=== PATIENT | male | born 1980 | race Caucasian/White ===

== ENCOUNTER 2017-07-11 08:35 | Emergency (ER) | payer MEDICAID, SELFPAY ==
[2017-07-11 08:36] VITALS: BP 173/110; PULSE 109; RESP 16; TEMP 37.1; O2SAT 97; BMI 35.0
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
== END 2017-07-11 09:10 | disposition home or self-care (01) ==
PROVIDERS: Emergency Provider Emergency Medicine
DX: G47.00 Insomnia, unspecified (principal)
CPT/HCPCS: 99282

== ENCOUNTER → 2017-10-29 14:53 | Outpatient (CLI) | payer MEDICAID, SELFPAY ==
[2017-10-29 15:45] LABS: Absolute Lymphocyte Count 2.88 X10^3/ul (0.83-4.51); Basophil# 0.03 X10^3/uL; Basophil% 0.3 % (0-1); Eosinophil# 0.06 X10^3/uL; Eosinophils% 0.6 % (0-5); Hematocrit 46.2 % (40-54); Lymphocyte # 2.88 X10^3/ul (4.0); Lymphocyte % 29.3 % (19-41); Mean Corp Hgb Conc 34.6 g/gl (32-36); Mean Corpuscular Hgb 29.9 pg (27.0-32.0); Mean Corpuscular Volume 86.2 fL (80-94); Mean Platelet Vol. 9.1 fl (6.2-12.0); Monocyte# 0.82 X10^3/uL; Monocyte% 8.3 % (0-10); Neutrophil # 5.97 X10^3/uL (2.7-7.7); Neutrophil % 60.8 % (47-70); Platelet Count 278 K/mm3 (150-450); RBC Distribution Width CV 13.6 % (11.6-14.6); RBC Distribution Width SD 42.1 fl (35.1-43.9); Red Blood Count 5.36 M/mm3 (4.6-6.2); White Blood Count 9.8 K/mm3 (4.4-11.0)
[2017-10-29 15:49] LABS: POSITIVE COUNT NO; POSITIVE DIFFERENTIAL NO; POSITIVE MORPHOLOGY NO
[2017-10-29 16:14] LABS: ALB/GLOB Ratio 1.2 RATIO (0.9-2.4); AST(SGOT) 24 U/L (15-37); Alanine Aminotransfer ALT/SGPT 79 U/L (16-61); Albumin, Serum 4.4 g/dL (3.2-5.0); Alkaline Phosphatase 125 U/L (45-117); Anion Gap 11 (5-15); BUN 7 mg/dL (7-18); Calcium,Total 9.1 mg/dL (8.5-10.1); Chloride 103 mmol/L (98-107); Creatinine, Serum 1.17 mg/dL (0.70-1.30); EST Glomerular Filtration Rate 75 mL/min (>60); Est Glom Filt Rate - Afr Amer 91 mL/min (>60); Globulin 3.8 g/dL (2.2-4.2); Glucose 96 mg/dL (74-106); Potassium 3.7 mmol/L (3.5-5.1); Protein, Total 8.2 g/dL (6.4-8.2); Sodium Level 138 mmol/L (136-145)
== END ==
PROVIDERS: Family Provider Family Medicine; PCP Family Medicine; Visit Provider Family Medicine
DX: Z01.818 Encounter for other preprocedural examination (principal)
CPT/HCPCS: 36415; 80053; 85025

== ENCOUNTER 2017-11-19 12:35 | Inpatient (IN) | payer MEDICAID, SELFPAY ==
[2017-11-18 08:56] VITALS: BMI 33.3
[2017-11-19] VITALS (9 sets, daily range): BP systolic 121–170; BP diastolic 70–102; PULSE 88–118; RESP 16–20; TEMP 35.9–37.2; O2SAT 95–100; BMI 33.3
--- NOTE | 2017-11-19 | BON_PTH ---
PATIENT: ROBERT BRADFORD LOC: MS3 U#:[id number] AGE/SX: 37/M ROOM: MS308 RE11/19/[address]: Dr. Michele Garcia DPM : 1980 BED: 1 DIS: 11/21/2017 SPEC #: [id number] RECD: 11/19/17 12:35 STATUS: JANIE REQ #: [id number] ALEX: 11/19/17 00:[address]: Michele Garcia DEPT: SURGICAL PATHOLOGY RECD BY: Taj Eaton ENTERED: 11/19/17 12:35 SP TYPE: Bone OTHR DR: Dr. Blessing Martino MD Tissues: Bone of foot, NOS Procedures: Decalcification bone/plaque Surgery Specimen Level III HEADER OPERATION: Removal hardware, chilectomy / arthroplasty first MPJ PRE-OP DIAGNOSIS: Osteoarthritis, painful hardware, nonunion third tarsometatarsal TISSUE SUBMITTED: Right first metatarsophalangeal joint MICROSCOPIC DIAGNOSIS Right first metatarsophalangeal joint: Fragments of bone with reactive changes. KATIE:alex 11/24/17 MICROSCOPIC DESCRIPTION Slides are reviewed. GROSS DESCRIPTION Received in fixative is one container labeled with the patient's name and designated right first metatarsophalangeal joint. The specimen consists of four irregular fragments of pink-minor bony tissue ranging in size from 1 to 3 cm in greatest dimension. Keyboarding Clerk sections from all fragments are submitted in one cassette after decalcification. / AM:alex 11/19/17 TC:5 CPT: 40101, 48418
--- NOTE | 2017-11-19 07:30 | RAD_ITS ---
STUDY: X-RAY - RIGHT FOOT CLINICAL: Male, 37 years old. Fracture TECHNIQUE: Intraoperative view(s) of the foot. COMPARISON: April 30, 2017 FINDINGS: Intraoperative fluoroscopy utilized for 0 minutes 45 seconds . 8 fluoroscopic images are submitted RAD/Foot 2 Views IMPRESSION: Intraoperative fluoroscopy Electronically Signed: Derrick Orr MD at 14:28 EDT , Service support ,
[2017-11-19] MEDS: Calcium Chloride 1 GM/10 ML Syringe IV (08:10)
[2017-11-19] MEDS: Heparin 10,000 UNITS/10 ML Vial 10000 UNITS (08:10)
[2017-11-19] MEDS: Bupivacaine Mpf 0.5% 30 ML VIAL (10:08)
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
--- NOTE | 2017-11-19 11:22 | RAD_ITS ---
STUDY: X-RAY - RIGHT FOOT CLINICAL: Male, 37 years old. Bone marrow aspiration from the heel TECHNIQUE: 2 view(s) of the foot. COMPARISON: April 30, 2017 FINDINGS: There are postsurgical changes status post fusion of the first second and third tarsal/metatarsal joints. There is residual hardware seen within the third toe as well as a threaded screw in the navicular. Other previously noted hardware has been removed. RAD/Foot 2 Views IMPRESSION: Post surgical changes of the first through third toes with residual orthopedic hardware in the third toe and navicula Electronically Signed: Michele Moreno MD at 16:45 EDT , Service support ,
[2017-11-19] MEDS: HYDROmorphone 1 MG/ML Syringe IV ×4 (11:58→21:45)
--- NOTE | 2017-11-19 12:20 | NURSING ---
PT DOES NOT GET VACCINES
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
[2017-11-19] MEDS: Ketorolac 30 MG/ML Syringe IV (13:01)
[2017-11-19] MEDS: Tamsulosin HCl 0.4 MG Capsule PO (13:01)
[2017-11-19] MEDS: oxyCODONE 5 MG Tablet 10 MG PO ×2 (14:11→20:08)
[2017-11-19] MEDS: Pregabalin 75 MG Capsule PO (14:12)
[2017-11-19] MEDS: Cefazolin 1 GM/50 ML BAG IV (15:36)
--- NOTE | 2017-11-19 17:32 | PCA ---
Performed straight catheterization on pt. pt tolerated well and 1000mL was taken out. Urine yellow, clear and no odor.
[2017-11-20] MEDS: Zolpidem Tartrate 5 MG Tablet PO ×2 (00:17→21:10)
[2017-11-20] MEDS: oxyCODONE 5 MG Tablet 10 MG PO ×4 (00:17→23:56)
[2017-11-20] MEDS: PARoxetine 10 MG Tablet 30 MG PO ×2 (00:20→21:09)
[2017-11-20] MEDS: Cefazolin 1 GM/50 ML BAG IV ×2 (00:20→07:17)
[2017-11-20] MEDS: Amitriptyline 10 MG Tablet 30 MG PO ×2 (00:20→21:10)
[2017-11-20] MEDS: Pantoprazole Sodium 20 MG Tablet PO ×2 (00:20→08:51)
[2017-11-20] MEDS: 0.9% NaCl Peripheral Flush Adult/Peds IV ×13 (00:21→22:22)
[2017-11-20] MEDS: HYDROmorphone 1 MG/ML Syringe IV ×6 (01:31→22:22)
[2017-11-20] MEDS: ALPRAZolam 0.5 MG Tablet PO ×3 (01:31→21:10)
[2017-11-20 02:00] VITALS: BP 150/87; PULSE 99; RESP 16; TEMP 37.6; O2SAT 94
[2017-11-20] MEDS: Pregabalin 75 MG Capsule PO ×2 (04:10→12:02)
--- NOTE | 2017-11-20 07:41 | PCM.PROGNOTE ---
Patient Problems: Active and Suspected Problems (Last Updated 08/24/17 @ 15:36 by Ana Felix) Painful retained right foot hardware (Acute) Subjective: Patient was seen this morning for follow up on right foot hardware removal, calcaneus bone marrow aspiration and injection of Ignite graft to 3rd tarsometatarsal arthrodesis site, and 1st metatarsal phalangeal joint cheilectomy arthroplasty. He was resting in bed. He relates foot is painful, he is on Dilaudid, Toradol, oxycodone, along with his normal medications Lyrica, Flexeril; he also received a right lower extremity popliteal block after surgery yesterday which may be still in effect, but appears pain is controlled at this time. Patient denies fever, chills, nausea or vomiting. - Physical Exam General: Alert, Oriented x3, Cooperative, No apparent distress Extremities: Capillary Refill Less than 3 Seconds, No Calf Tenderness, - - Right foot: dressing clean, dry and intact, no evidence of active bleeding, no strikethrough on dressing, CFT < 2 seconds to all toes, temperature normal, patient able to move toes and foot. Calf soft and supple bilateral, no evidence of DVT bilateral. Vital Signs Temp Pulse Resp BP Pulse Ox 99.6 F H 99 16 150/87 H 94 11/20/17 02:00 11/20/17 02:00 11/20/17 02:00 11/20/17 02:00 11/20/17 02:00 Oxygen Delivery Method Room Air Weight: 117.9 kg Body Mass Index (BMI) 33.3 Intake and Output for Last 24 Hours 11/18/17 11/19/17 11/20/17 23:59 23:59 23:59 Intake Total 1800 / 1800 2657 / 2657 Output Total 1250 / 1250 2325 / 2325 Balance 550 / 550 332 / 332 Laboratory Tests Past 24 Hrs 11/20/17 11/20/17 07:13 07:13 WBC Pending RBC Pending Hgb Pending Hct Pending MCV Pending MCH Pending MCHC Pending RDW Pending RDW Differential Pending Plt Count Pending Neut % (Auto) Pending Absolute Neuts (auto) Pending Total Counted Pending Sodium Pending Potassium Pending Chloride Pending Carbon Dioxide Pending Anion Gap Pending BUN Pending Creatinine Pending Est GFR (MDRD) Af Amer Pending Est GFR (MDRD) Non-Af Pending BUN/Creatinine Ratio Pending Glucose Pending Calcium Pending Medical Necessity - Tobacco Use Smoking Status: Never smoker Assessment/Plan All Active Problems (Last Updated 08/24/17 @ 15:36 by Ana Felix) Painful retained right foot hardware (Acute) Rheumatoid arthritis (Acute) Inadequate pain control (Acute) -s/p right foot hardware removal, calcaneus bone marrow aspiration and injection of Ignite graft to 3rd tarsometatarsal arthrodesis site, and 1st metatarsal phalangeal joint cheilectomy arthroplasty on 11/19/17 -Post operative pain -Chronic pain Continue with pain control. Once his pain is controlled with oxycodone he is able to go home - possibly tomorrow. Keep right foot elevated, no weightbearing right foot. Keep dressing right foot clean, dry, and intact. Appreciate medicine teams assistance.
[2017-11-20 07:42] LABS: Absolute Lymphocyte Count 2.05 X10^3/ul (0.83-4.51); Absolute Neutrophil Count 6.2 X10^3/uL (2.0-7.7); Basophil# 0.03 X10^3/uL; Basophil% 0.3 % (0-1); Eosinophil# 0.09 X10^3/uL; Hematocrit 42.9 % (40-54); Hemoglobin 13.9 g/dl (13.0-16.5); Lymphocyte # 2.05 X10^3/ul (4.0); Lymphocyte % 22.1 % (19-41); Mean Corp Hgb Conc 32.4 g/gl (32-36); Mean Corpuscular Hgb 28.8 pg (27.0-32.0); Mean Corpuscular Volume 88.8 fL (80-94); Mean Platelet Vol. 8.3 fl (6.2-12.0); Monocyte# 0.91 X10^3/uL; Monocyte% 9.8 % (0-10); Neutrophil # 6.15 X10^3/uL (2.7-7.7); Neutrophil % 66.5 % (47-70); Platelet Count 218 K/mm3 (150-450); RBC Distribution Width CV 14.1 % (11.6-14.6); RBC Distribution Width SD 45.9 fl (35.1-43.9); Red Blood Count 4.83 M/mm3 (4.6-6.2); White Blood Count 9.3 K/mm3 (4.4-11.0)
[2017-11-20 07:45] LABS: POSITIVE COUNT NO; POSITIVE DIFFERENTIAL NO; POSITIVE MORPHOLOGY NO
[2017-11-20 07:50] LABS: Anion Gap 4 (5-15); BUN 13 mg/dL (7-18); BUN/Creat Ratio 12.9 RATIO (10-20); Calcium,Total 8.4 mg/dL (8.5-10.1); Chloride 103 mmol/L (98-107); Creatinine, Serum 1.01 mg/dL (0.70-1.30); EST Glomerular Filtration Rate 89 mL/min (>60); Est Glom Filt Rate - Afr Amer 108 mL/min (>60); Estimated Creatinine Clearance 117.56 ml/min; Glucose 93 mg/dL (74-106); Potassium 3.9 mmol/L (3.5-5.1); Sodium Level 136 mmol/L (136-145)
[2017-11-20] MEDS: Ketorolac 30 MG/ML Syringe IV ×2 (08:45→18:43)
[2017-11-20] MEDS: Docusate Sodium 100 MG Capsule 200 MG PO ×3 (08:48→22:27)
[2017-11-20] MEDS: Heparin Injection (Vial) 5,000 UNIT/ML VIAL 5000 UNIT SC ×2 (08:51→21:11)
[2017-11-20] MEDS: Tamsulosin HCl 0.4 MG Capsule PO (08:52)
[2017-11-20 08:54] VITALS: BP 129/85; PULSE 87; RESP 18; TEMP 37.1; O2SAT 95
--- NOTE | 2017-11-20 09:15 | PCA ---
RN IN WITH PT
--- NOTE | 2017-11-20 10:30 | NURSING ---
pt medicated for pain as requested and discussed with primary RN. pt verbalized he feels pain medication are helping but states he has been on them for a long time and he doesn't think they last. noted slightly diaphoretic skin and pt requesting to have personal belonging bags within reach. call light within reach
--- NOTE | 2017-11-20 10:57 | NURSING ---
in to patient's room as per gasoline dragline operator pt asking her to call dr. lang for him. questioned patient as to why need to call dr. lang states that he wanted to ask dr. lang if he could do another block, states the pain medication is not lasting. informed patient request like this needs to come through the nurse. pt states well i know you're busy and didn't want to bother you. again informed the patient request like this needs to be through the nurse and that this nurse will discuss with primary and see about talking w/ dr. lang regarding his request.
--- NOTE | 2017-11-20 11:46 | PCA ---
therapy working with pt
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
--- NOTE | 2017-11-20 12:13 | CASEMGMT ---
SOCIAL WORK: Referral received from [facility] for SW to initiate a referral to [facility] Rehab unit on behalf of patient. SW initiated contact with Eve to make requested referral; advised her of patient insurance and need for pre-cert. She reports that pre-cert cannot be started until Wednesday if patient is accepted by caregivers non medical. She will follow up with primary nursing home social worker on Wednesday. VICTORINO Maher
--- NOTE | 2017-11-20 12:35 | CASEMGMT ---
CM INITIAL ASSESSMENT: Home: Patient lives alone, in a two story home, with his mother. He states he takes care of her and expresses concern for her wellbeing. The patient does not drive. He uses taxi vouchers, through [employer], to get to appointments. HHS/Aides: Denies DME: Patient states he has a cane. He states that Dr. Garcia has ordered crutches for him, but he hasn't received these yet. Home Oxygen: Denies Pharmacy: [facility] [place] Advance Directives: Patient states he does have a medical POA. He does not have these documents. Medical POA is Juan Sosa, friend. He does not have contact information for this friend. PCP: Dr. Sheffield Specialists: Dr. Garcia (foot & ankle) , Dr. Garcia (pain management) DC Plan: Undetermined. Patient declined therapy today d/t pain. Social work referral for assistance with financial concerns patient stated. CM will continue to follow for safe and effective discharge planning.
--- NOTE | 2017-11-20 13:02 | NURSING ---
Despite all the prn and scheduled pain medications, pt crying, high anxiety. Still very painful. education given regarding anxiety and pain. Pt had recently called the dimmer board operator and asked for Dr. Garcia. Aviva dorsey nurse found out and talked with the pt about this. Mr. Hunter called dimmer board operator to see if Dr. Garcia could re-do the block. After this nurse talking with pt about how it is un-likely for the block to be done, pt still very concentrated on getting a block. Informed the pt that I could call Dr. Garcia and see what he thought. Dr. Garcia aware, no orders for block. Mr. Hunter informed of this and that this nurse will talk with Dr. Correa about pain medication and that it is not working.
--- NOTE | 2017-11-20 14:00 | CASEMGMT ---
Patient seen per RN MINH's stated request due to patient statement regarding not having a working hot water tank. SW met with patient in his room to introduce self and SW role and to assess for needs. Patient has been heating water on a stove burner for a couple of months and requests information for assistance with getting a new hot water tank. He also requests financial assistance with his cell phone and with repair of a truck that has not worked for 4 years. Patient has not been employed for 13 years. He resides with his mother who has SALAZAR and Fibromyalgia. She reportedly receives Social Security and a small pension. Patient receives food stamps and is on [employer]. They use [employer] transportation through [employer] and a neighbor assists when able. Patient has reportedly applied for SSDI numerous times and been denied. PCP is Dr. Sheffield. SW provided patient with information on [employer]'s programs along with their contact information (which includes their car repair program); contact information for [employer] and [employer] Cell Phone Assistance Program application. Patient already familiar with [employer] and has received assistance from them throughout this past year. No further needs identified. Update provided to [facility]. VICTORINO Maher
--- NOTE | 2017-11-20 14:22 | NURSING ---
This nurse assisted pt to walk to bathroom using non-bearing on the rt foot and using wheeled walker. Feels like has to have bm. Offered pt pain medication. Wanted to wait one hour but rating pain 8 out of 10. this nurse encouraged him to take pain meds now. Pt agreed. Does not appear to be in pain. States Its a lot better then it was. Will continue to monitor.
[2017-11-20 14:25] VITALS: BP 144/87; PULSE 90; RESP 18; TEMP 37.1; O2SAT 98
[2017-11-20] MEDS: Bisacodyl 10 MG Suppository RECTAL (16:48)
--- NOTE | 2017-11-20 19:49 | NURSING ---
pt has been fixated on his bowels this afternoon/evening. colace po and warm prune juice given. Pt then requesting suppository since the later two did not work. pt asked how long it would take for suppository to work. Now pt states he wants an enema b/c suppository has not worked. THis nurse educated on waiting for colace and suppository to work and not enough time has gone by to work. pt very fixated on enema. At shift change, pt called out and with flat affect stated he wants to go home. When this nurse and bakeshop cleaner nurse that is assigned to him approached him about it patient stated, because I can give myself an enema at home. This nurse asked pt if he thought his pain would be controlled at home, No I don't think so but still wants to go home. Dr. Garcia paged, informed and at first was okay with Dr. Garcia for patient to go home but then there is no way for pain medication to be called in to pharmacy and pharmacy already closed. Dr. Garcia then talked with Asael Hunter over the phone for approximately 10min. Pt is staying and Dr. Garcia ordered a fleets enema. Saritha book sorter RN aware.
[2017-11-20 20:00] VITALS: BP 157/84; PULSE 83; RESP 16; TEMP 37; O2SAT 100
[2017-11-20] MEDS: Fleet Enema 1 ML RECTAL (21:11)
--- NOTE | 2017-11-20 23:15 | NURSING ---
Patient c/o chest pain. Vital wnl. EKG completed. Dr. tay notified of results, no new orders at this time. After EKG was preformed, pt stated pain was more related to upper abd pain than chest and that pain had decrease.
[2017-11-21 02:00] VITALS: BP 149/80; PULSE 86; RESP 18; TEMP 36.6; O2SAT 98
[2017-11-21 08:00] VITALS: BP 151/96; PULSE 79; RESP 18; TEMP 36.6
[2017-11-21] MEDS: Ibuprofen 600 MG Tablet PO (09:33)
[2017-11-21] MEDS: Pregabalin 75 MG Capsule PO (09:33)
[2017-11-21] MEDS: Docusate Sodium 100 MG Capsule 200 MG PO (09:33)
[2017-11-21] MEDS: oxyCODONE 5 MG Tablet 10 MG PO (09:34)
[2017-11-21] MEDS: Pantoprazole Sodium 20 MG Tablet PO (09:35)
[2017-11-21] MEDS: Heparin Injection (Vial) 5,000 UNIT/ML VIAL 5000 UNIT SC (09:35)
--- NOTE | 2017-11-21 10:38 | PCM.PROGNOTE ---
Patient Problems: Active and Suspected Problems (Last Updated 08/24/17 @ 15:36 by Ana Felix) Painful retained right foot hardware (Acute) Subjective: Patient was seen today for follow up right foot. He relates he feels good enough to go home today. He relates to abdominal pain, states he had a small bowel movement after enema yesterday, he is asking to also be discharged home with stool softer and an enema. - Physical Exam General: Alert, Oriented x3, Cooperative, No apparent distress Extremities: Capillary Refill Less than 3 Seconds, No Calf Tenderness, Peripheral Pulses Normal, - - Right foot: dressing clean, dry and intact, no evidence of active bleeding, no strikethrough on dressing, incision sites well coapted, no dehiscence, no evidence of infection, no cellulitis, no drainage, sutures intact, there is some edema to foot c/w normal post op course, CFT < 2 seconds to all toes, temperature normal, patient able to move toes and foot. Sensation intact to right foot, motor function intact to right foot. Calf soft and supple bilateral, no evidence of DVT bilateral. Vital Signs Temp Pulse Resp BP Pulse Ox 97.9 F 79 18 151/96 H 98 11/21/17 08:00 11/21/17 08:00 11/21/17 08:00 11/21/17 08:00 11/21/17 02:00 Oxygen Delivery Method Room Air Weight: 117.9 kg Body Mass Index (BMI) 33.3 Intake and Output for Last 24 Hours 11/19/17 11/20/17 11/21/17 23:59 23:59 23:59 Intake Total 1800 / 1800 3923 / 3923 510 / 510 Output Total 1250 / 1250 4775 / 4775 400 / 400 Balance 550 / 550 -852 / -852 110 / 110 Medical Necessity - Tobacco Use Smoking Status: Never smoker Assessment/Plan All Active Problems (Last Updated 08/24/17 @ 15:36 by Ana Felix) Painful retained right foot hardware (Acute) Rheumatoid arthritis (Acute) Inadequate pain control (Acute) -s/p right foot hardware removal, calcaneus bone marrow aspiration and injection of Ignite graft to 3rd tarsometatarsal arthrodesis site, and 1st metatarsal phalangeal joint cheilectomy arthroplasty on 11/19/17 -Post operative pain -Chronic pain From podiatry standpoint ok for patient to be discharged home, however pending medicine evaluation of abdominal pain. Have reviewed post op pain control with patient's pain management physician Dr. Garcia who recommended oxycodone 10mg tabs: 1.5 tabs q 4-6 hours prn pain for 1 week. A prescription was written and placed in the patient's chart. He is to keep right foot elevated, and no weightbearing right foot. The dressing was changed today, painted betadine solution to incision sites, and applied clean, dry, gauze and mamta dressing. He is to keep dressing right foot clean, dry, and intact. He is to follow up with me in office Sunday November 26, 2017. This was discussed with patient. He agreed with plan. All of his questions were answered. Appreciate medicine teams assistance.
--- NOTE | 2017-11-21 10:58 | PCM.DC.POD ---
Discharge Diet: Light diet - advance as tolerated Discharge Activity: May Not Drive Weight Bearing Status: No weight bearing - Strict nonweightbearing right foot Keep extremity elevated above heart level: Right Leg - Keep right foot elevated at all times Call your doctor if your incision/area has: Continuous Slow Oozing, Sudden Increased Bleeding, Increased Redness, Foul Smelling Discharge Call your doctor if you observe: Fever of 101 or Higher, Coldness, Increased Pain, Shortness of breath, Chest pain, Increased palpitations (irregular heartbeat), Calf discomfort, Uncontrolled pain Cleanse incision/area with: Do not get Incision Wet, Keep Dressing Clean & Dry Allergies/Adverse Reactions: Allergies No Known Allergies Allergy (Verified 07/11/17 08:39) Medications to take at Discharge Loratadine [Claritin] 10 mg PO DAILY 03/26/13 Ibuprofen [Motrin] 600 mg PO Q6H PRN PRN #20 tablet 03/31/13 Testosterone Cypionate [Testone Cik] 200 mg IM UD 07/23/15 Cyclobenzaprine [Flexeril] 10 mg PO TID PRN #20 tablet 08/16/15 Paroxetine HCl [Paxil] 30 mg PO QHS 11/25/16 Rabeprazole Sodium [Aciphex] 20 mg PO QHS 11/25/16 Clotrimazole/Betamethasone Dip [Lotrisone Cream] 15 gm TP BID 14 Days cream..g. 04/30/17 Tadalafil [Cialis] 5 mg PO PRN PRN 04/30/17 alprazolam 1 mg tablet 1 mg PO BID #60 tab 07/19/17 amitriptyline 10 mg tablet 30 mg PO QHS #90 tab 07/19/17 zolpidem 10 mg tablet 10 mg PO QHS #30 tab 08/24/17 ALPRAZolam [Xanax] 4 mg PO QHS 11/19/17 Omeprazole [Prilosec] 20 mg PO DAILY 11/19/17 Oxycodone HCl/Acetaminophen [Percocet 10-325 mg Tablet] 1 tablet PO Q6H PRN PRN 11/19/17 Pregabalin [Lyrica] 75 mg PO BID PRN PRN 11/19/17 Oxycodone [Oxyir] 15 mg PO Q4H PRN PRN #56 tab 11/21/17 The following prescriptions were given: Oxycodone [Oxyir] 15 mg PO Q4H PRN PRN #56 tab PRN Reason: Pain Primary Care Physician: Blessing Martino MD [Primary Care Provider] - Please Follow Up With: Michele Garcia DPM When: Sunday November 26, 2017 at [facility]
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
== END 2017-11-21 12:30 | disposition home or self-care (01) | DRG 231 ==
LOC: MS3 11-20 07:56 → SDC 11-20 07:56
PROVIDERS: Admitting Provider Internal Medicine; Family Provider Internal Medicine; PCP Internal Medicine; Visit Provider Podiatrist
PROC: 0QPN04Z Removal of Internal Fixation Device from Right Metatarsal, Open Approach (ICD-10-PCS; principal; 2017-11-19 07:15)
DX: T84.84XA Pain due to internal orthopedic prosthetic devices, implants and grafts, initial encounter (principal); F84.5 Asperger's syndrome; R33.9 Retention of urine, unspecified; M19.071 Primary osteoarthritis, right ankle and foot; M96.0 Pseudarthrosis after fusion or arthrodesis; Z98.1 Arthrodesis status; M79.7 Fibromyalgia; F41.9 Anxiety disorder, unspecified; F32.9 Major depressive disorder, single episode, unspecified; N52.9 Male erectile dysfunction, unspecified; K21.9 Gastro-esophageal reflux disease without esophagitis; E29.1 Testicular hypofunction; Z79.899 Other long term (current) drug therapy
CPT/HCPCS: 36415; 73620; 76000; 80048; 85025; 88304; 88311; 93005; 97161; C1713; J7120; A4216; J0330; J2405

== ENCOUNTER 2018-06-22 17:45 | Emergency (ER) | payer MEDICAID, SELFPAY ==
[2018-06-22 17:45] VITALS: BMI 35.0
[2018-06-22 17:46] VITALS: BP 160/86; PULSE 105; RESP 24; TEMP 36.3; O2SAT 100; BMI 32.3
--- NOTE | 2018-06-22 18:57 | ED.VISSUMM ---
- ER Visit Summary Date of Service: 06/22/18 Chief Complaint: Out of medication History of Present Illness: The patient is a 37 M who is requesting a refill of his alprazolam and Ambien. He ran out 3 days ago. He missed his doctor's appointment last week because he had difficulty scheduling the appointment. He says he was due for a refill on Wednesday, but that they would not refill his medication because he missed his appointment. He has a appointment for this Wednesday scheduled. He feels anxious and has trouble sleeping. He feels like he is having a panic attack. No seizures. No other new issues. Physical Examination: Patient is alert and oriented. Pacing about the room. Anxious. Denies suicidal or homicidal thoughts. Heart regular. Lungs clear. Skin unremarkable. Test Results: None performed Emergency Department Course and Treatment: I did check the patient's OARRS report. He was on alprazolam 1 mg twice a day and he was scheduled to run out yesterday. He was on Ambien 10 mg once a day and was scheduled to run out yesterday. Will refill a 3-day supply of these medications and the patient may follow-up with his physician on Wednesday. Treatment Plan: As above Disposition: Discharge Impression: 1. Anxiety This note was generated with [employer] dictation software. It may contain incorrect words, spelling, and punctuation that were not noted in review of the chart prior to signing ED Disposition - Plan for ED Patient: Chief Complaint: Anxiety Referrals: Blessing Martino MD [Primary Care Provider] -
--- NOTE | 2018-06-22 19:00 | ED.DEP ---
ED Disposition - Plan for ED Patient: Chief Complaint: Anxiety Instructions: ED Panic Attack Prescriptions: Zolpidem Tartrate [Ambien] 10 mg PO QHS 3 Days #3 tab ALPRAZolam [Xanax] 1 mg PO BID 3 Days #6 tab Referrals: Blessing Martino MD [Primary Care Provider] -
[2018-06-22] MEDS: LORazepam 1 MG Tablet PO (19:20)
--- OUTSIDE RECORDS SUMMARY | 2018-08-27 17:06 | XMS RPT_ITS ---
:1980 Author Organization OHIP Support Name Relationship Address Phone PORTER, KSENIA Unavailable [address] + [place] [address] UE Unavailable Unavailable Unavailable PORTER, KSENIA Unavailable [address] + [place] [address] UE Unavailable Unavailable Unavailable PORTER, KSENIA Unavailable [address] [phone] [place] [address] UE Unavailable Unavailable Unavailable PORTER, KSENIA Unavailable [address] [phone] [place] [address] UE Unavailable Unavailable Unavailable PORTER, KSENIA Unavailable [address] + [place] [address] UE Unavailable Unavailable Unavailable PORTER, KSENIA Unavailable [address] + [place] [address] UE Unavailable Unavailable Unavailable PORTER, KSENIA Unavailable [address] + [place] [address] UE Unavailable Unavailable Unavailable PORTER, KSENIA Unavailable [address] [phone] [place] [address] UE Unavailable Unavailable Unavailable PORTER, KSENIA Unavailable [address] [phone] [place] [address] UE Unavailable Unavailable Unavailable PORTER, KSENIA Unavailable [address] [phone] [place] [address] UE Unavailable Unavailable Unavailable PORTER, KSENIA Unavailable [address] [phone] [place] [address] UE Unavailable Unavailable Unavailable Care Team Providers Name Role Phone Bola Gong Attending Unavailable Michele Silverman Primary Care Unavailable Primay Care Physicia, No Primary Care Unavailable Yung Beckford Attending Unavailable Oleghe, Efewongbe Attending Unavailable Oleghe, Efewongbe Referring Unavailable Oleghe, Efewongbe Attending Unavailable Oleghe, Efewongbe Referring Unavailable Primay Care Physicia, No Primary Care Unavailable Qi Izquierdo Attending Unavailable Kontak, Michele Primary Care Unavailable Geonning, Michele Consulting Unavailable Geonning, Michele Attending Unavailable Wunning, Michele Referring Unavailable Oleghe, Efewongbe Primary Care Unavailable Sunny, Donte Admitting Unavailable Sunny, Donte Admitting Unavailable Sunny, Donte Attending Unavailable Wunning, Michele Referring Unavailable Oleghe, Efewongbe Primary Care Unavailable Wunning, Michele Consulting Unavailable Sunny, Donte Admitting Unavailable Sunny, Donte Attending Unavailable Wunning, Michele Referring Unavailable Oleghe, Efewongbe Primary Care Unavailable Wunning, Michele Consulting Unavailable Sunny, Donte Admitting Unavailable Sunny, Donte Attending Unavailable Wunning, Michele Referring Unavailable Oleghe, Efewongbe Primary Care Unavailable Wunning, Michele Consulting Unavailable Amado Kelsey Attending Unavailable Geonning, Michele Attending Unavailable Wunning, Michele Referring Unavailable Oleghe, Efewongbe Primary Care Unavailable MARION SILVERMAN Attending Unavailable MARION SILVERMAN Attending Unavailable MARION SILVERMAN Referring Unavailable MARION SILVERMAN Attending Unavailable MARION SILVERMAN Attending Unavailable Sari Garcia Attending Unavailable Sari Garcia Attending Unavailable Sari Garcia Attending Unavailable No Family Physician given Primary Care Unavailable Sari Garcia Attending Unavailable No Family Physician given Primary Care Unavailable [facility] Attending Unavailable No Family Physician given Primary Care Unavailable PROBLEMS PROBLEMS DATE TYPE CONDITION / CODE ATTENDING STATUS SOURCE 06/22/2018 Unknown G47.00 - Bola Gong Active [facility] unspecified / Hospital G47.00(ICD-10) Repository 06/22/2018 Unknown F41.8 - Other Bola Gong Active [place] specified anxiety Community disorders / Hospital F41.8(ICD-10) Repository 12/16/2017 Unknown M19.071 - Primary Sunny, Donte Active [facility] osteoarthritis, Community right ankle and Hospital foot / Repository M19.071(ICD-10) 01/07/2018 Unknown R07.9 - Chest Low, [place] Active [facility] pain, unspecified Community / R07.9(ICD-10) Hospital Repository 08/24/2017 Unknown F84.5 - Oleghe, Active [place] Asperger's Efewongbe Community syndrome / Hospital F84.5(ICD-10) Repository 07/06/2017 Admitting Unknown / [place], Active [facility] UNK(Unknown) [facility] Repository PROCEDURES PROCEDURES No Procedure Records FoundRESULTS RESULTS PROGRESS Observed: 06/28/2018 Status: COMPLETED Source: [place] 7:41 AM [facility] REPOSITORY HNO ID: [id number] Author: Marion Silverman Service: (none) Author Type: Physician Type: Progress Notes Filed: 06/28/2018 7:45 AM Note Text: Asael follows up for his chronic anxiety. Chronic pain. He continues to get narcotics from pain management. He was perturbed because we would not fill his prescription prior to his appointment date. PDMP website checked and validated. All prescriptions have been APPROPRIATELY filled. No suspicious activity was identified. 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 Dysmetabolic Syndrome X Fibromyalgia Depression Chronic anxiety Insomnia Degenerative Disc Disease, Lumbar Hypogonadism in Male Arthritis Bph (Benign Prostatic Hyperplasia) Bilateral Low Back Pain With Sciatica Midline Thoracic Back Pain Fibromyalgia Syndrome Essential Hypertension PAST MEDICAL HISTORY Diagnosis Date - Anxiety - BPH (benign prostatic hypertrophy) - DDD (degenerative disc disease) - Depression - Hyperlipidemia 9 years old - Insomnia - Knee pain, bilateral - Lisfranc dislocation, right, sequela 11/2016 - Rheumatoid arthritis (HCC) PAST SURGICAL HISTORY Procedure Laterality Date - PAST SURGICAL HISTORY OF Thoraic sol - PAST SURGICAL HISTORY OF Epideryal - PAST SURGICAL HISTORY OF D. septum ALLERGIES Seasonal Allergies MEDICATIONS ALPRAZolam 2 mg tablet Take 1 tablet by mouth twice daily as needed for up to 90 days. ALPRAZolam (XANAX) 1 mg tablet Take 1 tablet by mouth twice daily for 90 days. Along with the 2 mg tablet Blood Pressure Test Kit-Large (QUICK RESPONSE BP MONITOR) kit Check blood pressure weekly an as needed. (I10) Essential hypertension (primary encounter diagnosis) zolpidem (AMBIEN) 10 mg tab Take 1 tablet by mouth at bedtime as needed for up to 90 days. Tadalafil 5 mg tablet take 1 tablet by mouth once daily gabapentin (NEURONTIN) 300 mg capsule take 1 capsule by mouth three times a day metoprolol succinate ER (TOPROL XL) 50 mg 24 hr tablet take 1 tablet by mouth once daily oxybutynin (DITROPAN) 5 mg tablet take 1 tablet by mouth three times a day testosterone cypionate (DEPO-TESTOSTERONE) 200 mg/mL injection Inject 1 mL intramuscularly once each week for 90 days. tamsulosin ER (FLOMAX) 0.4 mg cap Take 1 capsule by mouth daily at bedtime. DULoxetine (CYMBALTA) 60 mg capsule Take 1 capsule by mouth once daily. cyclobenzaprine (FLEXERIL) 10 mg tablet Take 1 tablet by mouth once daily. PARoxetine (PAXIL) 30 mg tablet Take 1 tablet by mouth twice daily as needed. RABEprazole (ACIPHEX) 20 mg tablet Take 1 tablet by mouth once daily. Pramoxine-Hydrocortisone (ANALPRAM-HC) 1-1 % rectal cream 1 application by RECTAL route twice daily. Latex Gloves (LATEX GLOVES, LARGE) misc Use 1 pair 4 times a day as needed for applying ointment. ibuprofen (MOTRIN) 600 mg tablet Take 1 tablet by mouth every 6 hours as needed. alcohol swabs (ALCOHOL WIPES) padm Use as needed to clean up excess topical ointment. lidocaine (XYLOCAINE) 5 % ointment Apply 1 application to affected area three times daily as needed. Syringe with Needle, Disp, (BD LUER-HARI SYRINGE) 3 mL 22 x 1 1/2 syrg Inject 1 Each intramuscularly once each week. loratadine (CLARITIN) 10 mg tablet Take 1 tablet by mouth once daily. amitriptyline (ELAVIL) 10 mg tablet Take 1 tablet by mouth three times daily. 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 HEENT: No sinus congestion, earache, sore throat. Cardiac: No chest pain, palpitations, shortness of breath Resp: No cough, wheeze. GI: + R side abd pain. No change in bowel.s No reflux symptoms, food intolerance, bowel changes. : No urinary frequency, dysuria. MS: aggravation of ankle pain recently No pain or joint complaints. PHYSICAL EXAMINATION BP 126/86 Pulse 78 Resp 19 Ht 188 cm (6' 2) Wt 110.7 kg (244 lb) SpO2 100% BMI 31.33 kg/m? General: Alert and oriented, no distress, pleasant and cooperative. He is well groomed, no acute distress. He is walking on crutches. Heart: Regular, normal S1 and S2, no murmurs, rubs, or gallops Lungs: Clear to auscultation bilaterally Abdomen: There is mild abdominal pain just to the right of the umbilicus. No guarding rebound or mass. No swelling. Extremities: Feet/ankles without edema, posterior tibial pulses full and symmetrical Assessment/Plan: (I10) Essential hypertension (primary encounter diagnosis) Comment: His blood pressure is high Plan: Blood Pressure Test Kit-Large (QUICK RESPONSE BP MONITOR) kit A pressure cuff prescription written (F41.9) Anxiety Comment: Chronic anxiety with benzodiazepine dependency Plan: ALPRAZolam 2 mg tablet, ALPRAZolam (XANAX) 1 mg tablet He is advised he will only get his prescriptions at his appointment, the previous prescription was written for 90 day supply and he has to schedule his appointments accordingly. (G47.00) Insomnia, unspecified type Comment: As above Plan: zolpidem (AMBIEN) 10 mg tab Refill with caution Signed Prescriptions Disp Refills ALPRAZolam 2 mg tablet 60 tablet 2 Sig: Take 1 tablet by mouth twice daily as needed for up to 90 days. LESLI Class: C-IV ALEXANDRO: No ALPRAZolam (XANAX) 1 mg tablet 60 tablet 2 Sig: Take 1 tablet by mouth twice daily for 90 days. Along with the 2 mg tablet LESLI Class: C-IV ALEXANDRO: No Blood Pressure Test Kit-Large (QUICK RESPONSE BP MONITOR) kit 1 Kit 0 Sig: Check blood pressure weekly an as needed. (I10) Essential hypertension (primary encounter diagnosis) zolpidem (AMBIEN) 10 mg tab 30 tablet 2 Sig: Take 1 tablet by mouth at bedtime as needed for up to 90 days. LESLI Class: C-IV ALEXANDRO: No RTO: Within 90 days. Marion Silverman MD CNOV Observed: 06/24/2018 Status: COMPLETED Source: [place] 4:20 PM [facility] REPOSITORY Office Visit (FPWADS) SUZETTEASAEL ([id number]) 1980 M Date Time Provider Department 06/24/18 4:20 PM MARION SILVERMAN During your visit today, we recorded the following information about you: Pulse Respiration Blood pressure Weight 78/minute 19/minute 126/86 110.7 kg Height 1.88 m Gabriella Carrillo Carrie 06/24/2018 4:09 PM Signed Patient presents with: Follow Up Marion Silverman MD 06/28/2018 7:45 AM Signed Asael follows up for his chronic anxiety. Chronic pain. He continues to get narcotics from pain management. He was perturbed because we would not fill his prescription prior to his appointment date. PDMP website checked and validated. All prescriptions have been APPROPRIATELY filled. No suspicious activity was identified. 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 Dysmetabolic Syndrome X Fibromyalgia Depression Chronic anxiety Insomnia Degenerative Disc Disease, Lumbar Hypogonadism in Male Arthritis Bph (Benign Prostatic Hyperplasia) Bilateral Low Back Pain With Sciatica Midline Thoracic Back Pain Fibromyalgia Syndrome Essential Hypertension PAST MEDICAL HISTORY Diagnosis Date - Anxiety - BPH (benign prostatic hypertrophy) - DDD (degenerative disc disease) - Depression - Hyperlipidemia 9 years old - Insomnia - Knee pain, bilateral - Lisfranc dislocation, right, sequela 11/2016 - Rheumatoid arthritis (HCC) PAST SURGICAL HISTORY Procedure Laterality Date - PAST SURGICAL HISTORY OF Thoraic slo - PAST SURGICAL HISTORY OF Epideryal - PAST SURGICAL HISTORY OF D. septum ALLERGIES Seasonal Allergies MEDICATIONS ALPRAZolam 2 mg tablet Take 1 tablet by mouth twice daily as needed for up to 90 days. ALPRAZolam (XANAX) 1 mg tablet Take 1 tablet by mouth twice daily for 90 days. Along with the 2 mg tablet Blood Pressure Test Kit-Large (QUICK RESPONSE BP MONITOR) kit Check blood pressure weekly an as needed. (I10) Essential hypertension (primary encounter diagnosis) zolpidem (AMBIEN) 10 mg tab Take 1 tablet by mouth at bedtime as needed for up to 90 days. Tadalafil 5 mg tablet take 1 tablet by mouth once daily gabapentin (NEURONTIN) 300 mg capsule take 1 capsule by mouth three times a day metoprolol succinate ER (TOPROL XL) 50 mg 24 hr tablet take 1 tablet by mouth once daily oxybutynin (DITROPAN) 5 mg tablet take 1 tablet by mouth three times a day testosterone cypionate (DEPO-TESTOSTERONE) 200 mg/mL injection Inject 1 mL intramuscularly once each week for 90 days. tamsulosin ER (FLOMAX) 0.4 mg cap Take 1 capsule by mouth daily at bedtime. DULoxetine (CYMBALTA) 60 mg capsule Take 1 capsule by mouth once daily. cyclobenzaprine (FLEXERIL) 10 mg tablet Take 1 tablet by mouth once daily. PARoxetine (PAXIL) 30 mg tablet Take 1 tablet by mouth twice daily as needed. RABEprazole (ACIPHEX) 20 mg tablet Take 1 tablet by mouth once daily. Pramoxine-Hydrocortisone (ANALPRAM-HC) 1-1 % rectal cream 1 application by RECTAL route twice daily. Latex Gloves (LATEX GLOVES, LARGE) misc Use 1 pair 4 times a day as needed for applying ointment. ibuprofen (MOTRIN) 600 mg tablet Take 1 tablet by mouth every 6 hours as needed. alcohol swabs (ALCOHOL WIPES) padm Use as needed to clean up excess topical ointment. lidocaine (XYLOCAINE) 5 % ointment Apply 1 application to affected area three times daily as needed. Syringe with Needle, Disp, (BD LUER-HARI SYRINGE) 3 mL 22 x 1 1/2 syrg Inject 1 Each intramuscularly once each week. loratadine (CLARITIN) 10 mg tablet Take 1 tablet by mouth once daily. amitriptyline (ELAVIL) 10 mg tablet Take 1 tablet by mouth three times daily. 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 HEENT: No sinus congestion, earache, sore throat. Cardiac: No chest pain, palpitations, shortness of breath Resp: No cough, wheeze. GI: + R side abd pain. No change in bowel.s No reflux symptoms, food intolerance, bowel changes. : No urinary frequency, dysuria. MS: aggravation of ankle pain recently No pain or joint complaints. PHYSICAL EXAMINATION BP 126/86 Pulse 78 Resp 19 Ht 188 cm (6' 2) Wt 110.7 kg (244 lb) SpO2 100% BMI 31.33 kg/m? General: Alert and oriented, no distress, pleasant and cooperative. He is well groomed, no acute distress. He is walking on crutches. Heart: Regular, normal S1 and S2, no murmurs, rubs, or gallops Lungs: Clear to auscultation bilaterally Abdomen: There is mild abdominal pain just to the right of the umbilicus. No guarding rebound or mass. No swelling. Extremities: Feet/ankles without edema, posterior tibial pulses full and symmetrical Assessment/Plan: (I10) Essential hypertension (primary encounter diagnosis) Comment: His blood pressure is high Plan: Blood Pressure Test Kit-Large (QUICK RESPONSE BP MONITOR) kit A pressure cuff prescription written (F41.9) Anxiety Comment: Chronic anxiety with benzodiazepine dependency Plan: ALPRAZolam 2 mg tablet, ALPRAZolam (XANAX) 1 mg tablet He is advised he will only get his prescriptions at his appointment, the previous prescription was written for 90 day supply and he has to schedule his appointments accordingly. (G47.00) Insomnia, unspecified type Comment: As above Plan: zolpidem (AMBIEN) 10 mg tab Refill with caution Signed Prescriptions Disp Refills ALPRAZolam 2 mg tablet 60 tablet 2 Sig: Take 1 tablet by mouth twice daily as needed for up to 90 days. LESLI Class: C-IV ALEXANDRO: No ALPRAZolam (XANAX) 1 mg tablet 60 tablet 2 Sig: Take 1 tablet by mouth twice daily for 90 days. Along with the 2 mg tablet LESLI Class: C-IV ALEXANDRO: No Blood Pressure Test Kit-Large (QUICK RESPONSE BP MONITOR) kit 1 Kit 0 Sig: Check blood pressure weekly an as needed. (I10) Essential hypertension (primary encounter diagnosis) zolpidem (AMBIEN) 10 mg tab 30 tablet 2 Sig: Take 1 tablet by mouth at bedtime as needed for up to 90 days. LESLI Class: C-IV ALEXANDRO: No RTO: Within 90 days. Marion Silverman MD Referring Provider: SELF [200] Allergies As of Date: 06/24/2018 Noted Allergy Reaction SEASONAL ALLERGIES 09/01/2016 14 - Other: See Comments Comments: Itchy and watery eyes, cough, sneeze Date Reviewed: 06/24/2018 Reviewed by: Gabriella Carrillo Ma - Fully Assessed Reason for Visit: Follow Up [171] Primary Visit Diagnosis:Essential hypertension [I10] Other Visit Diagnoses:Anxiety [F41.9] Insomnia, unspecified type [G47.00] Order(s):ALPRAZolam 2 mg tabletTake 1 tablet by mouth twice daily as needed for up to 90 days.Disp: 60 tabletRfl: 2 ALPRAZolam (XANAX) 1 mg tabletTake 1 tablet by mouth twice daily for 90 days. Along with the 2 mg tabletDisp: 60 tabletRfl: 2 Blood Pressure Test Kit-Large (QUICK RESPONSE BP MONITOR) kitCheck blood pressure weekly an as needed. (I10) Essential hypertension (primary encounter diagnosis)Disp: 1 KitRfl: 0 zolpidem (AMBIEN) 10 mg tabTake 1 tablet by mouth at bedtime as needed for up to 90 days.Disp: 30 tabletRfl: 2 Prescriptions as of 06/24/2018 Sig: ALPRAZOLAM 2 MG TABLET Take 1 tablet by mouth twice * ALPRAZOLAM 1 MG TABLET Take 1 tablet by mouth twice * BLOOD PRESSURE TEST KIT-LARGE* Check blood pressure weekly a* ZOLPIDEM 10 MG TABLET Take 1 tablet by mouth at bed* TADALAFIL 5 MG TABLET take 1 tablet by mouth once d* GABAPENTIN 300 MG CAPSULE take 1 capsule by mouth three* METOPROLOL SUCCINATE ER 50 MG* take 1 tablet by mouth once d* OXYBUTYNIN CHLORIDE 5 MG TABL* take 1 tablet by mouth three * TESTOSTERONE CYPIONATE 200 MG* Inject 1 mL intramuscularly o* TAMSULOSIN 0.4 MG CAPSULE Take 1 capsule by mouth daily* DULOXETINE 60 MG CAPSULE,JUDY* Take 1 capsule by mouth once * CYCLOBENZAPRINE 10 MG TABLET Take 1 tablet by mouth once d* PAROXETINE 30 MG TABLET Take 1 tablet by mouth twice * RABEPRAZOLE 20 MG TABLET,JUDY* Take 1 tablet by mouth once d* HYDROCORTISONE-PRAMOXINE 1 %-* 1 application by RECTAL route* LATEX GLOVES Use 1 pair 4 times a day as n* IBUPROFEN 600 MG TABLET Take 1 tablet by mouth every * ALCOHOL SWABS Use as needed to clean up exc* LIDOCAINE 5 % TOPICAL OINTMENT Apply 1 application to affect* SYRINGE WITH NEEDLE 3 ML 22 X* Inject 1 Each intramuscularly* LORATADINE 10 MG TABLET Take 1 tablet by mouth once d* AMITRIPTYLINE 10 MG TABLET Take 1 tablet by mouth three * EMPTY CONTAINER use as directed CANE Requires cane for ambulation,* Problem List As Of Date 06/24/2018 Noted Resolved PITUITARY DISORDER NOS [E23.7] INVALID FOR* DYSMETABOLIC SYNDROME X [E88.81] INVALID FOR* Fibromyalgia [M79.7] INVALID FOR* Depression [F32.9] INVALID FOR* Chronic anxiety [F41.9] INVALID FOR* Insomnia [G47.00] INVALID FOR* Degenerative disc disease, lumbar [M51.36] INVALID FOR* More... Hypogonadism in male [E29.1] INVALID FOR* Arthritis [M19.90] INVALID FOR* BPH (benign prostatic hyperplasia) [N40.0] INVALID FOR* Bilateral low back pain with sciatica [M54.40] INVALID FOR* Midline thoracic back pain [M54.6] INVALID FOR* Fibromyalgia syndrome [M79.7] INVALID FOR* Essential hypertension [I10] INVALID FOR* Visit Notes: >> Gabriella Carrillo Ma WedJun 24, 2018 4:07 PM Status: Signed Patient presents with: Follow Up Prescriptions ordered this encounter Disp Refills Start End ALPRAZOLAM 2 MG TABLET 60 t* 2 06/24/2018 09/22/2018 Class: Print RX Route: ORAL Sig: Take 1 tablet by mouth twice daily as needed for up to 90 days. ALPRAZOLAM 1 MG TABLET 60 t* 2 06/24/2018 09/22/2018 Class: Print RX Route: ORAL Sig: Take 1 tablet by mouth twice daily for 90 days. Along with the 2 mg tablet BLOOD PRESSURE TEST KIT-LARGE CUFF 1 Kit 0 06/24/2018 Class: Print RX Sig: Check blood pressure weekly an as needed. (I10) Essential hypertension (primary encounter diagnosis) ZOLPIDEM 10 MG TABLET 30 t* 2 06/24/2018 09/22/2018 Class: Print RX Route: ORAL Sig: Take 1 tablet by mouth at bedtime as needed for up to 90 days. Medications Discontinued During This Encounter ALPRAZolam 2 mg tablet 60 t* 2 03/24/2018 06/24/2018 Class: Print RX Route: ORAL Sig: Take 1 tablet by mouth twice daily as needed for up to 90 days. Disc: Reason for discontinue is not on file. ALPRAZolam (XANAX) 1 mg tablet 60 t* 2 03/24/2018 06/24/2018 Class: Print RX Route: ORAL Sig: Take 1 tablet by mouth twice daily for 90 days. Along with the 2 mg tablet Disc: Reason for discontinue is not on file. zolpidem (AMBIEN) 10 mg tab 30 t* 2 03/24/2018 06/24/2018 Class: Print RX Route: ORAL Sig: Take 1 tablet by mouth at bedtime as needed for up to 30 days. Disc: Reason for discontinue is not on file. Encounter Status:Closed by MICHELE SILVERMAN MD on 06/28/18 EMERGENCY DEPARTMENT Observed: 06/22/2018 Status: F Source: [place] SUMMARY 11:50 PM [facility] REPOSITORY [facility] Medical Records Department [address] [place] [address] Emergency Department Summary 06/22/18 1857 MR#: [id number] Acct: [id number] Name: ASAEL HUNTER Rep #: [id number] : 1980 37 From: Bola Gong MD PCP: Michele Silverman MD Status: DEP ER - ER Visit Summary Date of Service: 06/22/18 Chief Complaint: Out of medication History of Present Illness: The patient is a 37 M who is requesting a refill of his alprazolam and Ambien. He ran out 3 days ago. He missed his doctor's appointment last week because he had difficulty scheduling the appointment. He says he was due for a refill on Wednesday, but that they would not refill his medication because he missed his appointment. He has a appointment for this Wednesday scheduled. He feels anxious and has trouble sleeping. He feels like he is having a panic attack. No seizures. No other new issues. Physical Examination: Patient is alert and oriented. Pacing about the room. Anxious. Denies suicidal or homicidal thoughts. Heart regular. Lungs clear. Skin unremarkable. Test Results: None performed Emergency Department Course and Treatment: I did check the patient's OARRS report. He was on alprazolam 1 mg twice a day and he was scheduled to run out yesterday. He was on Ambien 10 mg once a day and was scheduled to run out yesterday. Will refill a 3-day supply of these medications and the patient may follow-up with his physician on Wednesday. Treatment Plan: As above Disposition: Discharge Impression: 1. Anxiety This note was generated with [employer] dictation software. It may contain incorrect words, spelling, and punctuation that were not noted in review of the chart prior to signing ED Disposition - Plan for ED Patient: Chief Complaint: Anxiety Referrals: Blessing Martino MD [Primary Care Provider] - What to do if you have Problems For any increased pain, shortness of breath, bleeding, nausea or vomiting, chest pain, or any unexpected problems, contact your Primary Care Provider. Call [facility] ([phone]) or report to the closest Emergency Room. Call 911 if necessary. 06/22/18 7010 <Electronically signed by Bola Gong MD> Date Bola Gong MD Cosigner Signature (If Indicated): Date CC: Michele Silverman MD DISCHARGE INSTRUCTION Observed: 06/22/2018 Status: F Source: JOSE E 11:50 PM [facility] [place] REPOSITORY [facility] Medical Records Department [address] [place] [address] Discharge Instruction 06/22/18 1900 MR#: [id number] Acct: [id number] Name: ASAEL HUNTER Rep #: [id number] : 1980 37 From: Bola Gong MD PCP: Michele Silverman MD Status: DEP ER ED Disposition - Plan for ED Patient: Chief Complaint: Anxiety Instructions: ED Panic Attack Prescriptions: Zolpidem Tartrate [Ambien] 10 mg PO QHS 3 Days #3 tab ALPRAZolam [Xanax] 1 mg PO BID 3 Days #6 tab Referrals: Blessing Martino MD [Primary Care Provider] - What to do if you have Problems For any increased pain, shortness of breath, bleeding, nausea or vomiting, chest pain, or any unexpected problems, contact your Primary Care Provider. Call [facility] ([phone]) or report to the closest Emergency Room. Call 911 if necessary. 06/22/18 7280 <Electronically signed by Bola Gong MD> Date Bola Gong MD Cosigner Signature (If Indicated): Date CC: Michele Silverman MD CNPN Observed: 06/22/2018 Status: COMPLETED Source: [place] 12:00 AM [facility] REPOSITORY Telephone (FPWADS) ASAEL HUNTER ([id number]) 1980 M Date Time Provider Department 06/22/18 MARION SILVERMAN (HISTORICAL)AMY During your visit today, we recorded the following information about you: Meredith Otoole Psr 06/22/2018 11:35 AM Signed Per 2 previous encounters patient is calling back asking for script to be written Both encounter messages were given to him Griselda Santana 06/22/2018 11:46 AM Signed Noted Abigail Nixon RN 06/22/2018 1:21 PM Signed Patient calling again asking for alprazolam medication refill. He states he is out and was told if he scheduled an appointment he could get a refill. He has appointment on 06-[address] Silverman and is asking if he could get the refill now. He was advised Dr. Silverman wanted to see him first, but patient states he was told by nurse that he could get a refill if he schedules an appointment. He reports talking to a nurse yesterday and last Wednesday who told him he could get a refill. He is aware Dr. Silverman would need to approve this first. Please advise. Allergies As of Date: 06/22/2018 Noted Allergy Reaction SEASONAL ALLERGIES 09/01/2016 14 - Other: See Comments Comments: Itchy and watery eyes, cough, sneeze Date Reviewed: 03/24/2018 Reviewed by: Nyla Hooks Ma - Fully Assessed Reason for Visit: Medication [Other] Prescriptions as of 06/22/2018 Sig: TADALAFIL 5 MG TABLET take 1 tablet by mouth once d* GABAPENTIN 300 MG CAPSULE take 1 capsule by mouth three* METOPROLOL SUCCINATE ER 50 MG* take 1 tablet by mouth once d* OXYBUTYNIN CHLORIDE 5 MG TABL* take 1 tablet by mouth three * ZOLPIDEM 10 MG TABLET Take 1 tablet by mouth at bed* TESTOSTERONE CYPIONATE 200 MG* Inject 1 mL intramuscularly o* TAMSULOSIN 0.4 MG CAPSULE Take 1 capsule by mouth daily* DULOXETINE 60 MG CAPSULE,JUDY* Take 1 capsule by mouth once * CYCLOBENZAPRINE 10 MG TABLET Take 1 tablet by mouth once d* ALPRAZOLAM 2 MG TABLET Take 1 tablet by mouth twice * PAROXETINE 30 MG TABLET Take 1 tablet by mouth twice * RABEPRAZOLE 20 MG TABLET,JUDY* Take 1 tablet by mouth once d* HYDROCORTISONE-PRAMOXINE 1 %-* 1 application by RECTAL route* ALPRAZOLAM 1 MG TABLET Take 1 tablet by mouth twice * LATEX GLOVES Use 1 pair 4 times a day as n* IBUPROFEN 600 MG TABLET Take 1 tablet by mouth every * ALCOHOL SWABS Use as needed to clean up exc* LIDOCAINE 5 % TOPICAL OINTMENT Apply 1 application to affect* SYRINGE WITH NEEDLE 3 ML 22 X* Inject 1 Each intramuscularly* LORATADINE 10 MG TABLET Take 1 tablet by mouth once d* AMITRIPTYLINE 10 MG TABLET Take 1 tablet by mouth three * EMPTY CONTAINER use as directed CANE Requires cane for ambulation,* Problem List As Of Date 06/22/2018 Noted Resolved PITUITARY DISORDER NOS [E23.7] INVALID FOR* DYSMETABOLIC SYNDROME X [E88.81] INVALID FOR* Fibromyalgia [M79.7] INVALID FOR* Depression [F32.9] INVALID FOR* Chronic anxiety [F41.9] INVALID FOR* Insomnia [G47.00] INVALID FOR* Degenerative disc disease, lumbar [M51.36] INVALID FOR* More... Hypogonadism in male [E29.1] INVALID FOR* Arthritis [M19.90] INVALID FOR* BPH (benign prostatic hyperplasia) [N40.0] INVALID FOR* Bilateral low back pain with sciatica [M54.40] INVALID FOR* Midline thoracic back pain [M54.6] INVALID FOR* Fibromyalgia syndrome [M79.7] INVALID FOR* Essential hypertension [I10] INVALID FOR* Encounter Status:Closed by GRISELDA SANTANA on 06/22/18 EVELYN Observed: 06/21/2018 Status: COMPLETED Source: [place] 12:00 AM [facility] REPOSITORY Telephone (FPWADS) SUZETTEASAEL ([id number]) 1980 M Date Time Provider Department 06/21/18 MARION SILVERMAN (HISTORICAL)AMY During your visit today, we recorded the following information about you: Meredith Xiang Psr 06/21/2018 3:44 PM Signed Patient advised of Dr previous encounter Message re can't prescribe Medication until he keeps his apt on 06/24 Catrachita Weinbergjames Psr 06/21/2018 4:16 PM Signed Patient calling back today and is very upset and asking what he needs to do regarding the medication xanax. Patient states yesterday was his last day and he needs the medication for the panic attack. Patient also states that if the medication is filled late then the insurance will not allow the medication for next month. Please call patient and explain to him when he can get his medication. Shannan Norris Ma 06/21/2018 4:48 PM Signed Patient is questioning if he can have medication filled today Shannan Argueta, NUCLEAR SUPERVISING OPERATOR.BOX MAKER 06/21/2018 5:20 PM Signed Will allow PCP to address in the morning but he has already made it clear that patient needs to be seen as scheduled prior to obtaining refill. Marion Silverman MD 06/23/2018 10:34 AM Signed He can get the prescription filled at his appointment tomorrow. Marion Silverman MD Allergies As of Date: 06/21/2018 Noted Allergy Reaction SEASONAL ALLERGIES 09/01/2016 14 - Other: See Comments Comments: Itchy and watery eyes, cough, sneeze Date Reviewed: 03/24/2018 Reviewed by: Nyla Hooks Ma - Fully Assessed Reason for Visit: Medication Request [138] Prescriptions as of 06/21/2018 Sig: TADALAFIL 5 MG TABLET take 1 tablet by mouth once d* GABAPENTIN 300 MG CAPSULE take 1 capsule by mouth three* METOPROLOL SUCCINATE ER 50 MG* take 1 tablet by mouth once d* OXYBUTYNIN CHLORIDE 5 MG TABL* take 1 tablet by mouth three * ZOLPIDEM 10 MG TABLET Take 1 tablet by mouth at bed* TESTOSTERONE CYPIONATE 200 MG* Inject 1 mL intramuscularly o* TAMSULOSIN 0.4 MG CAPSULE Take 1 capsule by mouth daily* DULOXETINE 60 MG CAPSULE,JUDY* Take 1 capsule by mouth once * CYCLOBENZAPRINE 10 MG TABLET Take 1 tablet by mouth once d* ALPRAZOLAM 2 MG TABLET Take 1 tablet by mouth twice * PAROXETINE 30 MG TABLET Take 1 tablet by mouth twice * RABEPRAZOLE 20 MG TABLET,JUDY* Take 1 tablet by mouth once d* HYDROCORTISONE-PRAMOXINE 1 %-* 1 application by RECTAL route* ALPRAZOLAM 1 MG TABLET Take 1 tablet by mouth twice * LATEX GLOVES Use 1 pair 4 times a day as n* IBUPROFEN 600 MG TABLET Take 1 tablet by mouth every * ALCOHOL SWABS Use as needed to clean up exc* LIDOCAINE 5 % TOPICAL OINTMENT Apply 1 application to affect* SYRINGE WITH NEEDLE 3 ML 22 X* Inject 1 Each intramuscularly* LORATADINE 10 MG TABLET Take 1 tablet by mouth once d* AMITRIPTYLINE 10 MG TABLET Take 1 tablet by mouth three * EMPTY CONTAINER use as directed CANE Requires cane for ambulation,* Problem List As Of Date 06/21/2018 Noted Resolved PITUITARY DISORDER NOS [E23.7] INVALID FOR* DYSMETABOLIC SYNDROME X [E88.81] INVALID FOR* Fibromyalgia [M79.7] INVALID FOR* Depression [F32.9] INVALID FOR* Chronic anxiety [F41.9] INVALID FOR* Insomnia [G47.00] INVALID FOR* Degenerative disc disease, lumbar [M51.36] INVALID FOR* More... Hypogonadism in male [E29.1] INVALID FOR* Arthritis [M19.90] INVALID FOR* BPH (benign prostatic hyperplasia) [N40.0] INVALID FOR* Bilateral low back pain with sciatica [M54.40] INVALID FOR* Midline thoracic back pain [M54.6] INVALID FOR* Fibromyalgia syndrome [M79.7] INVALID FOR* Essential hypertension [I10] INVALID FOR* Encounter Status:Closed by BENIGNO CLEVELAND MA on 06/21/18 OBSOLETE Observed: 06/20/2018 Status: COMPLETED Source: [place] 12:00 AM [facility] REPOSITORY Refill (FAMDNA) ASAEL HUNTER ([id number]) 1980 M Date Time Provider Department 06/20/18 MARION SILVERMAN During your visit today, we recorded the following information about you: Aziza Reyna Psr 06/20/2018 12:58 PM Signed Patient has been identified by name and date of : Yes Pending Prescriptions Disp Refills ALPRAZOLAM 1 MG TABLET 60 tablet 2 Sig: Take 1 tablet by mouth twice daily for 90 days. Along with the 2 mg tablet LESLI Class: C-IV ALEXANDRO: No ALPRAZOLAM 2 MG TABLET 60 tablet 2 Sig: Take 1 tablet by mouth twice daily as needed for up to 90 days. LESLI Class: C-IV ALEXANDRO: No ZOLPIDEM 10 MG TABLET 30 tablet 2 Sig: Take 1 tablet by mouth at bedtime as needed for up to 30 days. LESLI Class: C-IV ALEXANDRO: No RX INSTRUCTIONS: Patient aware RX will be sent to pharmacy. No need to notify patient. Aziza Reyna Psr Lorena Covington RN 06/20/2018 4:29 PM Signed Patient calling to see if filled yet because he is out and about. Its hard for him to be out and about so he was just checking status. Not out of medication though. Informed its early for last picker. Marion Silverman MD 06/21/2018 7:47 AM Signed Patient's request for medication has been refused. See reason and notify patient. Refused Prescriptions Disp Refills ALPRAZolam (XANAX) 1 mg tablet 60 tablet 2 Sig: Take 1 tablet by mouth twice daily for 90 days. Along with the 2 mg tablet LESLI Class: C-IV ALEXANDRO: No Refused By: MICHELE SILVERMAN MD Reason for Refusal: Patient needs appointment ALPRAZolam 2 mg tablet 60 tablet 2 Sig: Take 1 tablet by mouth twice daily as needed for up to 90 days. LESLI Class: C-IV ALEXANDRO: No Refused By: MICHELE SILVERMAN MD Reason for Refusal: Patient needs appointment zolpidem (AMBIEN) 10 mg tab 30 tablet 2 Sig: Take 1 tablet by mouth at bedtime as needed for up to 30 days. LESLI Class: C-IV ALEXANDRO: No Refused By: MICHELE SILVERMAN MD Reason for Refusal: Patient needs appointment He will need to keep his appointment on the as he has been advised repeatedly. Marion Silverman MD Tamika Gustabo Parts Expediter Psr 06/21/2018 9:30 AM Signed Patient already has appointment scheduled for 06/24 Allergies As of Date: 06/20/2018 Noted Allergy Reaction SEASONAL ALLERGIES 09/01/2016 14 - Other: See Comments Comments: Itchy and watery eyes, cough, sneeze Date Reviewed: 03/24/2018 Reviewed by: Nyla Hooks Ma - Fully Assessed Reason for Visit: Refill Request [94] Reason For Visit History Recorded Visit Diagnoses:Anxiety [F41.9] Insomnia, unspecified type [G47.00] Prescriptions as of 06/20/2018 Sig: TADALAFIL 5 MG TABLET take 1 tablet by mouth once d* GABAPENTIN 300 MG CAPSULE take 1 capsule by mouth three* METOPROLOL SUCCINATE ER 50 MG* take 1 tablet by mouth once d* OXYBUTYNIN CHLORIDE 5 MG TABL* take 1 tablet by mouth three * ZOLPIDEM 10 MG TABLET Take 1 tablet by mouth at bed* TESTOSTERONE CYPIONATE 200 MG* Inject 1 mL intramuscularly o* TAMSULOSIN 0.4 MG CAPSULE Take 1 capsule by mouth daily* DULOXETINE 60 MG CAPSULE,JUDY* Take 1 capsule by mouth once * CYCLOBENZAPRINE 10 MG TABLET Take 1 tablet by mouth once d* ALPRAZOLAM 2 MG TABLET Take 1 tablet by mouth twice * PAROXETINE 30 MG TABLET Take 1 tablet by mouth twice * RABEPRAZOLE 20 MG TABLET,JUDY* Take 1 tablet by mouth once d* HYDROCORTISONE-PRAMOXINE 1 %-* 1 application by RECTAL route* ALPRAZOLAM 1 MG TABLET Take 1 tablet by mouth twice * LATEX GLOVES Use 1 pair 4 times a day as n* IBUPROFEN 600 MG TABLET Take 1 tablet by mouth every * ALCOHOL SWABS Use as needed to clean up exc* LIDOCAINE 5 % TOPICAL OINTMENT Apply 1 application to affect* SYRINGE WITH NEEDLE 3 ML 22 X* Inject 1 Each intramuscularly* LORATADINE 10 MG TABLET Take 1 tablet by mouth once d* AMITRIPTYLINE 10 MG TABLET Take 1 tablet by mouth three * EMPTY CONTAINER use as directed CANE Requires cane for ambulation,* Problem List As Of Date 06/20/2018 Noted Resolved PITUITARY DISORDER NOS [E23.7] INVALID FOR* DYSMETABOLIC SYNDROME X [E88.81] INVALID FOR* Fibromyalgia [M79.7] INVALID FOR* Depression [F32.9] INVALID FOR* Chronic anxiety [F41.9] INVALID FOR* Insomnia [G47.00] INVALID FOR* Degenerative disc disease, lumbar [M51.36] INVALID FOR* More... Hypogonadism in male [E29.1] INVALID FOR* Arthritis [M19.90] INVALID FOR* BPH (benign prostatic hyperplasia) [N40.0] INVALID FOR* Bilateral low back pain with sciatica [M54.40] INVALID FOR* Midline thoracic back pain [M54.6] INVALID FOR* Fibromyalgia syndrome [M79.7] INVALID FOR* Essential hypertension [I10] INVALID FOR* Encounter Status:Closed by SHANNAN NORRIS MA on 06/21/18 OBSOLETE Observed: 06/17/2018 Status: COMPLETED Source: [place] 12:00 AM [facility] REPOSITORY Refill (FPWADS) ASAEL HUNTER ([id number]) 1980 M Date Time Provider Department 06/17/18 MARION SILVERMAN During your visit today, we recorded the following information about you: Kelly Lambert Ma 06/17/2018 2:48 PM Signed Pharmacy requesting refills as follows: Patient has appt on the Jun. Pending Prescriptions Disp Refills TADALAFIL 5 MG TABLET 30 tablet 0 Sig: take 1 tablet by mouth once daily ALEXANDRO: Yes GABAPENTIN 300 MG CAPSULE 90 capsule 0 Sig: take 1 capsule by mouth three times a day ALEXANDRO: Yes METOPROLOL SUCCINATE ER 50 MG TABLET,EXTENDED RELEASE 24 HR 30 tablet 0 Sig: take 1 tablet by mouth once daily ALEXANDRO: Yes OXYBUTYNIN CHLORIDE 5 MG TABLET 90 tablet 0 Sig: take 1 tablet by mouth three times a day ALEXANDRO: Yes Please review and advise. Kelly Silverman MD 06/17/2018 5:05 PM Signed The following approved medication requests have been transmitted electronically. He is due for f/u appt next week if he will be needing a refill on the Xanax. He needs to keep that appt. Signed Prescriptions Disp Refills Tadalafil 5 mg tablet 30 tablet 0 Sig: take 1 tablet by mouth once daily ALEXANDRO: No Authorizing Provider: MARION SILVERMAN gabapentin (NEURONTIN) 300 mg capsule 90 capsule 0 Sig: take 1 capsule by mouth three times a day ALEXANDRO: No Authorizing Provider: MARION SILVERMAN metoprolol succinate ER (TOPROL XL) 50 mg 24 hr tablet 30 tablet 0 Sig: take 1 tablet by mouth once daily ALEXANDRO: No Authorizing Provider: MARION SILVERMAN oxybutynin (DITROPAN) 5 mg tablet 90 tablet 0 Sig: take 1 tablet by mouth three times a day ALEXANDRO: No Authorizing Provider: MARION SILVERMAN MD Maria Gibson Ma 06/17/2018 5:13 PM Signed The following approved medication requests have been transmitted electronically. Signed Prescriptions Disp Refills Tadalafil 5 mg tablet 30 tablet 0 Sig: take 1 tablet by mouth once daily ALEXANDRO: No Authorizing Provider: MARION SILVERMAN gabapentin (NEURONTIN) 300 mg capsule 90 capsule 0 Sig: take 1 capsule by mouth three times a day ALEXANDRO: No Authorizing Provider: MARION SILVERMAN metoprolol succinate ER (TOPROL XL) 50 mg 24 hr tablet 30 tablet 0 Sig: take 1 tablet by mouth once daily ALEXANDRO: No Authorizing Provider: MARION SILVERMAN oxybutynin (DITROPAN) 5 mg tablet 90 tablet 0 Sig: take 1 tablet by mouth three times a day ALEXNADRO: No Authorizing Provider: MARION SILVERMAN Patient informed of message from provider Aparna Herrera Ma Allergies As of Date: 06/17/2018 Noted Allergy Reaction SEASONAL ALLERGIES 09/01/2016 14 - Other: See Comments Comments: Itchy and watery eyes, cough, sneeze Date Reviewed: 03/24/2018 Reviewed by: Nyla Hooks Ma - Fully Assessed Reason for Visit: Refill Request [94] Primary Visit Diagnosis:OAB (overactive bladder) [N32.81] Other Visit Diagnoses:Benign prostatic hyperplasia with lower urinary tract symptoms, symptom details unspecified [N40.1] Fibromyalgia syndrome [M79.7] Chronic bilateral low back pain with sciatica, sciatica laterality unspecified [M54.40, G89.29] Essential hypertension [I10] Order(s):Tadalafil 5 mg tablettake 1 tablet by mouth once dailyDisp: 30 tabletRfl: 0 gabapentin (NEURONTIN) 300 mg capsuletake 1 capsule by mouth three times a dayDisp: 90 capsuleRfl: 0 metoprolol succinate ER (TOPROL XL) 50 mg 24 hr tablettake 1 tablet by mouth once dailyDisp: 30 tabletRfl: 0 oxybutynin (DITROPAN) 5 mg tablettake 1 tablet by mouth three times a dayDisp: 90 tabletRfl: 0 Prescriptions as of 06/17/2018 Sig: TADALAFIL 5 MG TABLET take 1 tablet by mouth once d* GABAPENTIN 300 MG CAPSULE take 1 capsule by mouth three* METOPROLOL SUCCINATE ER 50 MG* take 1 tablet by mouth once d* OXYBUTYNIN CHLORIDE 5 MG TABL* take 1 tablet by mouth three * ZOLPIDEM 10 MG TABLET Take 1 tablet by mouth at bed* TESTOSTERONE CYPIONATE 200 MG* Inject 1 mL intramuscularly o* TAMSULOSIN 0.4 MG CAPSULE Take 1 capsule by mouth daily* DULOXETINE 60 MG CAPSULE,JUDY* Take 1 capsule by mouth once * CYCLOBENZAPRINE 10 MG TABLET Take 1 tablet by mouth once d* ALPRAZOLAM 2 MG TABLET Take 1 tablet by mouth twice * PAROXETINE 30 MG TABLET Take 1 tablet by mouth twice * RABEPRAZOLE 20 MG TABLET,JUDY* Take 1 tablet by mouth once d* HYDROCORTISONE-PRAMOXINE 1 %-* 1 application by RECTAL route* ALPRAZOLAM 1 MG TABLET Take 1 tablet by mouth twice * LATEX GLOVES Use 1 pair 4 times a day as n* IBUPROFEN 600 MG TABLET Take 1 tablet by mouth every * ALCOHOL SWABS Use as needed to clean up exc* LIDOCAINE 5 % TOPICAL OINTMENT Apply 1 application to affect* SYRINGE WITH NEEDLE 3 ML 22 X* Inject 1 Each intramuscularly* LORATADINE 10 MG TABLET Take 1 tablet by mouth once d* AMITRIPTYLINE 10 MG TABLET Take 1 tablet by mouth three * EMPTY CONTAINER use as directed CANE Requires cane for ambulation,* Problem List As Of Date 06/17/2018 Noted Resolved PITUITARY DISORDER NOS [E23.7] INVALID FOR* DYSMETABOLIC SYNDROME X [E88.81] INVALID FOR* Fibromyalgia [M79.7] INVALID FOR* Depression [F32.9] INVALID FOR* Chronic anxiety [F41.9] INVALID FOR* Insomnia [G47.00] INVALID FOR* Degenerative disc disease, lumbar [M51.36] INVALID FOR* More... Hypogonadism in male [E29.1] INVALID FOR* Arthritis [M19.90] INVALID FOR* BPH (benign prostatic hyperplasia) [N40.0] INVALID FOR* Bilateral low back pain with sciatica [M54.40] INVALID FOR* Midline thoracic back pain [M54.6] INVALID FOR* Fibromyalgia syndrome [M79.7] INVALID FOR* Essential hypertension [I10] INVALID FOR* Prescriptions ordered this encounter Disp Refills Start End TADALAFIL 5 MG TABLET 30 t* 0 06/17/2018 Route: ORAL Sig: take 1 tablet by mouth once daily GABAPENTIN 300 MG CAPSULE 90 c* 0 06/17/2018 07/17/2018 Sig: take 1 capsule by mouth three times a day METOPROLOL SUCCINATE ER 50 MG TABLET* 30 t* 0 06/17/2018 Route: ORAL Sig: take 1 tablet by mouth once daily OXYBUTYNIN CHLORIDE 5 MG TABLET 90 t* 0 06/17/2018 Sig: take 1 tablet by mouth three times a day Medications Discontinued During This Encounter Tadalafil (CIALIS) 5 mg tablet 30 t* 5 12/03/2017 06/17/2018 Route: ORAL Sig: Take 1 tablet by mouth once daily. Disc: Reason for discontinue is not on file. gabapentin (NEURONTIN) 300 mg capsule 90 c* 2 03/24/2018 06/17/2018 Route: ORAL Sig: Take 1 capsule by mouth three times daily for 90 days. Disc: Reason for discontinue is not on file. metoprolol succinate ER (TOPROL XL) * 30 t* 2 03/24/2018 06/17/2018 Route: ORAL Sig: Take 1 tablet by mouth once daily. Disc: Reason for discontinue is not on file. oxybutynin (DITROPAN) 5 mg tablet 90 t* 2 03/24/2018 06/17/2018 Route: ORAL Sig: Take 1 tablet by mouth three times daily. Disc: Reason for discontinue is not on file. Encounter Status:Closed by APARNA HERRERA MA on 06/17/18 TOXASSURE COMPR Collected: 05/17/2018 Status: F Source: [facility] 3:21 PM [facility] REPOSITORY TYPE CODE TESTS RESULT OUT OF RANGE REFERENCE UNITS LAB L600.28698 () Normal TOXASSURE COMPR FINAL Result Comment: TOXASSURE COMP DRUG ANALYSIS,UR 6-Acetylmorphine,ToxAssure Add CREATININE,URINE Test Result Flag Units Drug Present Alcohol, Ethyl 0.037 g/dL Sources of ethyl alcohol include alcoholic beverages or as a fermentation product of glucose; glucose was not detected in this specimen. Ethyl alcohol result should be interpreted in the context of all available clinical and behavioral information. Alprazolam 21 ng/mg creat Alpha-hydroxyalprazolam 45 ng/mg creat Source of alprazolam is a scheduled prescription medication. Alpha-hydroxyalprazolam is an expected metabolite of alprazolam. Oxycodone 467 ng/mg creat Noroxycodone 741 ng/mg creat Sources of oxycodone include scheduled prescription medications. Noroxycodone is an expected metabolite of oxycodone. Gabapentin PRESENT Pregabalin PRESENT Cyclobenzaprine PRESENT Desmethylcyclobenzaprine PRESENT Desmethylcyclobenzaprine is an expected metabolite of cyclobenzaprine. Zolpidem PRESENT Zolpidem Acid PRESENT Zolpidem acid is an expected metabolite of zolpidem. Amitriptyline PRESENT Nortriptyline PRESENT Nortriptyline may be administered as a prescription drug; it is also an expected metabolite of amitriptyline. Duloxetine PRESENT Paroxetine PRESENT Ibuprofen PRESENT Diphenhydramine PRESENT Metoprolol PRESENT Test Result Flag Units Ref Range Creatinine 261 mg/dL >=20 Declared Medications: Medication list was not provided. For clinical consultation, please call . Performed By: #### L600.72659, L600.96556 #### [facility] [address] [place] [id number] 6-ACETYLMORPHIN Collected: 05/17/2018 Status: F Source: [place] 3:21 PM [facility] REPOSITORY TYPE CODE TESTS RESULT OUT OF RANGE REFERENCE UNITS LAB L600.92834 () 6-ILIANA Normal TOXASSURE NEGATIVE Performed By: #### L600.31044, L600.48845 #### [facility] [address] [place] [id number] PROGRESS Observed: 03/24/2018 Status: COMPLETED Source: [place] 4:46 PM [facility] REPOSITORY HNO ID: [id number] Author: Marion Silverman Service: (none) Author Type: Physician Type: Progress Notes Filed: 03/27/2018 4:33 PM Note Text: Chief Complaint Patient presents with: Follow Up: follow up, would like to talk about medication for sweating, (hyperhidrosis) HPI Asael Hunter is a 37 year old male who presents here today for follow-up of chronic anxiety/ chronic pain. . He reminds me of excessive sweating . Wonders about Robinul. He read about it online. He's been sweaty since age 9, Past medical history, appointments, medications, allergies reviewed. Previous Medical History PAST MEDICAL HISTORY Diagnosis Date - Anxiety - BPH (benign prostatic hypertrophy) - DDD (degenerative disc disease) - Depression - Hyperlipidemia 9 years old - Insomnia - Knee pain, bilateral - Lisfranc dislocation, right, sequela 11/2016 - Rheumatoid arthritis (HCC) Previous Surgical History PAST SURGICAL HISTORY Procedure Laterality Date - PAST SURGICAL HISTORY OF Thoraic sol - PAST SURGICAL HISTORY OF Epideryal - PAST SURGICAL HISTORY OF D. septum Family History FAMILY HISTORY Problem Relation Age of Onset - Cancer Father epileptic seizures - Hypertension Mother - Cancer Paternal Grandfather prostate,lung, tumors Patient Allergies ALLERGIES Allergen Reactions - Seasonal Allergies Other: See Comments Itchy and watery eyes, cough, sneeze Current Medications Current Outpatient Prescriptions on File Prior to Visit: ALPRAZolam (XANAX) 1 mg tablet TAKE 1 TABLET BY MOUTH ONCE DAILY IN ADDITION TO THE 2 MG TABLET ALPRAZolam 2 mg tablet TAKE 1 TABLET BY MOUTH TWICE DAILY NEEDED zolpidem (AMBIEN) 10 mg tab TAKE 1 TABLET BY MOUTH AT BEDTIME NEEDED FOR INSOMNIA metoprolol succinate ER (TOPROL XL) 50 mg 24 hr tablet Take 1 tablet by mouth once daily. Latex Gloves (LATEX GLOVES, LARGE) misc Use 1 pair 4 times a day as needed for applying ointment. ibuprofen (MOTRIN) 600 mg tablet Take 1 tablet by mouth every 6 hours as needed. alcohol swabs (ALCOHOL WIPES) padm Use as needed to clean up excess topical ointment. cyclobenzaprine (FLEXERIL) 10 mg tablet Take 1 tablet by mouth once daily. lidocaine (XYLOCAINE) 5 % ointment Apply 1 application to affected area three times daily as needed. RABEprazole (ACIPHEX) 20 mg tablet Take 1 tablet by mouth once daily. tamsulosin ER (FLOMAX) 0.4 mg cp24 Take 1 capsule by mouth daily at bedtime. Tadalafil (CIALIS) 5 mg tablet Take 1 tablet by mouth once daily. Syringe with Needle, Disp, (BD LUER-HARI SYRINGE) 3 mL 22 x 1 1/2 syrg Inject 1 Each intramuscularly once each week. PARoxetine (PAXIL) 30 mg tablet Take 1 tablet by mouth twice daily as needed. loratadine (CLARITIN) 10 mg tablet Take 1 tablet by mouth once daily. amitriptyline (ELAVIL) 10 mg tablet Take 1 tablet by mouth three times daily. DULoxetine (CYMBALTA) 60 mg capsule Take 1 capsule by mouth once daily. 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 gabapentin (NEURONTIN) 300 mg capsule Take 1 capsule by mouth three times daily for 90 days. No current facility-administered medications on file prior to visit. Social History Social History Marital status: Single Spouse name: Years of education: Number of children: Social History Main Topics Smoking status: Passive Smoke Exposure - Never Smoker Packs/day: 0.00 Years: 0.00 Smokeless tobacco: Never Used Alcohol use: No Drug use: No ROS: General: Feels well, no weight changes, fever, chills. Anxious. Sweating HEENT: No sinus congestion, earache, sore throat. Cardiac: No chest pain, palpitations, shortness of breath Resp: No cough, wheeze. GI: No reflux symptoms, food intolerance, bowel changes. : No urinary frequency, dysuria. MS: No pain or joint complaints. PHYSICAL EXAMINATION BP 138/95 Pulse 84 Temp 37 ?C (98.6 ?F) (Tympanic) Wt 112.5 kg (248 lb) SpO2 100% BMI 31.84 kg/m? General: Alert and oriented, no distress, pleasant and cooperative. Heart: Regular, normal S1 and S2, no murmurs, rubs, or gallops Lungs: Clear to auscultation bilaterally Abdomen: Benign Extremities: Feet/ankles without edema, posterior tibial pulses full and symmetrical Health Maintenance List DTAP,TDAP,TD(1 - Tdap) due on 2000 INFLUENZA(1) due on 02/05/2018 LIPID SCREEN due on 09/01/2021 Data reviewed PDMP website checked and validated. All prescriptions have been APPROPRIATELY filled. No suspicious activity was identified. 03/27/2018 by Marion Silverman MD Assessment/Plan: (G47.00) Insomnia, unspecified type Comment: chronic use of Ambien Plan: zolpidem (AMBIEN) 10 mg tab (E29.1) Hypogonadism in male Comment: Plan: testosterone cypionate (DEPO-TESTOSTERONE) 200 mg/mL injection Chronic use of the testosterone (F41.9) Anxiety Comment: Plan: ALPRAZolam 2 mg tablet, ALPRAZolam (XANAX) 1 mg tablet, DISCONTINUED: ALPRAZolam (XANAX) 1 mg tablet Signed Prescriptions Disp Refills zolpidem (AMBIEN) 10 mg tab 30 tablet 2 Sig: Take 1 tablet by mouth at bedtime as needed for up to 30 days. LESLI Class: C-IV ALEXANDRO: No testosterone cypionate (DEPO-TESTOSTERONE) 200 mg/mL injection 10 mL 1 Sig: Inject 1 mL intramuscularly once each week for 90 days. LESLI Class: C-III ALEXANDRO: No tamsulosin ER (FLOMAX) 0.4 mg cap 90 capsule 1 Sig: Take 1 capsule by mouth daily at bedtime. ALEXANDRO: No metoprolol succinate ER (TOPROL XL) 50 mg 24 hr tablet 30 tablet 2 Sig: Take 1 tablet by mouth once daily. ALEXANDRO: No DULoxetine (CYMBALTA) 60 mg capsule 30 capsule 5 Sig: Take 1 capsule by mouth once daily. ALEXANDRO: No gabapentin (NEURONTIN) 300 mg capsule 90 capsule 2 Sig: Take 1 capsule by mouth three times daily for 90 days. ALEXANDRO: No cyclobenzaprine (FLEXERIL) 10 mg tablet 90 tablet 0 Sig: Take 1 tablet by mouth once daily. ALEXANDRO: No ALPRAZolam 2 mg tablet 60 tablet 2 Sig: Take 1 tablet by mouth twice daily as needed for up to 90 days. LESLI Class: C-IV ALEXANDRO: No PARoxetine (PAXIL) 30 mg tablet 60 tablet 2 Sig: Take 1 tablet by mouth twice daily as needed. ALEXANDRO: No RABEprazole (ACIPHEX) 20 mg tablet 30 tablet 11 Sig: Take 1 tablet by mouth once daily. ALEXANDRO: No oxybutynin (DITROPAN) 5 mg tablet 90 tablet 2 Sig: Take 1 tablet by mouth three times daily. Pramoxine-Hydrocortisone (ANALPRAM-HC) 1-1 % rectal cream 30 g 2 Si application by RECTAL route twice daily. ALPRAZolam (XANAX) 1 mg tablet 60 tablet 2 Sig: Take 1 tablet by mouth twice daily for 90 days. Along with the 2 mg tablet LESLI Class: C-IV ALEXANDRO: No RTO: 3 mos Marion Silverman MD CNOV Observed: 03/24/2018 Status: COMPLETED Source: [place] 4:40 PM [facility] REPOSITORY Office Visit (WADS) SUZETTEASAEL Lincoln ([id number]) 1980 M Date Time Provider Department 03/24/18 4:40 PM MARION SILVERMAN MIGDALIA During your visit today, we recorded the following information about you: Temperature Pulse Blood pressure Weight 98.6 degrees 84/minute 138/95 112.5 kg Marion Silverman MD 03/27/2018 4:33 PM Signed Chief Complaint Patient presents with: Follow Up: follow up, would like to talk about medication for sweating, (hyperhidrosis) LANDON Asael Suzette is a 37 year old male who presents here today for follow-up of chronic anxiety/ chronic pain. . He reminds me of excessive sweating . Wonders about Robinul. He read about it online. He's been sweaty since age 9, Past medical history, appointments, medications, allergies reviewed. Previous Medical History PAST MEDICAL HISTORY Diagnosis Date - Anxiety - BPH (benign prostatic hypertrophy) - DDD (degenerative disc disease) - Depression - Hyperlipidemia 9 years old - Insomnia - Knee pain, bilateral - Lisfranc dislocation, right, sequela 11/2016 - Rheumatoid arthritis (HCC) Previous Surgical History PAST SURGICAL HISTORY Procedure Laterality Date - PAST SURGICAL HISTORY OF Thoraic sol - PAST SURGICAL HISTORY OF Epideryal - PAST SURGICAL HISTORY OF D. septum Family History FAMILY HISTORY Problem Relation Age of Onset - Cancer Father epileptic seizures - Hypertension Mother - Cancer Paternal Grandfather prostate,lung, tumors Patient Allergies ALLERGIES Allergen Reactions - Seasonal Allergies Other: See Comments Itchy and watery eyes, cough, sneeze Current Medications Current Outpatient Prescriptions on File Prior to Visit: ALPRAZolam (XANAX) 1 mg tablet TAKE 1 TABLET BY MOUTH ONCE DAILY IN ADDITION TO THE 2 MG TABLET ALPRAZolam 2 mg tablet TAKE 1 TABLET BY MOUTH TWICE DAILY NEEDED zolpidem (AMBIEN) 10 mg tab TAKE 1 TABLET BY MOUTH AT BEDTIME NEEDED FOR INSOMNIA metoprolol succinate ER (TOPROL XL) 50 mg 24 hr tablet Take 1 tablet by mouth once daily. Latex Gloves (LATEX GLOVES, LARGE) misc Use 1 pair 4 times a day as needed for applying ointment. ibuprofen (MOTRIN) 600 mg tablet Take 1 tablet by mouth every 6 hours as needed. alcohol swabs (ALCOHOL WIPES) padm Use as needed to clean up excess topical ointment. cyclobenzaprine (FLEXERIL) 10 mg tablet Take 1 tablet by mouth once daily. lidocaine (XYLOCAINE) 5 % ointment Apply 1 application to affected area three times daily as needed. RABEprazole (ACIPHEX) 20 mg tablet Take 1 tablet by mouth once daily. tamsulosin ER (FLOMAX) 0.4 mg cp24 Take 1 capsule by mouth daily at bedtime. Tadalafil (CIALIS) 5 mg tablet Take 1 tablet by mouth once daily. Syringe with Needle, Disp, (BD LUER-HARI SYRINGE) 3 mL 22 x 1 1/2 syrg Inject 1 Each intramuscularly once each week. PARoxetine (PAXIL) 30 mg tablet Take 1 tablet by mouth twice daily as needed. loratadine (CLARITIN) 10 mg tablet Take 1 tablet by mouth once daily. amitriptyline (ELAVIL) 10 mg tablet Take 1 tablet by mouth three times daily. DULoxetine (CYMBALTA) 60 mg capsule Take 1 capsule by mouth once daily. 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 gabapentin (NEURONTIN) 300 mg capsule Take 1 capsule by mouth three times daily for 90 days. No current facility-administered medications on file prior to visit. Social History Social History Marital status: Single Spouse name: Years of education: Number of children: Social History Main Topics Smoking status: Passive Smoke Exposure - Never Smoker Packs/day: 0.00 Years: 0.00 Smokeless tobacco: Never Used Alcohol use: No Drug use: No ROS: General: Feels well, no weight changes, fever, chills. Anxious. Sweating HEENT: No sinus congestion, earache, sore throat. Cardiac: No chest pain, palpitations, shortness of breath Resp: No cough, wheeze. GI: No reflux symptoms, food intolerance, bowel changes. : No urinary frequency, dysuria. MS: No pain or joint complaints. PHYSICAL EXAMINATION BP 138/95 Pulse 84 Temp 37 ?C (98.6 ?F) (Tympanic) Wt 112.5 kg (248 lb) SpO2 100% BMI 31.84 kg/m? General: Alert and oriented, no distress, pleasant and cooperative. Heart: Regular, normal S1 and S2, no murmurs, rubs, or gallops Lungs: Clear to auscultation bilaterally Abdomen: Benign Extremities: Feet/ankles without edema, posterior tibial pulses full and symmetrical Health Maintenance List DTAP,TDAP,TD(1 - Tdap) due on 2000 INFLUENZA(1) due on 02/05/2018 LIPID SCREEN due on 09/01/2021 Data reviewed PDMP website checked and validated. All prescriptions have been APPROPRIATELY filled. No suspicious activity was identified. 03/27/2018 by Marion Silverman MD Assessment/Plan: (G47.00) Insomnia, unspecified type Comment: chronic use of Ambien Plan: zolpidem (AMBIEN) 10 mg tab (E29.1) Hypogonadism in male Comment: Plan: testosterone cypionate (DEPO-TESTOSTERONE) 200 mg/mL injection Chronic use of the testosterone (F41.9) Anxiety Comment: Plan: ALPRAZolam 2 mg tablet, ALPRAZolam (XANAX) 1 mg tablet, DISCONTINUED: ALPRAZolam (XANAX) 1 mg tablet Signed Prescriptions Disp Refills zolpidem (AMBIEN) 10 mg tab 30 tablet 2 Sig: Take 1 tablet by mouth at bedtime as needed for up to 30 days. LESLI Class: C-IV ALEXANDRO: No testosterone cypionate (DEPO-TESTOSTERONE) 200 mg/mL injection 10 mL 1 Sig: Inject 1 mL intramuscularly once each week for 90 days. LESLI Class: C-III ALEXANDRO: No tamsulosin ER (FLOMAX) 0.4 mg cap 90 capsule 1 Sig: Take 1 capsule by mouth daily at bedtime. ALEXANDRO: No metoprolol succinate ER (TOPROL XL) 50 mg 24 hr tablet 30 tablet 2 Sig: Take 1 tablet by mouth once daily. ALEXANDRO: No DULoxetine (CYMBALTA) 60 mg capsule 30 capsule 5 Sig: Take 1 capsule by mouth once daily. ALEXANDRO: No gabapentin (NEURONTIN) 300 mg capsule 90 capsule 2 Sig: Take 1 capsule by mouth three times daily for 90 days. ALEXANDRO: No cyclobenzaprine (FLEXERIL) 10 mg tablet 90 tablet 0 Sig: Take 1 tablet by mouth once daily. ALEXANDRO: No ALPRAZolam 2 mg tablet 60 tablet 2 Sig: Take 1 tablet by mouth twice daily as needed for up to 90 days. LESLI Class: C-IV ALEXANDRO: No PARoxetine (PAXIL) 30 mg tablet 60 tablet 2 Sig: Take 1 tablet by mouth twice daily as needed. ALEXANDRO: No RABEprazole (ACIPHEX) 20 mg tablet 30 tablet 11 Sig: Take 1 tablet by mouth once daily. ALEXANDRO: No oxybutynin (DITROPAN) 5 mg tablet 90 tablet 2 Sig: Take 1 tablet by mouth three times daily. Pramoxine-Hydrocortisone (ANALPRAM-HC) 1-1 % rectal cream 30 g 2 Si application by RECTAL route twice daily. ALPRAZolam (XANAX) 1 mg tablet 60 tablet 2 Sig: Take 1 tablet by mouth twice daily for 90 days. Along with the 2 mg tablet LESLI Class: C-IV ALEXANDRO: No RTO: 3 mos Marion Silverman MD Referring Provider: MARION SILVERMAN [[id number]] Allergies As of Date: 03/24/2018 Noted Allergy Reaction SEASONAL ALLERGIES 09/01/2016 14 - Other: See Comments Comments: Itchy and watery eyes, cough, sneeze Date Reviewed: 03/24/2018 Reviewed by: Nyla Hooks Ma - Fully Assessed Reason for Visit: Follow Up [171] Cmt: follow up, would like to talk about medication for sweating, (hyperhidrosis) Visit Diagnoses:Insomnia, unspecified type [G47.00] Hypogonadism in male [E29.1] Anxiety [F41.9] Order(s):zolpidem (AMBIEN) 10 mg tabTake 1 tablet by mouth at bedtime as needed for up to 30 days.Disp: 30 tabletRfl: 2 testosterone cypionate (DEPO-TESTOSTERONE) 200 mg/mL injectionInject 1 mL intramuscularly once each week for 90 days.Disp: 10 mLRfl: 1 tamsulosin ER (FLOMAX) 0.4 mg capTake 1 capsule by mouth daily at bedtime.Disp: 90 capsuleRfl: 1 metoprolol succinate ER (TOPROL XL) 50 mg 24 hr tabletTake 1 tablet by mouth once daily.Disp: 30 tabletRfl: 2 DULoxetine (CYMBALTA) 60 mg capsuleTake 1 capsule by mouth once daily.Disp: 30 capsuleRfl: 5 gabapentin (NEURONTIN) 300 mg capsuleTake 1 capsule by mouth three times daily for 90 days.Disp: 90 capsuleRfl: 2 cyclobenzaprine (FLEXERIL) 10 mg tabletTake 1 tablet by mouth once daily.Disp: 90 tabletRfl: 0 ALPRAZolam 2 mg tabletTake 1 tablet by mouth twice daily as needed for up to 90 days.Disp: 60 tabletRfl: 2 PARoxetine (PAXIL) 30 mg tabletTake 1 tablet by mouth twice daily as needed.Disp: 60 tabletRfl: 2 RABEprazole (ACIPHEX) 20 mg tabletTake 1 tablet by mouth once daily.Disp: 30 tabletRfl: 11 oxybutynin (DITROPAN) 5 mg tabletTake 1 tablet by mouth three times daily.Disp: 90 tabletRfl: 2 Pramoxine-Hydrocortisone (ANALPRAM-HC) 1-1 % rectal cream1 application by RECTAL route twice daily.Disp: 30 gRfl: 2 ALPRAZolam (XANAX) 1 mg tabletTake 1 tablet by mouth twice daily for 90 days. Along with the 2 mg tabletDisp: 60 tabletRfl: 2 Prescriptions as of 03/24/2018 Sig: ZOLPIDEM 10 MG TABLET Take 1 tablet by mouth at bed* TAMSULOSIN 0.4 MG CAPSULE Take 1 capsule by mouth daily* METOPROLOL SUCCINATE ER 50 MG* Take 1 tablet by mouth once d* DULOXETINE 60 MG CAPSULE,JUDY* Take 1 capsule by mouth once * CYCLOBENZAPRINE 10 MG TABLET Take 1 tablet by mouth once d* ALPRAZOLAM 2 MG TABLET Take 1 tablet by mouth twice * PAROXETINE 30 MG TABLET Take 1 tablet by mouth twice * RABEPRAZOLE 20 MG TABLET,JUDY* Take 1 tablet by mouth once d* ALPRAZOLAM 1 MG TABLET Take 1 tablet by mouth twice * LATEX GLOVES Use 1 pair 4 times a day as n* IBUPROFEN 600 MG TABLET Take 1 tablet by mouth every * ALCOHOL SWABS Use as needed to clean up exc* LIDOCAINE 5 % TOPICAL OINTMENT Apply 1 application to affect* TADALAFIL 5 MG TABLET Take 1 tablet by mouth once d* SYRINGE WITH NEEDLE 3 ML 22 X* Inject 1 Each intramuscularly* LORATADINE 10 MG TABLET Take 1 tablet by mouth once d* AMITRIPTYLINE 10 MG TABLET Take 1 tablet by mouth three * EMPTY CONTAINER use as directed CANE Requires cane for ambulation,* TESTOSTERONE CYPIONATE 200 MG* Inject 1 mL intramuscularly o* GABAPENTIN 300 MG CAPSULE Take 1 capsule by mouth three* OXYBUTYNIN CHLORIDE 5 MG TABL* Take 1 tablet by mouth three * HYDROCORTISONE-PRAMOXINE 1 %-* 1 application by RECTAL route* Problem List As Of Date 03/24/2018 Noted Resolved PITUITARY DISORDER NOS [E23.7] INVALID FOR* DYSMETABOLIC SYNDROME X [E88.81] INVALID FOR* Fibromyalgia [M79.7] INVALID FOR* Depression [F32.9] INVALID FOR* Chronic anxiety [F41.9] INVALID FOR* Insomnia [G47.00] INVALID FOR* Degenerative disc disease, lumbar [M51.36] INVALID FOR* More... Hypogonadism in male [E29.1] INVALID FOR* Arthritis [M19.90] INVALID FOR* BPH (benign prostatic hyperplasia) [N40.0] INVALID FOR* Bilateral low back pain with sciatica [M54.40] INVALID FOR* Midline thoracic back pain [M54.6] INVALID FOR* Fibromyalgia syndrome [M79.7] INVALID FOR* Prescriptions ordered this encounter Disp Refills Start End ZOLPIDEM 10 MG TABLET 30 t* 2 03/24/2018 04/23/2018 Class: Print RX Route: ORAL Sig: Take 1 tablet by mouth at bedtime as needed for up to 30 days. TESTOSTERONE CYPIONATE 200 MG/ML INT* 10 mL 1 03/24/2018 06/22/2018 Class: Print RX Route: INTRAMUSCULA Sig: Inject 1 mL intramuscularly once each week for 90 days. TAMSULOSIN 0.4 MG CAPSULE 90 c* 1 03/24/2018 Route: ORAL Sig: Take 1 capsule by mouth daily at bedtime. METOPROLOL SUCCINATE ER 50 MG TABLET* 30 t* 2 03/24/2018 Route: ORAL Sig: Take 1 tablet by mouth once daily. DULOXETINE 60 MG CAPSULE,DELAYED REL* 30 c* 5 03/24/2018 Route: ORAL Sig: Take 1 capsule by mouth once daily. GABAPENTIN 300 MG CAPSULE 90 c* 2 03/24/2018 06/22/2018 Route: ORAL Sig: Take 1 capsule by mouth three times daily for 90 days. CYCLOBENZAPRINE 10 MG TABLET 90 t* 0 03/24/2018 Route: ORAL Sig: Take 1 tablet by mouth once daily. ALPRAZOLAM 1 MG TABLET 30 t* 2 03/24/2018 03/24/2018 Class: Print RX Route: ORAL Sig: Take 1 tablet by mouth once daily for 90 days. ALPRAZOLAM 2 MG TABLET 60 t* 2 03/24/2018 06/22/2018 Class: Print RX Route: ORAL Sig: Take 1 tablet by mouth twice daily as needed for up to 90 days. PAROXETINE 30 MG TABLET 60 t* 2 03/24/2018 Route: ORAL Sig: Take 1 tablet by mouth twice daily as needed. RABEPRAZOLE 20 MG TABLET,DELAYED REL* 30 t* 11 03/24/2018 Route: ORAL Sig: Take 1 tablet by mouth once daily. OXYBUTYNIN CHLORIDE 5 MG TABLET 90 t* 2 03/24/2018 Route: ORAL Sig: Take 1 tablet by mouth three times daily. HYDROCORTISONE-PRAMOXINE 1 %-1 % REC* 30 g 2 03/24/2018 Route: RECTAL Si application by RECTAL route twice daily. ALPRAZOLAM 1 MG TABLET 60 t* 2 03/24/2018 06/22/2018 Class: Print RX Route: ORAL Sig: Take 1 tablet by mouth twice daily for 90 days. Along with the 2 mg tablet Medications Discontinued During This Encounter zolpidem (AMBIEN) 10 mg tab 30 t* 0 02/24/2018 03/24/2018 Class: Print RX Sig: TAKE 1 TABLET BY MOUTH AT BEDTIME NEEDED FOR INSOMNIA Disc: Reason for discontinue is not on file. testosterone cypionate (DEPO-TESTOST* 10 mL 1 12/03/2017 03/24/2018 Class: Print RX Route: INTRAMUSCULAR Sig: Inject 1 mL intramuscularly once each week for 90 days. Disc: Reason for discontinue is not on file. tamsulosin ER (FLOMAX) 0.4 mg cp24 90 c* 1 12/03/2017 03/24/2018 Route: ORAL Sig: Take 1 capsule by mouth daily at bedtime. Disc: Reason for discontinue is not on file. metoprolol succinate ER (TOPROL XL) * 30 t* 2 12/22/2017 03/24/2018 Route: ORAL Sig: Take 1 tablet by mouth once daily. Disc: Reason for discontinue is not on file. DULoxetine (CYMBALTA) 60 mg capsule 30 c* 5 12/03/2017 03/24/2018 Route: ORAL Sig: Take 1 capsule by mouth once daily. Disc: Reason for discontinue is not on file. gabapentin (NEURONTIN) 300 mg capsule 90 c* 2 12/03/2017 03/24/2018 Route: ORAL Sig: Take 1 capsule by mouth three times daily for 90 days. Disc: Reason for discontinue is not on file. cyclobenzaprine (FLEXERIL) 10 mg tab* 90 t* 0 12/03/2017 03/24/2018 Route: ORAL Sig: Take 1 tablet by mouth once daily. Disc: Reason for discontinue is not on file. ALPRAZolam (XANAX) 1 mg tablet 30 t* 0 02/24/2018 03/24/2018 Class: Print RX Sig: TAKE 1 TABLET BY MOUTH ONCE DAILY IN ADDITION TO THE 2 MG TABLET Disc: Reason for discontinue is not on file. ALPRAZolam 2 mg tablet 60 t* 0 02/24/2018 03/24/2018 Class: Print RX Sig: TAKE 1 TABLET BY MOUTH TWICE DAILY NEEDED Disc: Reason for discontinue is not on file. PARoxetine (PAXIL) 30 mg tablet 60 t* 2 12/03/2017 03/24/2018 Route: ORAL Sig: Take 1 tablet by mouth twice daily as needed. Disc: Reason for discontinue is not on file. RABEprazole (ACIPHEX) 20 mg tablet 30 t* 11 12/03/2017 03/24/2018 Route: ORAL Sig: Take 1 tablet by mouth once daily. Disc: Reason for discontinue is not on file. ALPRAZolam (XANAX) 1 mg tablet 30 t* 2 03/24/2018 03/24/2018 Class: Print RX Route: ORAL Sig: Take 1 tablet by mouth once daily for 90 days. Disc: Reason for discontinue is not on file. Encounter Status:Closed by MICHELE SILVERMAN MD on 03/27/18 PROGRESS Observed: 12/22/2017 Status: COMPLETED Source: [place] 4:42 PM [facility] [place] [facility] [place] REPOSITORY HNO ID: [id number] Author: Marion Silverman Service: (none) Author Type: Physician Type: Progress Notes Filed: 12/24/2017 2:02 PM Note Text: The patient f/u on his anxiety meds, having awful time coping with only 5 mg total daily dose of alprazolam. This is down from a prolonged time of taking 3 mg twice a day. Reports an increase in his panic attacks. Chronic post traumatic pain. He has been seeing Dr Mcmahon He continues to get moderate dose of narcotics from the pain management doctor. Blood pressure is high As it has been on a few visits. PAST MEDICAL HISTORY Diagnosis Date - Anxiety - BPH (benign prostatic hypertrophy) - DDD (degenerative disc disease) - Depression - Hyperlipidemia 9 years old - Insomnia - Knee pain, bilateral - Lisfranc dislocation, right, sequela 11/2016 - Rheumatoid arthritis (HCC) PAST SURGICAL HISTORY Procedure Laterality Date - PAST SURGICAL HISTORY OF Thoraic sol - PAST SURGICAL HISTORY OF Epideryal - PAST SURGICAL HISTORY OF D. septum ALLERGIES Seasonal Allergies MEDICATIONS metoprolol succinate ER (TOPROL XL) 50 mg 24 hr tablet Take 1 tablet by mouth once daily. Latex Gloves (LATEX GLOVES, LARGE) misc Use 1 pair 4 times a day as needed for applying ointment. ibuprofen (MOTRIN) 600 mg tablet Take 1 tablet by mouth every 6 hours as needed. alcohol swabs (ALCOHOL WIPES) padm Use as needed to clean up excess topical ointment. zolpidem (AMBIEN) 10 mg tab Take 1 tablet by mouth at bedtime as needed (insomnia) for up to 90 days. ALPRAZolam (XANAX) 1 mg tablet Take 1 tablet by mouth once daily for 90 days. In addition to the 2 mg tablet. ALPRAZolam 2 mg tablet Take 1 tablet by mouth twice daily as needed for up to 90 days. cyclobenzaprine (FLEXERIL) 10 mg tablet Take 1 tablet by mouth once daily. lidocaine (XYLOCAINE) 5 % ointment Apply 1 application to affected area three times daily as needed. RABEprazole (ACIPHEX) 20 mg tablet Take 1 tablet by mouth once daily. tamsulosin ER (FLOMAX) 0.4 mg cp24 Take 1 capsule by mouth daily at bedtime. testosterone cypionate (DEPO-TESTOSTERONE) 200 mg/mL injection Inject 1 mL intramuscularly once each week for 90 days. Tadalafil (CIALIS) 5 mg tablet Take 1 tablet by mouth once daily. Syringe with Needle, Disp, (BD LUER-HARI SYRINGE) 3 mL 22 x 1 1/2 syrg Inject 1 Each intramuscularly once each week. PARoxetine (PAXIL) 30 mg tablet Take 1 tablet by mouth twice daily as needed. loratadine (CLARITIN) 10 mg tablet Take 1 tablet by mouth once daily. gabapentin (NEURONTIN) 300 mg capsule Take 1 capsule by mouth three times daily for 90 days. amitriptyline (ELAVIL) 10 mg tablet Take 1 tablet by mouth three times daily. DULoxetine (CYMBALTA) 60 mg capsule Take 1 capsule by mouth once daily. 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 Blood pressure approved a little bit on repeat check but still rather high. He is diaphoretic, appears distraught though he is dressed in professional attire with a jacket and tie on today. General: Alert and oriented, pleasant and cooperative. Heart: Regular, normal S1 and S2, no murmurs, rubs, or gallops Lungs: Clear to auscultation bilaterally Abdomen: Benign Extremities: Feet/ankles without edema, posterior tibial pulses full and symmetrical PDMP website checked and validated. All prescriptions have been APPROPRIATELY filled. No suspicious activity was identified. He is getting the pain medicine as previously disclosed. Does not appear to be any surreptitious prescriptions from multiple providers. 12/24/2017 by Marion Silverman MD Labs, his testosterone has been low. The hemoglobin A1c was normal last year. Assessment/Plan: (F41.9) Chronic anxiety (primary encounter diagnosis) Comment: With breakthrough symptoms after a reduction of dose from 6 mg total daily dose to 5 mg total daily dose. Persistent symptoms [address] or [address] Plan: We'll go ahead increase this back with his next fill. He will get 3 mg twice a day as previous (I10) Essential hypertension Comment: Blood pressure control not good today. Plan: Trial of metoprolol, note that racing heartbeat and diaphoresis. Chronic bilateral low back pain with sciatica, sciatica laterality unspecified seeing pain management. plan: Continue the current regimen. (M51.36) Degenerative disc disease, lumbar Comment as above Signed Prescriptions Disp Refills metoprolol succinate ER (TOPROL XL) 50 mg 24 hr tablet 30 tablet 2 Sig: Take 1 tablet by mouth once daily. RTO 3 month follow-up. He will call in when he needs his prescriptions. Marion Silverman MD CNOV Observed: 12/22/2017 Status: COMPLETED Source: [place] 4:20 PM [facility] REPOSITORY Office Visit (FPWADS) SUZETTEASAEL Lincoln ([id number]) 1980 M Date Time Provider Department 12/22/17 4:20 PM MARION SILVERMAN During your visit today, we recorded the following information about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 vm was left to have the patient call the office back regarding the message below Leo Munoz 11/02/2017 1:28 PM Signed Called pt, unable to leave VM. LookFlow message sent with results. Leo Munoz 11/03/2017 2:13 PM Signed 10/29/17 lab results (CMP, CBCD) sent to scanning. Allergies As of Date: 10/29/2017 Noted Allergy Reaction SEASONAL ALLERGIES 09/01/2016 14 - Other: See Comments Comments: Itchy and watery eyes, cough, sneeze Date Reviewed: 09/06/2017 Reviewed by: Lauren Isidro Ma - Fully Assessed Reason for Visit: Outside Lab Results [753] Cmt: [facility] 10/29/17 Reason For Visit History Recorded Prescriptions as of 10/29/2017 Sig: ZOLPIDEM 10 MG TABLET Take 1 tablet by mouth at bed* ALPRAZOLAM 1 MG TABLET Take 1 tablet by mouth once d* ALPRAZOLAM 2 MG TABLET Take 1 tablet by mouth twice * ETODOLAC 400 MG TABLET Take 1 tablet by mouth twice * CYCLOBENZAPRINE 10 MG TABLET Take 1 tablet by mouth once d* LIDOCAINE 5 % TOPICAL OINTMENT Apply 1 application to affect* RABEPRAZOLE 20 MG TABLET,JUDY* Take 1 tablet by mouth once d* TAMSULOSIN 0.4 MG CAPSULE Take 1 capsule by mouth daily* TESTOSTERONE CYPIONATE 200 MG* Inject 1 mL intramuscularly o* TADALAFIL 5 MG TABLET Take 1 tablet by mouth once d* SYRINGE WITH NEEDLE 3 ML 22 X* Inject 1 Each intramuscularly* PAROXETINE 30 MG TABLET Take 1 tablet by mouth twice * LORATADINE 10 MG TABLET Take 1 tablet by mouth once d* GABAPENTIN 300 MG CAPSULE Take 1 capsule by mouth three* AMITRIPTYLINE 10 MG TABLET Take 1 tablet by mouth three * DULOXETINE 60 MG CAPSULE,JUDY* Take 1 capsule by mouth once * ALCOHOL SWABS Use as needed to clean up exc* IBUPROFEN 600 MG TABLET Take 1 tablet by mouth every * EMPTY CONTAINER use as directed LATEX GLOVES Use 1 pair 4 times a day as n* CANE Requires cane for ambulation,* ATORVASTATIN 80 MG TABLET Take 1 tablet by mouth daily * Problem List As Of Date 10/29/2017 Noted Resolved 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 Hypogonadism in male [E29.1] INVALID FOR* Arthritis [M19.90] INVALID FOR* BPH (benign prostatic hyperplasia) [N40.0] INVALID FOR* Bilateral low back pain with sciatica [M54.40] INVALID FOR* Midline thoracic back pain [M54.6] INVALID FOR* Fibromyalgia syndrome [M79.7] INVALID FOR* Encounter Status:Closed by LEO MUNOZ on 11/02/17 PROGRESS Observed: 09/06/2017 Status: COMPLETED Source: [place] 4:54 PM [facility] REPOSITORY O ID: [id number] Author: Marion Silverman Service: (none) Author Type: Physician Type: Progress Notes Filed: 09/07/2017 2:05 PM Note Text: Chief Complaint Patient presents with: Follow Up: medication refill HPI Asael Hunter is a 36 year old male who presents here today for follow-up of chronic back pain. . He went to a local [facility] who was aggressively tapering him down on the meds. R forefoot pain. Seeing Dr Garcia. Multiple fractures last year. He's seeing nicholas Barry mgt. Taking oxy IR QID . Fentanyl patch in past. Doesn't like the patches . She has referred him to rheumatology. Chronic depression. On Paxil 60 mg. Cymbalta now down to 30 mg a day , he's been trying to limit his meds. Loathe to reduce the Paxil. Taking the Lodine . Insomnia, chronic use of Ambien. Anxiety. Xanax 3 mg BID now. Past medical history, appointments, medications, allergies reviewed. Previous Medical History PAST MEDICAL HISTORY Diagnosis Date - Anxiety - BPH (benign prostatic hypertrophy) - DDD (degenerative disc disease) - Depression - Hyperlipidemia 9 years old - Insomnia - Knee pain, bilateral - Rheumatoid arthritis (HCC) Previous Surgical History PAST SURGICAL HISTORY Procedure Laterality Date - PAST SURGICAL HISTORY OF Thoraic sol - PAST SURGICAL HISTORY OF Epideryal - PAST SURGICAL HISTORY OF D. septum Family History FAMILY HISTORY Problem Relation Age of Onset - Cancer Father epileptic seizures - Hypertension Mother - Cancer Paternal Grandfather prostate,lung, tumors Patient Allergies ALLERGIES Allergen Reactions - Seasonal Allergies Other: See Comments Itchy and watery eyes, cough, sneeze Current Medications Current Outpatient Prescriptions on File Prior to Visit: DULoxetine (CYMBALTA) 30 mg capsule TAKE ONE CAPSULE BY MOUTH ONCE DAILY etodolac (LODINE) 400 mg tablet TAKE ONE TABLET BY MOUTH TWICE DAILY Syringe with Needle, Disp, (BD LUER-HARI SYRINGE) 3 mL 22 x 1 1/2 syrg Inject 1 Each intramuscularly once each week. alcohol swabs (ALCOHOL WIPES) padm Use as needed to clean up excess topical ointment. cyclobenzaprine (FLEXERIL) 10 mg tablet Take 1 tablet by mouth once daily. lidocaine (XYLOCAINE) 5 % ointment Apply 1 application to affected area three times daily as needed. RABEprazole (ACIPHEX) 20 mg tablet Take 1 tablet by mouth once daily. zolpidem (AMBIEN) 10 mg tab Take 1 tablet by mouth at bedtime as needed (insomnia) for up to 3 days. loratadine (CLARITIN) 10 mg tablet Take 1 tablet by mouth once daily. Tadalafil (CIALIS) 5 mg tablet Take 1 tablet by mouth once daily. testosterone cypionate (DEPO-TESTOSTERONE) 200 mg/mL injection Inject 1 mL intramuscularly once each week for 90 days. DULoxetine (CYMBALTA) 60 mg capsule Take 2 capsules by mouth once daily. amitriptyline (ELAVIL) 10 mg tablet Take 1 tablet by mouth three times daily. tamsulosin ER (FLOMAX) 0.4 mg cp24 Take 1 capsule by mouth daily at bedtime. gabapentin (NEURONTIN) 300 mg capsule Take 1 capsule by mouth three times daily for 90 days. ibuprofen (MOTRIN) 600 mg tablet Take 1 tablet by mouth every 6 hours as needed. PARoxetine (PAXIL) 30 mg tablet Take 1 tablet by mouth twice daily as needed. Oral Medication Containers (BD [employer]ER) misc use as directed Latex Gloves (LATEX GLOVES, LARGE) misc Use 1 pair 4 times a day as needed for applying ointment. 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 For cholesterol. No current facility-administered medications on file prior to visit. Social History Social History Marital status: Single Spouse name: Years of education: Number of children: Social History Main Topics Smoking status: Passive Smoke Exposure - Never Smoker Packs/day: 0.00 Years: 0.00 Smokeless status: Never Used Alcohol use: No Drug use: No ROS: General: Feels painful , anxious. , no weight changes, fever, chills. HEENT: No sinus congestion, earache, sore throat. Cardiac: No chest pain, palpitations, shortness of breath Resp: No cough, wheeze. GI: No reflux symptoms, food intolerance, bowel changes. : No urinary frequency, dysuria. MS: No pain or joint complaints. PHYSICAL EXAMINATION BP 116/80 (BP Site: Left Arm, BP Position: Sitting, BP Cuff Size: Large Adult) Pulse 112 Resp 12 General: He appear well dressed and he is very well composed. Alert and oriented, no distress, pleasant and cooperative. Heart: Regular, normal S1 and S2, no murmurs, rubs, or gallops Lungs: Clear to auscultation bilaterally Abdomen: Benign Extremities: Feet/ankles without edema, posterior tibial pulses full and symmetrical R foot in a boot. Health Maintenance List DILATED RETINAL EXAM due on 1981 TETANUS due on 1992 DIABETIC FOOT EXAM due on 1997 ONE PNEUMOVAX PRIOR TO AGE 66 due on 1997 HBA1C due on 03/04/2017 URINE ALBUMIN CREATININE RATIO due on 09/01/2017 LDL due on 09/01/2017 INFLUENZA Completed Data reviewed OARRS website checked and validated. All prescriptions have been APPROPRIATELY filled. No suspicious activity was identified.- his OARRS activity is consistent with his stated history. 09/07/2017 by Marion Silverman MD Assessment/Plan: (R73.9) Hyperglycemia (primary encounter diagnosis) Comment: previously noted. Plan: HGB A1C, LIPID PANEL BASIC, COMP METABOLIC PANEL (G47.00) Insomnia, unspecified type Comment: chronic Ambien Plan: zolpidem (AMBIEN) 10 mg tab, amitriptyline (ELAVIL) 10 mg tablet Continue with caution (F41.9) Anxiety Comment: weaning down slightly on this. Plan: ALPRAZolam (XANAX) 1 mg tablet, ALPRAZolam 2 mg tablet (M79.7) Fibromyalgia Comment: Plan: lidocaine (XYLOCAINE) 5 % ointment (E29.1) Hypogonadism in male Comment: Plan: testosterone cypionate (DEPO-TESTOSTERONE) 200 mg/mL injection, Syringe with Needle, Disp, (BD LUER-HARI SYRINGE) 3 mL 22 x 1 1/2 syrg, TESTOSTERONE, FREE AND TOTAL (N40.1) Benign prostatic hyperplasia with lower urinary tract symptoms, symptom details unspecified Comment: he has had success with this, may not need flomax Plan: Tadalafil (CIALIS) 5 mg tablet (N52.8) Other male erectile dysfunction Comment: Plan: Tadalafil (CIALIS) 5 mg tablet (E78.1) Hypertriglyceridemia Comment: Plan: LIPID PANEL BASIC He' on the Ipotor. Signed Prescriptions Disp Refills zolpidem (AMBIEN) 10 mg tab 30 tablet 2 Sig: Take 1 tablet by mouth at bedtime as needed (insomnia) for up to 90 days. LESLI Class: C-IV ALEXANDRO: No ALPRAZolam (XANAX) 1 mg tablet 30 tablet 2 Sig: Take 1 tablet by mouth once daily for 90 days. In addition to the 2 mg tablet. LESLI Class: C-IV ALEXANDRO: No ALPRAZolam 2 mg tablet 60 tablet 2 Sig: Take 1 tablet by mouth twice daily as needed for up to 90 days. LESLI Class: C-IV ALEXANDRO: No etodolac (LODINE) 400 mg tablet 60 tablet 5 Sig: Take 1 tablet by mouth twice daily. ALEXANDRO: No cyclobenzaprine (FLEXERIL) 10 mg tablet 90 tablet 0 Sig: Take 1 tablet by mouth once daily. ALEXANDRO: No lidocaine (XYLOCAINE) 5 % ointment 1 Tube 2 Sig: Apply 1 application to affected area three times daily as needed. ALEXANDRO: No RABEprazole (ACIPHEX) 20 mg tablet 30 tablet 11 Sig: Take 1 tablet by mouth once daily. ALEXANDRO: No tamsulosin ER (FLOMAX) 0.4 mg cp24 90 capsule 1 Sig: Take 1 capsule by mouth daily at bedtime. ALEXANDRO: No testosterone cypionate (DEPO-TESTOSTERONE) 200 mg/mL injection 10 mL 1 Sig: Inject 1 mL intramuscularly once each week for 90 days. LESLI Class: C-III ALEXANDRO: No Tadalafil (CIALIS) 5 mg tablet 30 tablet 5 Sig: Take 1 tablet by mouth once daily. ALEXANDRO: No Syringe with Needle, Disp, (BD LUER-HARI SYRINGE) 3 mL 22 x 1 1/2 syrg 4 Syringe 11 Sig: Inject 1 Each intramuscularly once each week. ALEXANDRO: No PARoxetine (PAXIL) 30 mg tablet 60 tablet 2 Sig: Take 1 tablet by mouth twice daily as needed. ALEXANDRO: No loratadine (CLARITIN) 10 mg tablet 30 tablet 12 Sig: Take 1 tablet by mouth once daily. ALEXANDRO: No gabapentin (NEURONTIN) 300 mg capsule 90 capsule 2 Sig: Take 1 capsule by mouth three times daily for 90 days. ALEXANDRO: No amitriptyline (ELAVIL) 10 mg tablet 90 tablet 2 Sig: Take 1 tablet by mouth three times daily. ALEXANDRO: No DULoxetine (CYMBALTA) 60 mg capsule 30 capsule 5 Sig: Take 1 capsule by mouth once daily. RTO: every 3 mos. Marion Silverman MD CNOV Observed: 09/06/2017 Status: COMPLETED Source: [place] 4:40 PM [facility] REPOSITORY Office Visit (FPWADS) ASAEL HUNTER ([id number]) 1980 M Date Time Provider Department 09/06/17 4:40 PM MARION SILVERMAN During your visit today, we recorded the following information about you: Pulse Respiration Blood pressure 112/minute 12/minute 116/80 Marion Silverman MD 09/07/2017 2:05 PM Signed Chief Complaint Patient presents with: Follow Up: medication refill HPI Asael Hunter is a 36 year old male who presents here today for follow-up of chronic back pain. . He went to a local [facility] who was aggressively tapering him down on the meds. R forefoot pain. Seeing Dr Garcia. Multiple fractures last year. He's seeing nicholas Barry mgt. Taking oxy IR QID . Fentanyl patch in past. Doesn't like the patches . She has referred him to rheumatology. Chronic depression. On Paxil 60 mg. Cymbalta now down to 30 mg a day , he's been trying to limit his meds. Loathe to reduce the Paxil. Taking the Lodine . Insomnia, chronic use of Ambien. Anxiety. Xanax 3 mg BID now. Past medical history, appointments, medications, allergies reviewed. Previous Medical History PAST MEDICAL HISTORY Diagnosis Date - Anxiety - BPH (benign prostatic hypertrophy) - DDD (degenerative disc disease) - Depression - Hyperlipidemia 9 years old - Insomnia - Knee pain, bilateral - Rheumatoid arthritis (HCC) Previous Surgical History PAST SURGICAL HISTORY Procedure Laterality Date - PAST SURGICAL HISTORY OF Thoraic sol - PAST SURGICAL HISTORY OF Epideryal - PAST SURGICAL HISTORY OF D. septum Family History FAMILY HISTORY Problem Relation Age of Onset - Cancer Father epileptic seizures - Hypertension Mother - Cancer Paternal Grandfather prostate,lung, tumors Patient Allergies ALLERGIES Allergen Reactions - Seasonal Allergies Other: See Comments Itchy and watery eyes, cough, sneeze Current Medications Current Outpatient Prescriptions on File Prior to Visit: DULoxetine (CYMBALTA) 30 mg capsule TAKE ONE CAPSULE BY MOUTH ONCE DAILY etodolac (LODINE) 400 mg tablet TAKE ONE TABLET BY MOUTH TWICE DAILY Syringe with Needle, Disp, (BD LUER-HARI SYRINGE) 3 mL 22 x 1 1/2ANDquot; syrg Inject 1 Each intramuscularly once each week. alcohol swabs (ALCOHOL WIPES) padm Use as needed to clean up excess topical ointment. cyclobenzaprine (FLEXERIL) 10 mg tablet Take 1 tablet by mouth once daily. lidocaine (XYLOCAINE) 5 % ointment Apply 1 application to affected area three times daily as needed. RABEprazole (ACIPHEX) 20 mg tablet Take 1 tablet by mouth once daily. zolpidem (AMBIEN) 10 mg tab Take 1 tablet by mouth at bedtime as needed (insomnia) for up to 3 days. loratadine (CLARITIN) 10 mg tablet Take 1 tablet by mouth once daily. Tadalafil (CIALIS) 5 mg tablet Take 1 tablet by mouth once daily. testosterone cypionate (DEPO-TESTOSTERONE) 200 mg/mL injection Inject 1 mL intramuscularly once each week for 90 days. DULoxetine (CYMBALTA) 60 mg capsule Take 2 capsules by mouth once daily. amitriptyline (ELAVIL) 10 mg tablet Take 1 tablet by mouth three times daily. tamsulosin ER (FLOMAX) 0.4 mg cp24 Take 1 capsule by mouth daily at bedtime. gabapentin (NEURONTIN) 300 mg capsule Take 1 capsule by mouth three times daily for 90 days. ibuprofen (MOTRIN) 600 mg tablet Take 1 tablet by mouth every 6 hours as needed. PARoxetine (PAXIL) 30 mg tablet Take 1 tablet by mouth twice daily as needed. Oral Medication Containers (BD [employer]) misc use as directed Latex Gloves (LATEX GLOVES, LARGE) misc Use 1 pair 4 times a day as needed for applying ointment. 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 For cholesterol. No current facility-administered medications on file prior to visit. Social History Social History Marital status: Single Spouse name: Years of education: Number of children: Social History Main Topics Smoking status: Passive Smoke Exposure - Never Smoker Packs/day: 0.00 Years: 0.00 Smokeless status: Never Used Alcohol use: No Drug use: No ROS: General: Feels painful , anxious. , no weight changes, fever, chills. HEENT: No sinus congestion, earache, sore throat. Cardiac: No chest pain, palpitations, shortness of breath Resp: No cough, wheeze. GI: No reflux symptoms, food intolerance, bowel changes. : No urinary frequency, dysuria. MS: No pain or joint complaints. PHYSICAL EXAMINATION BP 116/80 (BP Site: Left Arm, BP Position: Sitting, BP Cuff Size: Large Adult) Pulse 112 Resp 12 General: He appear well dressed and he is very well composed. Alert and oriented, no distress, pleasant and cooperative. Heart: Regular, normal S1 and S2, no murmurs, rubs, or gallops Lungs: Clear to auscultation bilaterally Abdomen: Benign Extremities: Feet/ankles without edema, posterior tibial pulses full and symmetrical R foot in a boot. Health Maintenance List DILATED RETINAL EXAM due on 1981 TETANUS due on 1992 DIABETIC FOOT EXAM due on 1997 ONE PNEUMOVAX PRIOR TO AGE 66 due on 1997 HBA1C due on 03/04/2017 URINE ALBUMIN CREATININE RATIO due on 09/01/2017 LDL due on 09/01/2017 INFLUENZA Completed Data reviewed OARRS website checked and validated. All prescriptions have been APPROPRIATELY filled. No suspicious activity was identified.-his OARRS activity is consistent with his stated history. 09/07/2017 by Marion Silverman MD Assessment/Plan: (R73.9) Hyperglycemia (primary encounter diagnosis) Comment: previously noted. Plan: HGB A1C, LIPID PANEL BASIC, COMP METABOLIC PANEL (G47.00) Insomnia, unspecified type Comment: chronic Ambien Plan: zolpidem (AMBIEN) 10 mg tab, amitriptyline (ELAVIL) 10 mg tablet Continue with caution (F41.9) Anxiety Comment: weaning down slightly on this. Plan: ALPRAZolam (XANAX) 1 mg tablet, ALPRAZolam 2 mg tablet (M79.7) Fibromyalgia Comment: Plan: lidocaine (XYLOCAINE) 5 % ointment (E29.1) Hypogonadism in male Comment: Plan: testosterone cypionate (DEPO-TESTOSTERONE) 200 mg/mL injection, Syringe with Needle, Disp, (BD LUER-HARI SYRINGE) 3 mL 22 x 1 1/2ANDquot; syrg, TESTOSTERONE, FREE AND TOTAL (N40.1) Benign prostatic hyperplasia with lower urinary tract symptoms, symptom details unspecified Comment: he has had success with this, may not need flomax Plan: Tadalafil (CIALIS) 5 mg tablet (N52.8) Other male erectile dysfunction Comment: Plan: Tadalafil (CIALIS) 5 mg tablet (E78.1) Hypertriglyceridemia Comment: Plan: LIPID PANEL BASIC He' on the Ipotor. Signed Prescriptions Disp Refills zolpidem (AMBIEN) 10 mg tab 30 tablet 2 Sig: Take 1 tablet by mouth at bedtime as needed (insomnia) for up to 90 days. LESLI Class: C-IV ALEXANDRO: No ALPRAZolam (XANAX) 1 mg tablet 30 tablet 2 Sig: Take 1 tablet by mouth once daily for 90 days. In addition to the 2 mg tablet. LESLI Class: C-IV ALEXANDRO: No ALPRAZolam 2 mg tablet 60 tablet 2 Sig: Take 1 tablet by mouth twice daily as needed for up to 90 days. LESLI Class: C-IV ALEXANDRO: No etodolac (LODINE) 400 mg tablet 60 tablet 5 Sig: Take 1 tablet by mouth twice daily. ALEXANDRO: No cyclobenzaprine (FLEXERIL) 10 mg tablet 90 tablet 0 Sig: Take 1 tablet by mouth once daily. ALEXANDRO: No lidocaine (XYLOCAINE) 5 % ointment 1 Tube 2 Sig: Apply 1 application to affected area three times daily as needed. ALEXANDRO: No RABEprazole (ACIPHEX) 20 mg tablet 30 tablet 11 Sig: Take 1 tablet by mouth once daily. ALEXANDRO: No tamsulosin ER (FLOMAX) 0.4 mg cp24 90 capsule 1 Sig: Take 1 capsule by mouth daily at bedtime. ALEXANDRO: No testosterone cypionate (DEPO-TESTOSTERONE) 200 mg/mL injection 10 mL 1 Sig: Inject 1 mL intramuscularly once each week for 90 days. LESLI Class: C-III ALEXANDRO: No Tadalafil (CIALIS) 5 mg tablet 30 tablet 5 Sig: Take 1 tablet by mouth once daily. ALEXANDRO: No Syringe with Needle, Disp, (BD LUER-HARI SYRINGE) 3 mL 22 x 1 1/2ANDquot; syrg 4 Syringe 11 Sig: Inject 1 Each intramuscularly once each week. ALEXANDRO: No PARoxetine (PAXIL) 30 mg tablet 60 tablet 2 Sig: Take 1 tablet by mouth twice daily as needed. ALEXANDRO: No loratadine (CLARITIN) 10 mg tablet 30 tablet 12 Sig: Take 1 tablet by mouth once daily. ALEXANDRO: No gabapentin (NEURONTIN) 300 mg capsule 90 capsule 2 Sig: Take 1 capsule by mouth three times daily for 90 days. ALEXANDRO: No amitriptyline (ELAVIL) 10 mg tablet 90 tablet 2 Sig: Take 1 tablet by mouth three times daily. ALEXANDRO: No DULoxetine (CYMBALTA) 60 mg capsule 30 capsule 5 Sig: Take 1 capsule by mouth once daily. RTO: every 3 mos. Marion Silverman MD Referring Provider: SELF [200] Allergies As of Date: 09/06/2017 Noted Allergy Reaction SEASONAL ALLERGIES 09/01/2016 14 - Other: See Comments Comments: Itchy and watery eyes, cough, sneeze Date Reviewed: 09/06/2017 Reviewed by: Lauren Isidro Ma - Fully Assessed Reason for Visit: Follow Up [171] Cmt: medication refill Primary Visit Diagnosis:Hyperglycemia [R73.9] Other Visit Diagnoses:Insomnia, unspecified type [G47.00] Anxiety [F41.9] Fibromyalgia [M79.7] Hypogonadism in male [E29.1] Benign prostatic hyperplasia with lower urinary tract symptoms, symptom details unspecified [N40.1] Other male erectile dysfunction [N52.8] Hypertriglyceridemia [E78.1] Order(s):zolpidem (AMBIEN) 10 mg tabTake 1 tablet by mouth at bedtime as needed (insomnia) for up to 90 days.Disp: 30 tabletRfl: 2 ALPRAZolam (XANAX) 1 mg tabletTake 1 tablet by mouth once daily for 90 days. In addition to the 2 mg tablet.Disp: 30 tabletRfl: 2 ALPRAZolam 2 mg tabletTake 1 tablet by mouth twice daily as needed for up to 90 days.Disp: 60 tabletRfl: 2 etodolac (LODINE) 400 mg tabletTake 1 tablet by mouth twice daily.Disp: 60 tabletRfl: 5 cyclobenzaprine (FLEXERIL) 10 mg tabletTake 1 tablet by mouth once daily.Disp: 90 tabletRfl: 0 lidocaine (XYLOCAINE) 5 % ointmentApply 1 application to affected area three times daily as needed.Disp: 1 TubeRfl: 2 RABEprazole (ACIPHEX) 20 mg tabletTake 1 tablet by mouth once daily.Disp: 30 tabletRfl: 11 tamsulosin ER (FLOMAX) 0.4 mg [id number] 1 capsule by mouth daily at bedtime.Disp: 90 capsuleRfl: 1 testosterone cypionate (DEPO-TESTOSTERONE) 200 mg/mL injectionInject 1 mL intramuscularly once each week for 90 days.Disp: 10 mLRfl: 1 Tadalafil (CIALIS) 5 mg tabletTake 1 tablet by mouth once daily.Disp: 30 tabletRfl: 5 Syringe with Needle, Disp, (BD LUER-HARI SYRINGE) 3 mL 22 x 1 1/2 syrgInject 1 Each intramuscularly once each week.Disp: 4 SyringeRfl: 11 PARoxetine (PAXIL) 30 mg tabletTake 1 tablet by mouth twice daily as needed.Disp: 60 tabletRfl: 2 loratadine (CLARITIN) 10 mg tabletTake 1 tablet by mouth once daily.Disp: 30 tabletRfl: 12 gabapentin (NEURONTIN) 300 mg capsuleTake 1 capsule by mouth three times daily for 90 days.Disp: 90 capsuleRfl: 2 amitriptyline (ELAVIL) 10 mg tabletTake 1 tablet by mouth three times daily.Disp: 90 tabletRfl: 2 TESTOSTERONE, FREE AND TOTAL [SQFTESTO] Order #: [id number] FUTURE HGB A1C [RSPXS5J] Order #: [id number] FUTURE LIPID PANEL BASIC [SQLIPB] Order #: [id number] FUTURE COMP METABOLIC PANEL [SQCMP] Order #: [id number] FUTURE DULoxetine (CYMBALTA) 60 mg capsuleTake 1 capsule by mouth once daily.Disp: 30 capsuleRfl: 5 Prescriptions as of 09/06/2017 Sig: ZOLPIDEM 10 MG TABLET Take 1 tablet by mouth at bed* ALPRAZOLAM 1 MG TABLET Take 1 tablet by mouth once d* ALPRAZOLAM 2 MG TABLET Take 1 tablet by mouth twice * ETODOLAC 400 MG TABLET Take 1 tablet by mouth twice * CYCLOBENZAPRINE 10 MG TABLET Take 1 tablet by mouth once d* LIDOCAINE 5 % TOPICAL OINTMENT Apply 1 application to affect* RABEPRAZOLE 20 MG TABLET,JUDY* Take 1 tablet by mouth once d* TAMSULOSIN 0.4 MG CAPSULE Take 1 capsule by mouth daily* TESTOSTERONE CYPIONATE 200 MG* Inject 1 mL intramuscularly o* TADALAFIL 5 MG TABLET Take 1 tablet by mouth once d* SYRINGE WITH NEEDLE 3 ML 22 X* Inject 1 Each intramuscularly* PAROXETINE 30 MG TABLET Take 1 tablet by mouth twice * LORATADINE 10 MG TABLET Take 1 tablet by mouth once d* GABAPENTIN 300 MG CAPSULE Take 1 capsule by mouth three* AMITRIPTYLINE 10 MG TABLET Take 1 tablet by mouth three * DULOXETINE 60 MG CAPSULE,JUDY* Take 1 capsule by mouth once * ALCOHOL SWABS Use as needed to clean up exc* IBUPROFEN 600 MG TABLET Take 1 tablet by mouth every * EMPTY CONTAINER use as directed LATEX GLOVES Use 1 pair 4 times a day as n* CANE Requires cane for ambulation,* ATORVASTATIN 80 MG TABLET Take 1 tablet by mouth daily * Problem List As Of Date 09/06/2017 Noted Resolved 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 Hypogonadism in male [E29.1] INVALID FOR* Arthritis [M19.90] INVALID FOR* BPH (benign prostatic hyperplasia) [N40.0] INVALID FOR* Bilateral low back pain with sciatica [M54.40] INVALID FOR* Midline thoracic back pain [M54.6] INVALID FOR* Fibromyalgia syndrome [M79.7] INVALID FOR* Prescriptions ordered this encounter Disp Refills Start End ZOLPIDEM 10 MG TABLET 30 t* 2 09/06/2017 12/05/2017 Class: Print RX Route: ORAL Sig: Take 1 tablet by mouth at bedtime as needed (insomnia) for up to 90 days. ALPRAZOLAM 1 MG TABLET 30 t* 2 09/06/2017 12/05/2017 Class: Print RX Route: ORAL Sig: Take 1 tablet by mouth once daily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 ing:GX8Wcii: Repository EK270Tmg: 1 11/19/2017 [id number] [facility], Ambulatory BMSBuilding:B Jose E Kent [facility] Repository 11/19/2017 [id number] [facility], Ambulatory BMSBuilding:B Jose E [place] [facility] Repository 11/19/2017 [id number] [facility], Ambulatory BMSBuilding:B Jose E Lindsh [place].[facility] Repository 11/19/2017/11/22/19 [id number] Ambulatory BMSBuilding:W Jose [address] Repository 10/29/2017 [id number] Ambulatory [facility] ing:MFPLAB Repository 09/28/2017 [id number] Ambulatory [facility] g:H.PM Repository 09/06/2017/09/09/19 [id number] Ambulatory [address] Repository 08/24/2017/08/25/19 [id number] Ambulatory BMSBuilding:B Jose E 18 [place] Repository 07/19/2017/07/19/19 [id number] Ambulatory BMSBuilding:B Jose E 18 [place] Repository 07/11/2017/07/11/19 [id number] Emergency [address] ing:ED Repository 07/06/2017 [id number] Ambulatory [facility] g:H.PM Repository PAYERS PAYERS ENCOUNTER GUARANTOR PAYER SUBSCRIBER SOURCE 06/22/2018 ASAEL Giraldo Primary ASAEL Dorantes [id number] Insurance:[facility]: [facility] Number: [id number] [id number] Repository [address]Sur: ([phone]) Date:2018-06-22P O [phone] () [address]ATTN: [place] [address]MM: 06/22/2018 Secondary NOT GIVENUNK Jose E Insurance:SELF PAY [facility] Number: Effective Repository Date:2018-06-22 05/17/2018 ASAEL MOONEYZUGustaboSamar[facility] [id number] Insurance:[facility] Number: [place]ository [place] [id number] [phone]: ([phone]) Date:2017-01-05P.O. [phone] () [address] [place] [address] 46[address]HD: 04/20/2018 ASAEL Giraldo Primary ASAEL Dorantes [id number] Insurance:[facility] OTZB: [facility] Number: [id number], [place] [id number] Repository 960[address]Bvn: ([phone]) Date:2017-01-05P O [phone] () [address]ATTN: [place] [address]BN: 04/20/2018 Secondary NOT GIVENUNK Jose E Insurance:SELF PAY [facility] Number: Effective Repository Date:2018-04-12 02/24/2018 ASAEL Primary ASAEL [facility] [id number] Insurance:[facility] Number: Repository [place] [id number] [phone]: ([phone]) Date:2017-01-05P.O. [phone] (HP) [address] [place] [address] 32565YR: 12/20/2017 ASAEL GREEN [facility] [id number] Insurance:[facility] Number: Repository [place] [id number] [phone]: ([phone]) Date:2017-01-05P.O. [phone] (HP) [address] [place] [address] 74101ZM: 11/19/2017 ASAEL Giraldo Primary ASAEL Dorantes [id number] Insurance:[facility]: [facility]ly [facility] Number: [id number], [place] [id number] Repository 779[address]Vpr: Date:2017-10-13 O [phone] [address]ATTN: CLAIMS -3 (HP) [place] [address]UU: 11/19/2017 Secondary NOT GIVENUNK [place] Insurance:SELF PAY [facility] Number: Effective Repository Date:2017-10-13 11/19/2017 ASAEL Giraldo Primary ASAEL Dorantes [id number] [facility] OTZB: [facility] Number: [id number], [place] [id number] Repository [address]Jtl: Date:2017-10-13 O [phone] [address]ATTN: CLAIMS -3 (HP) [place] [address]ZQ: 11/19/2017 Secondary NOT GIVENUNK [place] Insurance:SELF PAY [facility] Number: Effective Repository Date:2017-11-19 11/19/2017 ASAEL Giraldo Primary ASAEL Dorantes [id number] [facility]: [facility] Number: [id number], [place] [id number] Repository [address]Car: [phone]) Date:2017-10-13 O [phone] (HP) [address]ATTN: [place] [address]RM: 11/19/2017 Secondary NOT GIVENUNK [place] Insurance:SELF PAY [facility] Number: Effective Repository Date:2017-11-19 11/19/2017 ASAEL Giraldo Primary ASAEL Dorantes [id number] Insurance:[facility] KLOTZDOB: [facility] Number: [id number], [place] [id number] Repository [address]Xjq: ([phone]) Date:2017-10-13 O [phone] (HP) [address]ATTN: [place] [address]VD: 11/19/2017 Secondary NOT GIVENUNK Jose E Insurance:SELF PAY [facility] Number: Effective Repository Date:2017-11-19 11/19/2017 ASAEL Giraldo Primary ASAEL Dorantes [id number] Insurance:[employer]P KLOTZDOB: [facility] Number: [id number], [place] [id number] Repository 132[address]Yaz: ([phone]) Date:2017-10-13 O [phone] (HP) [address]ATTN: [place] [address]HB: 11/19/2017 Secondary NOT GIVENUNK Jose E Insurance:SELF PAY [facility] Number: Effective Repository Date:2017-11-19 10/29/2017 ASAEL Giraldo Primary ASAEL Dorantes [id number] Insurance:[employer]P KLOTZDOB: [facility] Number: [id number], [place] [id number] Repository [address]Quf: Date:2017-10-29P O [phone] [address]ATTN: CLAIMS -3 (HP) [place] [address]BQ: 10/29/2017 Secondary NOT GIVENUNK [place] Insurance:SELF PAY [facility] Number: Effective Repository Date:2017-10-29 09/28/2017 ASAEL MOONEYZUJESSICA [facility] [id number] Insurance:[facility] Number: Repository [place] [id number] [phone]: [phone]) Date:2017-01-05P.O. [phone] (HP) [address] [address]TS: 08/24/2017 ASAEL Giraldo Primary ASAEL Dorantes [id number] Insurance:[facility] OTZDOB: [facility]ly [facility] Number: [id number], [place] [id number] Repository [address]Jgo: Date:2017-08-20P O [phone] [address]ATTN: CLAIMS -3 (HP) [place] [address]JF: 08/24/2017 Secondary NOT GIVENUNK [place] Insurance:SELF PAY [facility] Number: Effective Repository Date:2017-08-20 07/19/2017 ASAEL Giraldo Primary ASAEL Dorantes [id number] Insurance:[facility] OTZDOB: [facility] Number: [id number], [place] [id number] Repository [address]34[address]Tsd: Date:2017-07-14P O [phone] [address]ATTN: CLAIMS -3 (HP) [place] [address]CM: 07/19/2017 Secondary NOT GIVENUNK Jose E Insurance:SELF PAY [facility] Number: Effective Repository Date:2017-07-14 07/11/2017 Asael Giraldo Primary Asael Dorantes [id number] Insurance:[facility] Number: [id number] [id number] Repository [address]Ikh: Date:2017-07-11P O [phone] [address]ATTN: CLAIMS -3 (HP) [place] [address]NM: 07/11/2017 Secondary NOT GIVENUNK Jose E Insurance:SELF PAY [facility]: Effective Repository Date:2017-07-11 07/06/2017 ASAEL JONES [facility] [id number] Insurance:[facility] Number: Repository [place] [id number] [address]Sno: [phone]) Date:2017-01-05P.O. [phone] () [address] [place] [address] 83[address]TS:
== END 2018-06-22 19:25 | disposition home or self-care (01) ==
LOC: ED 19:11
PROVIDERS: Emergency Provider Emergency Medicine; Family Provider Family Medicine; PCP Family Medicine
DX: F41.9 Anxiety disorder, unspecified (principal); G47.00 Insomnia, unspecified
CPT/HCPCS: 99283

== ENCOUNTER 2018-07-16 08:48 | Emergency (ER) | payer MEDICAID, SELFPAY ==
[2018-07-16 08:49] VITALS: BP 140/84; PULSE 89; RESP 14; TEMP 36.1; O2SAT 97
--- NOTE | 2018-07-16 09:56 | EKG12_ITS ---
Test Reason : FALL Blood Pressure : / mmHG Vent. Rate : 088 BPM Atrial Rate : 088 BPM P-R Int : 168 ms QRS Dur : 096 ms QT Int : 366 ms P-R-T Axes : 041 044 019 degrees QTc Int : 442 ms Normal sinus rhythm Normal ECG Confirmed by JAMES OCHOA MD ([id number]), news videotape editor TRINA HOLM ([id number] on 07/19/2018 8:31:06 AM Referred By: DYLON Confirmed By:JAMES OCHOA MD
--- NOTE | 2018-07-16 09:57 | CT_ITS ---
STUDY: CT CHEST WITH CONTRAST REASON FOR EXAM: Male, 37 years old. Fall last night RADIATION DOSAGE (If Supplied By Facility): CTDIvol = ( ) mGy, DLP = ( ) mGycm TECHNIQUE: Transaxial imaging was performed following intravenous administration of 100 ml of Isovue 300 contrast material. Individualized dose optimization techniques were used for this CT. COMPARISON: None. FINDINGS: No airspace consolidation. Lungs are underexpanded. There is no demonstrated pleural abnormality. Normal heart and pericardium. Normal mediastinum. Normal hilar regions. Normal enhanced pulmonary arteries. Normal aorta arch and descending thoracic aorta. Normal variant origin of the left vertebral artery from the aortic arch. Normal osseous structures. Upper abdomen described on abdomen/pelvis CT report. CT/Chest WITH Contrast IMPRESSION: No acute traumatic aortic injury, pneumothorax or pleural effusion. No rib fracture identified. Electronically Signed: Dakota Benitez MD at 11:02 EST , Service support ,
--- NOTE | 2018-07-16 09:57 | CT_ITS ---
STUDY: CT ABDOMEN AND PELVIS WITH CONTRAST REASON FOR EXAM: Male, 37 years old. Last night, abdominal pain RADIATION DOSAGE (If Supplied By Facility): CTDIvol = ( ) mGy, DLP = ( ) mGycm TECHNIQUE: Transaxial images were obtained from the dome of the diaphragm to the symphysis pubis without oral contrast. 100 ml of Isovue 300 contrast was administered. Sagittal and coronal images were reconstructed. Individualized dose optimization techniques were used for this CT. COMPARISON: None. FINDINGS: Lung bases described on chest CT report. Liver is mildly enlarged with diffuse diminished attenuation suggesting hepatic steatosis. Normal gallbladder and extrahepatic biliary system. Normal spleen. Normal pancreas. Normal bilateral adrenal glands. Normal right kidney. Normal left kidney. Normal visualized stomach. Normal small intestine. Moderate fecal residue throughout the colon but no colon wall thickening. The appendix is visualized and appears normal. No pneumoperitoneum. Normal abdominal aorta. Normal inferior vena cava. Normal retroperitoneum. Normal urinary bladder. There is a small umbilical hernia containing fat. Normal osseous structures. CT/Abdomen/Pelvis WITH Contrast IMPRESSION: 1. No solid organ injury, ascites or pneumoperitoneum. 2. Mild hepatic steatosis with borderline hepatomegaly 3. Mild fecal retention. 4. Small fat-containing periumbilical hernia. Electronically Signed: Dakota Benitez MD at 11:03 EST , Service support ,
--- NOTE | 2018-07-16 09:58 | CT_ITS ---
STUDY: CT BRAIN WITHOUT CONTRAST REASON FOR EXAM: Male, 37 years old. Trauma RADIATION DOSAGE (If Supplied By Facility): CTDIvol = ( ) mGy, DLP = ( ) mGycm TECHNIQUE: Transaxial CT imaging of the brain was performed without administration of intravenous contrast material. Individualized dose optimization techniques were used for this CT. COMPARISON: None. FINDINGS: Normal soft tissue structures. Normal calvarium. Normal size ventricles and extra-axial spaces for the patient's age. Normal white matter tracts of the cerebral hemispheres. Normal basal ganglia and thalami. Normal brainstem. Normal cerebellum. There is no intracranial hemorrhage. There are no findings of an acute ischemic infarction. There is mucosal thickening of the left frontal sinuses. There is deformity of the inferior right orbital floor with mild protruding intraorbital fat inferiorly, stable since the prior study. CT/Brain/Head without Contrast IMPRESSION: 1. No acute intracranial hemorrhage or mass effect. 2. Old right orbital floor fracture, stable. Electronically Signed: Dakota Benitez MD at 10:57 EST , Service support ,
--- NOTE | 2018-07-16 09:58 | CT_ITS ---
STUDY: CT CERVICAL SPINE WITHOUT CONTRAST REASON FOR EXAM: Male, 37 years old. Fall last night, neck pain RADIATION DOSAGE (If Supplied By Facility): CTDIvol = ( ) mGy, DLP = ( ) mGycm TECHNIQUE: High resolution transaxial imaging was performed without contrast material. Sagittal and coronal images were reconstructed. Individualized dose optimization techniques were used for this CT. COMPARISON: 04/29/2016 FINDINGS: Normal craniovertebral junction. Normal anterior atlantoaxial articulation. Normal odontoid process. Normal cervical lordosis. Normal vertebral bodies and posterior osseous elements. C2-3: Normal endplates. Normal disc height and morphology. Normal central canal and intervertebral neuroforamina. C3-4: Normal endplates. Normal disc height and morphology. Normal central canal and intervertebral neuroforamina. C4-5: Normal endplates. Normal disc height and morphology. Normal central canal and intervertebral neuroforamina. C5-6: Normal endplates. Normal disc height and morphology. Normal central canal and intervertebral neuroforamina. C6-7: Normal endplates. Normal disc height and morphology. Normal central canal and intervertebral neuroforamina. C7-T1: Normal endplates. Normal disc height and morphology. Normal central canal and intervertebral neuroforamina. Normal visualized soft tissue structures. CT/Spine Cervical without Contras IMPRESSION: Normal unenhanced CT examination of the cervical spine. Electronically Signed: Dakota Benitez MD at 11:00 EST , Service support ,
--- NOTE | 2018-07-16 09:58 | RAD_ITS ---
STUDY: X-RAY - RIGHT FOOT CLINICAL: Male, 37 years old. Fall, right foot swelling TECHNIQUE: 3 view(s) of the foot. COMPARISON: 11/19/2017 FINDINGS: Normal talus, calcaneus, and tarsal bones. Sequela of prior surgery of the tarsal-metatarsal articulations with residual orthopedic hardware, stable since prior study of 11/19/2017. Prior screw tracks identified. There is bony fusion of the first and second tarsal-metatarsal articulations, stable. No acute fracture. There is degenerative arthrosis of the metatarsophalangeal joint of the hallux . Normal tibial and fibular sesamoid bones. Normal interphalangeal joint of the great toe. Normal phalanges of the great toe. Normal second through fifth metatarsophalangeal joints. Normal interphalangeal joints and phalanges of the lesser toes. There is mild diffuse soft tissue swelling. RAD/Foot min 3 Views IMPRESSION: 1. No acute fracture. 2. Postoperative changes similar since prior study. Electronically Signed: Dakota Benitez MD at 10:59 EST , Service support ,
--- NOTE | 2018-07-16 09:59 | ED.VISSUMM ---
- ER Visit Summary Date of Service: 07/16/18 Chief Complaint: Trauma History of Present Illness: The patient is a 37 M who presents for evaluation of head injury and right foot pain after trauma. Patient states he took sleeping medicine last night. He then states he fell out of bed and fell down the stairs. He is also given the story that he fell 20 feet. States he hit his head against a rail. He thinks he lost consciousness. Is complaining of head pain and right foot pain. Remainder of history is difficult to obtain as patient is not answering questions. Physical Examination: Vital signs: afebrile, hemodynamically stable, no hypoxia on room air General: well nourished, well developed, laying in bed in no obvious distress Skin: warm, dry, no rash, no pallor HEENT: normocephalic, multiple parallel linear abrasions to the left forehead and the right scalp with dried blood, no active bleeding ; both are 7 mm dilated and sluggish, EOMI, moist mucous membranes, no obvious maxillofacial trauma Cardiovascular: regular rate and rhythm without murmurs, no peripheral edema, 2+ pulses all distal extremities Respiratory: No increased work of breathing, lungs are clear to auscultation bilaterally, no rales, rhonchi or wheezing Abdominal: Abdomen is soft, tender palpation especially in the left upper quadrant, with normoactive bowel sounds, no guarding or rebound, no masses MSK: Will not move extremities on command, pain with logroll of the right leg, well-healed surgical scars on the right foot, no obvious deformities, swelling or hematoma, pain with range of motion of the foot and ankle. Neuro: Awake but somnolent, speech is mildly slurred, patient slow to answer questions and often does not answer any questions at all. No sensory or motor focal deficits appreciated Test Results: Abnormal Lab Results 07/16/18 07/16/18 07/16/18 10:11 10:32 10:32 WBC 9.2 RBC 5.53 Hgb 16.4 Hct 48.4 MCV 87.5 MCH 29.7 MCHC 33.9 RDW 13.5 RDW Differential 43.5 Plt Count 304 MPV 8.8 Immature Gran % (Auto) 1.200 H Neut % (Auto) 55.6 Lymph % (Auto) 35.3 [place] % (Auto) 6.9 Eos % (Auto) 0.5 Baso % (Auto) 0.5 Absolute Neuts (auto) 5.1 Absolute Lymphs (auto) 3.24 Total Counted Not Reportable PT INR APTT Sodium 140 Potassium 3.8 Chloride 107 Carbon Dioxide 24.0 Anion Gap 9 BUN 11 Creatinine 0.99 Estim Creat Clear Calc 4.05 Est GFR (MDRD) Af Amer 110 Est GFR (MDRD) Non-Af 91 BUN/Creatinine Ratio 11.2 Glucose 99 Calcium 8.7 Total Bilirubin 0.10 L Direct Bilirubin < 0.05 AST 51 H ALT 108 H Alkaline Phosphatase 125 H Total Protein 7.9 Albumin 4.1 Globulin 3.8 Urine Opiates Screen Urine Methadone Screen Ur Barbiturates Screen Ur Phencyclidine Scrn Ur Amphetamines Screen U Methamphetamin-MDMA U Benzodiazepines Scrn Urine Cocaine Screen U Cannabinoids Screen Ur Drug Screen Comment Ethyl Alcohol POC Glucose 102 07/16/18 07/16/18 07/16/18 10:32 10:32 11:32 WBC RBC Hgb Hct MCV MCH MCHC RDW RDW Differential Plt Count MPV Immature Gran % (Auto) Neut % (Auto) Lymph % (Auto) [place] % (Auto) Eos % (Auto) Baso % (Auto) Absolute Neuts (auto) Absolute Lymphs (auto) Total Counted PT 11.8 INR 0.9 APTT 29.2 Sodium Potassium Chloride Carbon Dioxide Anion Gap BUN Creatinine Estim Creat Clear Calc Est GFR (MDRD) Af Amer Est GFR (MDRD) Non-Af BUN/Creatinine Ratio Glucose Calcium Total Bilirubin Direct Bilirubin AST ALT Alkaline Phosphatase Total Protein Albumin Globulin Urine Opiates Screen NEGATIVE Urine Methadone Screen NEGATIVE Ur Barbiturates Screen NEGATIVE Ur Phencyclidine Scrn NEGATIVE Ur Amphetamines Screen NEGATIVE U Methamphetamin-MDMA NEGATIVE U Benzodiazepines Scrn POSITIVE H Urine Cocaine Screen NEGATIVE U Cannabinoids Screen NEGATIVE Ur Drug Screen Comment Ethyl Alcohol 146.0 POC Glucose Clinical Impression(s) from Imaging Studies Abdomen/Pelvis CT 07/16/18 09:57 IMPRESSION: 1. No solid organ injury, ascites or pneumoperitoneum. 2. Mild hepatic steatosis with borderline hepatomegaly 3. Mild fecal retention. 4. Small fat-containing periumbilical hernia. Electronically Signed: Dakota Benitez MD at 11:03 EST , Service support , Chest CT 07/16/18 09:57 IMPRESSION: No acute traumatic aortic injury, pneumothorax or pleural effusion. No rib fracture identified. Electronically Signed: Dakota Benitez MD at 11:02 EST , Service support , Brain CT 07/16/18 09:58 IMPRESSION: 1. No acute intracranial hemorrhage or mass effect. 2. Old right orbital floor fracture, stable. Electronically Signed: Dakota Benitez MD at 10:57 EST , Service support , Cervical Spine CT 07/16/18 09:58 IMPRESSION: Normal unenhanced CT examination of the cervical spine. Electronically Signed: Dakota Benitez MD at 11:00 EST , Service support , Foot X-Ray 07/16/18 09:58 IMPRESSION: 1. No acute fracture. 2. Postoperative changes similar since prior study. Electronically Signed: Dakota Benitez MD at 10:59 EST , Service support , Medications Given Discontinued Medications Diphtheria/Tetanus/Acell Pertussis (Adacel) 0.5 ml IM .ONCE ONE Stop: 07/16/18 09:57 Last Admin: 07/16/18 10:30 Dose: 0.5 ml Sodium Chloride () 1,000 mls @ 999 mls/hr IV .Q1H1M ONE Stop: 07/16/18 10:56 Last Admin: 07/16/18 10:29 Dose: 999 mls/hr Naproxen (Naprosyn) 500 mg PO X1 ONE Stop: 07/16/18 12:58 Last Admin: 07/16/18 13:01 Dose: 500 mg Emergency Department Course and Treatment: Patient presents with complaint of head injury and right foot pain after stating he fell out of bed and then fell down several steps. At this time he is somnolent with slurred speech and often will not answer questions. He is on zolpidem and benzodiazepines, which is very likely the cause of his somnolence. However because of his altered mental status, trauma workup was performed. Head CT showed no intracranial hemorrhage. C-spine showed no fractures. Chest abdomen pelvis showed no signs of internal trauma. Foot x-ray showed no fracture or dislocation. Patient had an elevated blood alcohol level on workup, consistent with intoxication. Patient received IV fluids. Workup was otherwise unremarkable. On reevaluation patient was talking appropriately and answering questions. He was given naproxen for pain. He did receive an update on his tetanus when he first presented due to the abrasions on his scalp and forehead from apparent hitting his head on a rail of some sort. Mother and patient were comfortable with discharge. Patient discharged home in improved condition. Treatment Plan: [] Disposition: [] Impression: Scalp abrasions, right foot injury, alcohol intoxication This note was generated with [employer] dictation software. It may contain incorrect words, spelling, and punctuation that were not noted in review of the chart prior to signing ED Disposition - Plan for ED Patient: Disposition: Home or Assisted Living Instructions: ED Abrasion, ED Sprain Foot, ED Prevention Fall Referrals: Michele Sheffield MD [Primary Care Provider] - 3-5 Days if not improving Additional Instructions: Use [id number] pain medication as needed for any pain. You have no significant injuries from your fall. You did not require any stitches. Your tetanus was updated. Please talk to your doctor about the medications you take, as they make you more likely to fall. If you have any worsening of your condition or any new concerning symptoms, please return immediately to the emergency department for another evaluation.
--- NOTE | 2018-07-16 10:03 | ED.DCSUM_ITS ---
- ER Visit Summary Date of Service: 07/16/18 Chief Complaint: Trauma History of Present Illness: The patient is a 37 M who presents for evaluation of head injury and right foot pain after trauma. Patient states he took sleeping medicine last night. He then states he fell out of bed and fell down the stair s. He is also given the story that he fell 20 feet. States he hit his head against a rail. He thinks he lost consciousness. Is complaining of head pain and right foot pain. Remainder of history is difficult to obtain as patient is not answering questions. Physical Examination: Vital signs: afebrile, hemodynamically stable, no hypoxia on room air General: well nourished, well developed, laying in bed in no obvious distress Skin: warm, dry, no rash, no pallor HEENT: normocephalic, multiple parallel linear abrasions to the left forehead and the right scalp with dried blood, no active bleeding ; both are 7 mm dilated and sluggish, EOMI, moist mucous membranes, no obvious maxillofacial trauma Cardiovascular: regular rate and rhythm without murmurs, no peripheral edema, 2+ pulses all distal extremities Respiratory: No increased work of breathing, lungs are clear to auscultation bilaterally, no rales, rhonchi or wheezing Abdominal: Abdomen is soft, tender palpation especially in the left upper quadrant, with normoactive bowel sounds, no guarding or rebound, no masses MSK: Will not move extremities on command, pain with logroll of the right leg, well-healed surgical scars on the right foot, no obvious deformities, swelling or hematoma, pain with range of motion of the foot and ankle. Neuro: Awake but somnolent, speech is mildly slurred, patient slow to answer questions and often does not answer any questions at all. No sensory or motor focal deficits appreciated Test Results: Abnormal Lab Results 07/16/18 07/16/18 07/16/18 10:11 10:32 10:32 WBC 9.2 RBC 5.53 Hgb 16.4 Hct 48.4 MCV 87.5 MCH 29.7 MCHC 33.9 RDW 13.5 RDW Differential 43.5 Plt Count 304 MPV 8.8 Immature Gran % (Auto) 1.200 H Neut % (Auto) 55.6 Lymph % (Auto) 35.3 [place] % (Auto) 6.9 Eos % (Auto) 0.5 Baso % (Auto) 0.5 Absolute Neuts (auto) 5.1 Absolute Lymphs (auto) 3.24 Total Counted Not Reportable PT INR APTT Sodium 140 Potassium 3.8 Chloride 107 Carbon Dioxide 24.0 Anion Gap 9 BUN 11 Creatinine 0.99 Estim Creat Clear Calc 4.05 Est GFR (MDRD) Af Amer 110 Est GFR (MDRD) Non-Af 91 BUN/Creatinine Ratio 11.2 Glucose 99 Calcium 8.7 Total Bilirubin 0.10 L Direct Bilirubin < 0.05 AST 51 H ALT 108 H Alkaline Phosphatase 125 H Total Protein 7.9 Albumin 4.1 Globulin 3.8 Urine Opiates Screen Urine Methadone Screen Ur Barbiturates Screen Ur Phencyclidine Scrn Ur Amphetamines Screen U Methamphetamin-MDMA U Benzodiazepines Scrn Urine Cocaine Screen U Cannabinoids Screen Ur Drug Screen Comment Ethyl Alcohol POC Glucose 102 07/16/18 07/16/18 07/16/18 10:32 10:32 11:32 WBC RBC Hgb Hct MCV MCH MCHC RDW RDW Differential Plt Count MPV Immature Gran % (Auto) Neut % (Auto) Lymph % (Auto) [place] % (Auto) Eos % (Auto) Baso % (Auto) Absolute Neuts (auto) Absolute Lymphs (auto) Total Counted PT 11.8 INR 0.9 APTT 29.2 Sodium Potassium Chloride Carbon Dioxide Anion Gap BUN Creatinine Estim Creat Clear Calc Est GFR (MDRD) Af Amer Est GFR (MDRD) Non-Af BUN/Creatinine Ratio Glucose Calcium Total Bilirubin Direct Bilirubin AST ALT Alkaline Phosphatase Total Protein Albumin Globulin Urine Opiates Screen NEGATIVE Urine Methadone Screen NEGATIVE Ur Barbiturates Screen NEGATIVE Ur Phencyclidine Scrn NEGATIVE Ur Amphetamines Screen NEGATIVE U Methamphetamin-MDMA NEGATIVE U Benzodiazepines Scrn POSITIVE H Urine Cocaine Screen NEGATIVE U Cannabinoids Screen NEGATIVE Ur Drug Screen Comment Ethyl Alcohol 146.0 POC Glucose Clinical Impression(s) from Imaging Studies Abdomen/Pelvis CT 07/16/18 09:57 IMPRESSION: 1. No solid organ injury, ascites or pneumoperitoneum. 2. Mild hepatic steatosis with borderline hepatomegaly 3. Mild fecal retention. 4. Small fat-containing periumbilical hernia. Electronically Signed: Dakota Benitez MD at 11:03 EST , Service support , Chest CT 07/16/18 09:57 IMPRESSION: No acute traumatic aortic injury, pneumothorax or pleural effusion. No rib fracture identified. Electronically Signed: Dakota Benitez MD at 11:02 EST , Service support , Brain CT 07/16/18 09:58 IMPRESSION: 1. No acute intracranial hemorrhage or mass effect. 2. Old right orbital floor fracture, stable. Electronically Signed: Dakota Benitez MD at 10:57 EST , Service support , Cervical Spine CT 07/16/18 09:58 IMPRESSION: Normal unenhanced CT examination of the cervical spine. Electronically Signed: Dakota Benitez MD at 11:00 EST , Service support , Foot X-Ray 07/16/18 09:58 IMPRESSION: 1. No acute fracture. 2. Postoperative changes similar since prior study. Electronically Signed: Dakota Benitez MD at 10:59 EST , Service support , Medications Given Discontinued Medications Diphtheria/Tetanus/Acell Pertussis (Adacel) 0.5 ml IM .ONCE ONE Stop: 07/16/18 09:57 Last Admin: 07/16/18 10:30 Dose: 0.5 ml Sodium Chloride () 1,000 mls @ 999 mls/hr IV .Q1H1M ONE Stop: 07/16/18 10:56 Last Admin: 07/16/18 10:29 Dose: 999 mls/hr Naproxen (Naprosyn) 500 mg PO X1 ONE Stop: 07/16/18 12:58 Last Admin: 07/16/18 13:01 Dose: 500 mg Emergency Department Course and Treatment: Patient presents with complaint of head injury and right foot pain after stating he fell out of bed and then fell down several steps. At this time he is somnolent with slurred speech and often will not answer questions. He is on zolpidem and benzodiazepines, which is very likely the cause of his somnolence. However because of his altered mental status, trauma workup was performed. Head CT showed no intracranial hemorrhage. C-spine showed no fractures. Chest abdomen pelvis showed no signs of internal trauma. Foot x-ray showed no fracture or dislocation. Patient had an elevated blood alcohol level on workup, consistent with intoxication. Patient received IV fluids. Workup was otherwise unremarkable. On reevaluation patient was talking appropriately and answering questions. He was given naproxen for pain. He did receive an update on his tetanus when he first presented due to the abrasions on his scalp and forehead from apparent hitting his head on a rail of some sort. Mother and patient were comfortable with discharge. Patient discharged home in improved condition. Treatment Plan: [] Disposition: [] Impression: Scalp abrasions, right foot injury, alcohol intoxication This note was generated with [employer] dictation software. It may contain incorrect words, spelling, and punctuation that were not noted in review of the chart prior to signing ED Disposition - Plan for ED Patient: Disposition: Home or Assisted Living Instructions: ED Abrasion, ED Sprain Foot, ED Prevention Fall Referrals: Michele Sheffield MD [Primary Care Provider] - 3-5 Days if not improving Additional Instructions: Use [id number] pain medication as needed for any pain. You have no significant injuries from your fall. You did not require any stitches. Your tetanus was updated. Please talk to your doctor about the medications you take, as they make you more likely to fall. If you have any worsening of your condition or any new concerning symptoms, please return immediately to the emergency department for another evaluation.
[2018-07-16 10:17] LABS: Bedside Glucose 102 mg/dL (70-110)
[2018-07-16 10:29] VITALS: PULSE 86; RESP 20; O2SAT 97
[2018-07-16] MEDS: 0.9% Normal Saline 1,000 ML 999 ML IV (10:29)
[2018-07-16] MEDS: Diphth,Pertuss(Acell),Tet Vac 0.5 ML Vial IM (10:30)
[2018-07-16 10:45] LABS: Absolute Lymphocyte Count 3.24 X10^3/ul (0.83-4.51); Absolute Neutrophil Count 5.1 X10^3/uL (2.0-7.7); Basophil# 0.05 X10^3/uL; Basophil% 0.5 % (0-1); Eosinophil# 0.05 X10^3/uL; Eosinophils% 0.5 % (0-5); Hematocrit 48.4 % (40-54); Hemoglobin 16.4 g/dl (13.0-16.5); Lymphocyte # 3.24 X10^3/ul (4.0); Lymphocyte % 35.3 % (19-41); Mean Corp Hgb Conc 33.9 g/gl (32-36); Mean Corpuscular Hgb 29.7 pg (27.0-32.0); Mean Corpuscular Volume 87.5 fL (80-94); Mean Platelet Vol. 8.8 fl (6.2-12.0); Monocyte# 0.63 X10^3/uL; Monocyte% 6.9 % (0-10); Neutrophil % 55.6 % (47-70); Platelet Count 304 K/mm3 (150-450); RBC Distribution Width CV 13.5 % (11.6-14.6); RBC Distribution Width SD 43.5 fl (35.1-43.9); Red Blood Count 5.53 M/mm3 (4.6-6.2); White Blood Count 9.2 K/mm3 (4.4-11.0)
[2018-07-16 10:48] LABS: POSITIVE COUNT NO; POSITIVE DIFFERENTIAL NO; POSITIVE MORPHOLOGY NO
[2018-07-16 10:49] LABS: International Normalized Ratio 0.9; Prothrombin Time (Protime)PT. 11.8 SECONDS (11.7-14.9)
[2018-07-16 10:51] LABS: Partial Thromboplast Time 29.2 Seconds (24.1-36.2)
[2018-07-16 11:06] LABS: AST(SGOT) 51 U/L (15-37); Alanine Aminotransfer ALT/SGPT 108 U/L (16-61); Albumin, Serum 4.1 g/dL (3.2-5.0); Alkaline Phosphatase 125 U/L (45-117); Anion Gap 9 (5-15); BUN 11 mg/dL (7-18); BUN/Creat Ratio 11.2 RATIO (10-20); Bilirubin, Direct < 0.05 mg/dL (0.00-0.30); Calcium,Total 8.7 mg/dL (8.5-10.1); Chloride 107 mmol/L (98-107); Creatinine, Serum 0.99 mg/dL (0.70-1.30); EST Glomerular Filtration Rate 91 mL/min (>60); Est Glom Filt Rate - Afr Amer 110 mL/min (>60); Estimated Creatinine Clearance 4.05 ml/min; Globulin 3.8 g/dL (2.2-4.2); Glucose 99 mg/dL (74-106); Potassium 3.8 mmol/L (3.5-5.1); Protein, Total 7.9 g/dL (6.4-8.2); Sodium Level 140 mmol/L (136-145)
[2018-07-16 11:53] LABS: Amphetamine Urine VISTA NEGATIVE (<1000 ng/mL); Barbiturate Urine VISTA NEGATIVE (< 200 ng/mL); Benzodiazepine Urine VISTA POSITIVE (< 200 ng/mL); Cocaine Urine VISTA NEGATIVE (< 300 ng/mL); Ecstacy Urine VISTA NEGATIVE (< 500 ng/mL); Methadone Urine VISTA NEGATIVE (< 300 ng/mL); PCP Urine VISTA NEGATIVE (< 25 ng/mL); THC Urine VISTA NEGATIVE (< 50 ng/mL); Vista UDS pH Range 5
--- NOTE | 2018-07-16 12:30 | ED.DEP ---
ED Disposition - Plan for ED Patient: Disposition: Home or Assisted Living Instructions: ED Prevention Fall, ED Abrasion, ED Sprain Foot Referrals: Michele Sheffield MD [Primary Care Provider] - 3-5 Days if not improving Additional Instructions: Use [id number] pain medication as needed for any pain. You have no significant injuries from your fall. You did not require any stitches. Your tetanus was updated. Please talk to your doctor about the medications you take, as they make you more likely to fall. If you have any worsening of your condition or any new concerning symptoms, please return immediately to the emergency department for another evaluation.
[2018-07-16] MEDS: Naproxen 250 MG Tablet 500 MG PO (13:01)
[2018-07-16 13:15] VITALS: BP 134/75; PULSE 78; RESP 14; O2SAT 99
== END 2018-07-16 13:16 | disposition home or self-care (01) ==
PROVIDERS: Emergency Provider Emergency Medicine; Family Provider Family Medicine; PCP Family Medicine
DX: S00.01XA Abrasion of scalp, initial encounter (principal); S99.921A Unspecified injury of right foot, initial encounter; W06.XXXA Fall from bed, initial encounter; W10.9XXA Fall (on) (from) unspecified stairs and steps, initial encounter; Y93.9 Activity, unspecified; Y92.9 Unspecified place or not applicable; F10.129 Alcohol abuse with intoxication, unspecified; Y90.6 Blood alcohol level of 120-199 mg/100 ml; E66.9 Obesity, unspecified
CPT/HCPCS: 70450; 71260; 72125; 73630; 74177; 80048; 80076; 80307; 80320; 82962; 85025; 85610; 85730; 90715; 93005; 96360; 99284; J7030; Q9967; A4216; G0480

== ENCOUNTER 2018-10-17 03:49 | Emergency (ER) | payer MEDICAID, SELFPAY ==
[2018-10-17 03:49] VITALS: BP 125/81; PULSE 109; RESP 16; TEMP 36.7; O2SAT 99; BMI 37.2
--- NOTE | 2018-10-17 04:25 | RAD_ITS ---
HISTORY: Right foot pain. Previous orthopedic fixation of right midfoot fractures COMPARISON: 07/16/2018 FINDINGS: XR right foot 3 views No significant change. Previous fracture with orthopedic plate and screw fixation of the proximal right first through third metatarsals. Orthopedic hardware at the first and second metatarsals has been removed and residual hardware in place at the third metatarsal. Previous fractures of the proximal right first and second metatarsals have healed. 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 The third tarsometatarsal joint shows no solid union and is stable in appearance. Residual portion of a threaded screw spanning the first cuneiform navicular joint. 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 Degenerative arthritis with mild narrowing of the first metatarsophalangeal joint. No acute fracture seen. The plantar arch is maintained. RAD/Foot min 3 Views IMPRESSION: 1. Right midfoot polyarticular ORIF. Stable findings. Surgical ankylosis and chronic posttraumatic osteoarthritis. at 0531 Reported and signed by: Scooter Bai MD Electronically Signed: Scooter Bai, at 5:30 EDT Tel , Service support ,
[2018-10-17] MEDS: morphine 10 MG/ML Syringe IM (04:30)
[2018-10-17] MEDS: Ondansetron ODT 4 MG Tablet PO (04:30)
--- NOTE | 2018-10-17 05:39 | ED.VISSUMM ---
- ER Visit Summary Date of Service: 10/17/18 Chief Complaint: Right foot pain. History of Present Illness: The patient is a 37 M who presents with chronic right foot pain. He has a history of fracture and underwent ORIF about 2 years ago. He does have chronic pain at baseline. However he states someone stepped on his foot yesterday and he has had increased severe pain since that time. He states that he did talk to podiatry who recommended he come to the emergency department for pain management and out of his pain was uncontrolled they would do a block. Physical Examination: Heart rate 109 vitals otherwise unremarkable Regular No respiratory distress Patient has surgical scars over the right foot he does not have any focal tenderness but complains of pain diffusely on palpation he has brisk capillary refill, palpable dorsalis pedis pulse, no soft tissue swelling or ecchymosis. Test Results: Foot x-ray shows postsurgical changes no acute fracture. Emergency Department Course and Treatment: Requesting both oral and IV narcotics. I explained that there is no indication for IV narcotics but would give him intramuscular morphine. He wanted oral oxycodone in addition to this. I explained that giving him IM morphine I did not have an indication to give him oral oxycodone at the same time. On reevaluation although resting comfortably no distress he continues to complain of severe pain. This is chronic pain related to his prior fractures and surgery. I did speak to podiatry auto self service station attendant. She states that she sent him in because he was concerned he may have a refracture and that they could do a block from the clinic not emergently. Patient advised to call the clinic this morning. He was discharged. Treatment Plan: [] Disposition: Discharge Impression: Right foot pain This note was generated with [employer] dictation software. It may contain incorrect words, spelling, and punctuation that were not noted in review of the chart prior to signing ED Disposition - Plan for ED Patient: Referrals: Michele Sheffield MD [Primary Care Provider] -
--- NOTE | 2018-10-17 05:42 | ED.DCSUM_ITS ---
- ER Visit Summary Date of Service: 10/17/18 Chief Complaint: Right foot pain. History of Present Illness: The patient is a 37 M who presents with chronic right foot pain. He has a history of fracture and underwent ORIF about 2 years ago. He does have chronic pain at baseline. However he states someone stepped on his foot yesterday and he has had increased severe pain since that time. He states that he did talk to podiatry who recommended he come to the emergency department for pain management and out of his pain was uncontrolled they would do a block. Physical Examination: Heart rate 109 vitals otherwise unremarkable Regular No respiratory distress Patient has surgical scars over the right foot he does not have any focal tenderness but complains of pain diffusely on palpation he has brisk capillary refill, palpable dorsalis pedis pulse, no soft tissue swelling or ecchymosis. Test Results: Foot x-ray shows postsurgical changes no acute fracture. Emergency Department Course and Treatment: Requesting both oral and IV narcotics. I explained that there is no indication for IV narcotics but would give him intramuscular morphine. He wanted oral oxycodone in addition to this. I explained that giving him IM morphine I did not have an indication to give him oral oxycodone at the same time. On reevaluation although resting comfortably no distress he continues to complain of severe pain. This is chronic pain related to his prior fractures and surgery. I did speak to podiatry hydraulic elevator constructor. She states that she sent him in because he was concerned he may have a refracture and that they could do a block from the clinic not emergently. Patient advised to call the clinic this morning. He was discharged. Treatment Plan: [] Disposition: Discharge Impression: Right foot pain This note was generated with [employer] dictation software. It may contain incorrect words, spelling, and punctuation that were not noted in review of the chart p rior to signing ED Disposition - Plan for ED Patient: Referrals: Michele Sheffield MD [Primary Care Provider] -
--- NOTE | 2018-10-17 05:42 | ED.DEP ---
ED Disposition - Plan for ED Patient: Instructions: ED Chronic Pain Management Referrals: Michele Sheffield MD [Primary Care Provider] - Michele Garcia DPM [STAFF PHYSICIAN] -
[2018-10-17 05:49] VITALS: RESP 17
== END 2018-10-17 05:54 | disposition home or self-care (01) ==
PROVIDERS: Emergency Provider Emergency Medicine; Family Provider Family Medicine; PCP Family Medicine
DX: M79.671 Pain in right foot (principal); G89.29 Other chronic pain; I10 Essential (primary) hypertension; Z79.899 Other long term (current) drug therapy
CPT/HCPCS: 73630; 96372; 99282

== ENCOUNTER 2018-11-17 15:08 | Emergency (ER) | payer MEDICAID, SELFPAY ==
[2018-11-17 15:09] VITALS: BP 117/82; PULSE 80; RESP 18; TEMP 35.8; O2SAT 99; BMI 33.3
[2018-11-17 15:53] VITALS: O2SAT 99
--- NOTE | 2018-11-17 15:56 | CT_ITS ---
STUDY: CT BRAIN WITHOUT CONTRAST REASON FOR EXAM: Male, 38 years old. Fall RADIATION DOSAGE (If Supplied By Facility): DLP = ( 846.73 ) mGycm TECHNIQUE: Transaxial CT imaging of the brain was performed without administration of intravenous contrast material. Individualized dose optimization techniques were used for this CT. COMPARISON: None. FINDINGS: There is no acute bleed or infarct. There are normal white matter tracts. The ventricles are normal in configuration. There is no hydrocephalus. The visualized paranasal sinuses are clear. The mastoid air cells are well aerated. There is no skull fracture. CT/Brain/Head without Contrast IMPRESSION: No acute intracranial abnormality. Electronically Signed: Michele Escobedo, at 17:15 EDT Tel , Service support ,
--- NOTE | 2018-11-17 15:56 | RAD_ITS ---
STUDY: X-RAY - RIGHT FOOT CLINICAL: Male, 38 years old. Fall TECHNIQUE: 3 view(s) of the foot. COMPARISON: None. FINDINGS: Normal talus, calcaneus, and tarsal bones. Normal visualized subtalar, talonavicular, calcaneocuboid, tarsal and tarsometatarsal articulations. Normal metatarsi. Normal metatarsophalangeal joint of the great toe. Normal interphalangeal joint of the great toe. Normal phalanges of the great toe. Normal second through fifth metatarsophalangeal joints. Normal interphalangeal joints and phalanges of the lesser toes. The soft tissue structures are unremarkable. RAD/Foot min 3 Views IMPRESSION: No acute osseous injury. Electronically Signed: Lily Ramey MD at 17:46 EDT Tel , Service support ,
--- NOTE | 2018-11-17 15:56 | CT_ITS ---
STUDY: CT CERVICAL SPINE WITHOUT CONTRAST REASON FOR EXAM: Male, 38 years old. Fall down stairs. RADIATION DOSAGE (If Supplied By Facility): CTDIvol = ( 16.12 ) mGy, DLP = ( 366.13 ) mGycm TECHNIQUE: High resolution transaxial imaging was performed without contrast material. Sagittal and coronal images were reconstructed. Individualized dose optimization techniques were used for this CT. COMPARISON: None FINDINGS: Normal craniovertebral junction. Normal anterior atlantoaxial articulation. Normal odontoid process. There is straightening of the normal cervical lordosis. Normal vertebral bodies and posterior osseous elements. C2-3: Normal endplates. Normal disc height and morphology. Normal central canal and intervertebral neuroforamina. C3-4: Normal endplates. Normal disc height and morphology. Normal central canal and intervertebral neuroforamina. C4-5: Normal endplates. Normal disc height and morphology. Normal central canal and intervertebral neuroforamina. C5-6: Normal endplates. Normal disc height and morphology. Normal central canal and intervertebral neuroforamina. C6-7: Normal endplates. Normal disc height and morphology. Normal central canal and intervertebral neuroforamina. C7-T1: Normal endplates. Normal disc height and morphology. Normal central canal and intervertebral neuroforamina. Normal visualized soft tissue structures. CT/Spine Cervical without Contras IMPRESSION: No acute fracture nor dislocation. Loss of the normal cervical lordosis this may be secondary to positioning and/or muscle spasm. Electronically Signed: Lily Ramey MD at 17:31 EDT Tel , Service support ,
--- NOTE | 2018-11-17 15:56 | RAD_ITS ---
STUDY: X-RAY - THORACIC SPINE REASON FOR EXAM: Male, 38 years old. Fall. Generalized pain. TECHNIQUE: 3 view(s) of the thoracic spine were obtained. COMPARISON: None. FINDINGS: Normal kyphosis of the thoracic spine. There is no substantial scoliosis. Normal thoracic vertebrae and endplates. Normal disc space heights. The soft tissue structures are unremarkable. RAD/Thoracic Spine 3 Views IMPRESSION: Normal x-ray examination of the thoracic spine. Electronically Signed: Lily Ramey MD at 17:49 EDT Tel , Service support ,
--- NOTE | 2018-11-17 15:56 | RAD_ITS ---
STUDY: X-RAY - LUMBAR SPINE REASON FOR EXAM: Male, 38 years old. Fall TECHNIQUE: 3 view(s) of the lumbar spine were obtained. COMPARISON: CT of the abdomen and pelvis dated July 16 and November 17, 2018 FINDINGS: Normal lumbar lordosis. There is no substantial scoliosis. There is a normal alignment of the vertebrae. There is a stable L4 superior endplate compression deformity. Normal disc space heights. There is contrast noted within the collecting systems. RAD/Lumbar Spine 2 or 3 Views IMPRESSION: No acute osseous injury. Electronically Signed: Lily Ramey MD at 17:48 EDT Tel , Service support ,
--- NOTE | 2018-11-17 16:00 | ED.DCSUM_ITS ---
- ER Visit Summary Date of Service: 11/17/18 Chief Complaint: Fall History of Present Illness: The patient is a 38 M presenting after fall. Patient states this occurred yesterday. He states he fell out of bed and then fell down a flight of stairs. He states that his bed is right next to the stairs and he rolled out of bed and then rolled down the stairs. He denies hitting his head or losing consciousness. He is not on anticoagulants. He complains of left arm pain, bilateral foot pain, left ankle pain, back pain. He was advised by his pain management physician to come to the ED for further evaluation. Physical Examination: Vitals are stable. Patient is afebrile. Alert no acute distress. HEENT exam is unremarkable. Neck is nontender Lungs are clear and equal bilaterally. Heart is regular rate and rhythm. Abdomen is soft mild diffuse tenderness with no rebound or guarding Extremities left forearm tenderness, no wrist or elbow tenderness. Left ankle and left midfoot tenderness. Right midfoot tenderness. Normal distal pulses. Skin is warm and dry. Abrasion mid back No focal neurologic deficit. Remainder of exam is unremarkable. Emergency Department Course and Treatment: Patient was given morphine, Zofran IM. CT head and neck show no acute process. CT chest abdomen pelvis show no acute process. Thoracic and lumbar spine x-ray showed no acute process. Bilateral foot, left ankle, left forearm x-ray showed no acute process. Patient was requesting additional pain medication. He was given Dilaudid x1 in the ED. He is advised to follow-up with his pain management physician. Advised to return to ED if worsening complaints. Disposition: Discharge home Impression: Status post fall, back pain, bilateral foot pain, chronic This note was generated with [employer] dictation software. It may contain incorrect words, spelling, and punctuation that were not noted in review of the chart prior to signing ED Disposition - Plan for ED Patient: Referrals: Michele Sheffield MD [Primary Care Provider] -
--- NOTE | 2018-11-17 16:00 | RAD_ITS ---
STUDY: X-RAY - LEFT RADIUS AND ULNA REASON FOR EXAM: Male, 38 years old. Fall TECHNIQUE: 2 view(s) of the forearm. COMPARISON: None. FINDINGS: There is no demonstrated soft tissue swelling. Normal visualized radius. Normal visualized ulna. RAD/Forearm 2 Views IMPRESSION: Normal x-ray examination of the radius and ulna. Electronically Signed: Lily Ramey MD at 17:41 EDT Tel , Service support ,
--- NOTE | 2018-11-17 16:03 | RAD_ITS ---
STUDY: X-RAY - LEFT FOOT CLINICAL: Male, 38 years old. Fall TECHNIQUE: 3 view(s) of the foot. COMPARISON: July 16, 2018 FINDINGS: Normal calcaneus and and tarsal bones. There is a stable screw traversing the navicular bone. There are stable postsurgical changes of the first tarsometatarsal articulations. There are degenerative changes of the metatarsophalangeal joint of the great toe. Normal phalanges of the great toe. There are stable postsurgical changes of the second and third tarsometatarsal. Normal interphalangeal joints and phalanges of the lesser toes. The soft tissue structures are unremarkable. RAD/Foot min 3 Views IMPRESSION: No acute osseous injury. Stable postsurgical changes. Electronically Signed: Lily Ramey MD at 17:45 EDT Tel , Service support ,
[2018-11-17] MEDS: morphine 10 MG/ML Syringe IM (16:11)
[2018-11-17] MEDS: Ondansetron 4 MG/2 ML Vial IM (16:11)
--- NOTE | 2018-11-17 16:16 | CT_ITS ---
STUDY: CT ABDOMEN AND PELVIS WITH CONTRAST REASON FOR EXAM: Male, 38 years old. Fall RADIATION DOSAGE (If Supplied By Facility): DLP = ( 1650.13 ) mGycm TECHNIQUE: Transaxial images were obtained from the dome of the diaphragm to the symphysis pubis without oral contrast. 100ML ml of Isovue 300 contrast was administered. Sagittal and coronal images were reconstructed. Individualized dose optimization techniques were used for this CT. COMPARISON: CT abdomen and pelvis July 16, 2018 FINDINGS: The visualized lung bases are clear. The visualized portions of the heart and pericardium are within normal limits. There are no calcified gallstones present. The liver is within normal limits. There are no suspicious hepatic lesions. The spleen is normal in size. The pancreas is within normal limits. The adrenal glands are within normal limits. There are no obstructing renal stones. There is no hydronephrosis. There are no focal renal lesions. Normal visualized stomach. There is no bowel obstruction or inflammation. The appendix is normal. The aorta is normal in caliber. There is no abdominal or pelvic free air, free fluid, fluid collection or lymphadenopathy. There are no destructive osseous lesions. There is a small fat-containing umbilical hernia. CT/Abdomen/Pelvis W IV Cont ONLY IMPRESSION: No acute abdominal or pelvic pathology. Electronically Signed: Michele Escobedo, at 17:19 EDT Tel , Service support ,
--- NOTE | 2018-11-17 16:16 | CT_ITS ---
STUDY: CT CHEST WITH CONTRAST REASON FOR EXAM: Male, 38 years old. Fall RADIATION DOSAGE (If Supplied By Facility): DLP = ( 986.55 ) mGycm TECHNIQUE: Transaxial imaging was performed following intravenous administration of 100ML ml of Isovue 300 contrast material. Coronal and sagittal reformatted images were created. Individualized dose optimization techniques were used for this CT. COMPARISON: None FINDINGS: There are no pulmonary infiltrates or pleural effusions. There are no pulmonary nodules or masses. There is no pneumothorax. The heart and pericardium are within normal limits. There is no thoracic lymphadenopathy. There is no evidence of thoracic aortic aneurysm. Images through the upper abdomen demonstrate no significant abnormality. There are no destructive osseous lesions. CT/Chest WITH Contrast IMPRESSION: Unremarkable contrast-enhanced CT of the chest. Electronically Signed: Michele Escobedo, at 17:21 EDT Tel , Service support ,
--- NOTE | 2018-11-17 16:17 | ED.RN ---
THIS RN INTO ROOM TO MEDICATE PT. PT STATES YOU KNOW MORPHINE DOES NOT WORK FOR ME. PT STATES I ALWAYS GET DILAUDID WHEN I AM HERE
--- NOTE | 2018-11-17 17:00 | RAD_ITS ---
STUDY: X-RAY - LEFT ANKLE REASON FOR EXAM: Male, 38 years old. Fall. TECHNIQUE: 3 view(s) of the ankle. COMPARISON: None. FINDINGS: Normal visualized distal tibia and fibula. Normal medial and lateral malleoli. Normal tibiotalar articulation and ankle mortise. Normal visualized talus and calcaneus. The visualized subtalar, talonavicular, calcaneocuboid and tarsal articulations are normal. The soft tissue structures are unremarkable. RAD/Ankle min 3 Views IMPRESSION: Normal x-ray examination of the ankle. Electronically Signed: Lily Ramey MD at 17:40 EDT Tel , Service support ,
[2018-11-17 17:36] VITALS: BP 136/98; PULSE 79; RESP 16; O2SAT 98
--- NOTE | 2018-11-17 18:36 | ED.RN ---
PT REUESTING PAIN MEDICATION MULTIPLE TIMES. PT STATES, THE MEDICATION PENNY STARTS WITH A D IS THE ONLY THING THAT WORKS FOR ME, MORPHINE DOESN'T WORK. DR. FLANNERY INFORMED MULTIPLE TIMES OF PT REQUEST FOR PAIN MEDICATION. PT CALLS SEWING DEMONSTRATOR TO REQUEST ADMISSION. DR. FLANNERY AT BEDSIDE TO SPEAK WITH PATIENT ABOUT RESULTS AND PAIN MEDICATION. THIS RN GAVE PT A BLANKET AND ADJUSTED BED TO BE MORE COMFORTABLE FOR PT. NO NEW ORDERS AT THIS TIME. WILL CONTINUE TO MONITOR.
[2018-11-17] MEDS: HYDROmorphone 1 MG/ML Syringe IV (18:44)
--- NOTE | 2018-11-17 19:14 | ED.DEP ---
ED Disposition - Plan for ED Patient: Instructions: ED Mechanical Fall Referrals: Michele Sheffield MD [Primary Care Provider] - Michele Garcia DPM [STAFF PHYSICIAN] -
[2018-11-17 19:34] VITALS: BP 149/79; PULSE 70; RESP 15; O2SAT 97
--- NOTE | 2018-11-17 19:34 | ED.RN ---
PT GIVEN WRITTEN AND VERBAL DISCHARGE INSTRUCTIONS. EDUCATED TO FOLLOW UP WITH PCP AND DR. STOVER. PT VERBALIZES UNDERSTANDING. IV D/C AND COVERED WITH 2X2 GAUZE AND PAPER TAPE.
== END 2018-11-17 19:42 | disposition home or self-care (01) ==
LOC: ED 16:13
PROVIDERS: Emergency Provider Emergency Medicine; Family Provider Family Medicine; PCP Family Medicine
DX: M54.9 Dorsalgia, unspecified (principal); M79.672 Pain in left foot; M79.671 Pain in right foot; G89.29 Other chronic pain; M79.602 Pain in left arm; M25.572 Pain in left ankle and joints of left foot; W06.XXXA Fall from bed, initial encounter; W10.9XXA Fall (on) (from) unspecified stairs and steps, initial encounter; Y93.9 Activity, unspecified; Y92.9 Unspecified place or not applicable; K21.9 Gastro-esophageal reflux disease without esophagitis; F41.9 Anxiety disorder, unspecified; F32.9 Major depressive disorder, single episode, unspecified; M06.9 Rheumatoid arthritis, unspecified; F84.5 Asperger's syndrome; Z79.899 Other long term (current) drug therapy
CPT/HCPCS: 70450; 71260; 72072; 72100; 72125; 73090; 73610; 73630; 74177; 96372; 96374; 99283; Q9967; A4216; J2405

== ENCOUNTER 2019-03-23 16:37 | Emergency (ER) | payer MEDICAID, SELFPAY ==
[2019-03-23 16:38] VITALS: BP 140/79; PULSE 88; RESP 22; TEMP 35.7
[2019-03-23 16:39] VITALS: BP 140/79; PULSE 88; RESP 22; TEMP 35.7; BMI 33.8
--- NOTE | 2019-03-23 17:13 | ED.DCSUM_ITS ---
- ER Visit Summary Date of Service: 03/23/19 Chief Complaint: Anxiety History of Present Illness: The patient is a 38 M who presents with anxiety and panic attack that began today. Patient states he is upset with the [email or web address] company because they were unable to take him to his pain management appointment today. Patient is concerned that he may not receive his pain management treatment. Patient does have a history of anxiety and panic disorder. Patient did not take his Xanax today prior to arrival. Patient denies any suicidal or homicidal ideations. Physical Examination: Vital signs are stable. Patient is afebrile. Patient is in no acute distress. Patient is anxious on examination. Patient is tearful. Patient denies any suicidal or homicidal ideations. Cranial nerves II through XII are intact. Strength is 5/5 bilateral knee upper and lower extremities. There are no apparent sensory deficits noted. Heart was regular rate and rhythm. Lungs are clear and equal bilaterally. Abdomen is soft and nontender. Oral mucosa is pink and moist. Neck is supple. Trachea is midline. There is no JVD noted. Test Results: Patient requested a urine tox screen be done. This was ordered. Patient does not want to wait for results. Patient wants to go home. Emergency Department Course and Treatment: Patient was given a dose of Ativan here. Patient was feeling better on reevaluation. Patient was instructed to follow-up with his primary care physician in 5 to 7 days. Patient was also instructed to follow-up with his pain management physician as scheduled. Patient understood and was agreeable with the plan. All questions were answered. Disposition: Discharge home Impression: 1. Acute anxiety This note was generated with [employer] dictation software. It may contain incorrect words, spelling, and punctuation that were not noted in review of the chart prior to signing ED Disposition - Plan for ED Patient: Disposition: Home or Assisted Living Diagnosis: Acute anxiety Instructions: Panic Attack Referrals: Michele Sheffield MD [NON-STAFF] - 3-5 Days
[2019-03-23] MEDS: LORazepam 0.5 MG Tablet PO (17:29)
[2019-03-23 18:13] LABS: Amphetamine Urine VISTA NEGATIVE (<1000 ng/mL); Barbiturate Urine VISTA NEGATIVE (< 200 ng/mL); Benzodiazepine Urine VISTA POSITIVE (< 200 ng/mL); Cocaine Urine VISTA NEGATIVE (< 300 ng/mL); Ecstacy Urine VISTA NEGATIVE (< 500 ng/mL); Methadone Urine VISTA NEGATIVE (< 300 ng/mL); PCP Urine VISTA NEGATIVE (< 25 ng/mL); THC Urine VISTA NEGATIVE (< 50 ng/mL); Vista UDS pH Range 5
== END 2019-03-23 17:56 | disposition home or self-care (01) ==
PROVIDERS: Emergency Provider Emergency Medicine
DX: F41.0 Panic disorder [episodic paroxysmal anxiety] (principal); I10 Essential (primary) hypertension; K21.9 Gastro-esophageal reflux disease without esophagitis; M79.7 Fibromyalgia; G62.9 Polyneuropathy, unspecified; Z79.899 Other long term (current) drug therapy
CPT/HCPCS: 80307; 99282

== ENCOUNTER → 2019-06-12 16:42 | Outpatient (CLI) | payer MEDICAID, SELFPAY ==
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
== END ==
PROVIDERS: Family Provider Family Medicine; PCP Family Medicine; Referring Provider Podiatrist; Visit Provider Podiatrist
DX: S92.331K Displaced fracture of third metatarsal bone, right foot, subsequent encounter for fracture with nonunion (principal)
CPT/HCPCS: 73700

== ENCOUNTER → 2019-06-16 14:41 | Outpatient (CLI) | payer MEDICAID, SELFPAY ==
[2019-06-16 16:17] LABS: Absolute Lymphocyte Count 2.26 X10^3/uL (0.83-4.51); Absolute Neutrophil Count 4.8 X10^3/uL (2.0-7.7); Basophil# 0.05 X10^3/uL; Basophil% 0.6 % (0-1); Eosinophils% 1.3 % (0-5); Hematocrit 50.1 % (40-54); Hemoglobin 16.2 g/dL (13.0-16.5); Lymphocyte # 2.26 X10^3/ul (4.0); Lymphocyte % 28.6 % (19-41); Mean Corp Hgb Conc 32.3 g/dL (32-36); Mean Corpuscular Hgb 28.4 pg (27.0-32.0); Mean Corpuscular Volume 87.9 fL (80-94); Mean Platelet Vol. 8.4 fl (6.2-12.0); Monocyte# 0.65 X10^3/uL; Monocyte% 8.2 % (0-10); NRBC Flagged by Analyzer 0 % (0-5); Neutrophil # 4.79 X10^3/uL (2.7-7.7); Neutrophil % 60.7 % (47-70); Platelet Count 280 K/mm3 (150-450); RBC Distribution Width CV 14.2 % (11.6-14.6); RBC Distribution Width SD 45.7 fl (35.1-43.9); White Blood Count 7.9 K/mm3 (4.4-11.0)
[2019-06-16 16:41] LABS: ALB/GLOB Ratio 1.1 RATIO (0.9-2.4); AST(SGOT) 20 U/L (15-37); Alanine Aminotransfer ALT/SGPT 60 U/L (16-61); Albumin, Serum 3.9 g/dL (3.2-5.0); Alkaline Phosphatase 83 U/L (45-117); Anion Gap 3 (5-15); BUN 14 mg/dL (7-18); BUN/Creat Ratio 13.5 RATIO (10-20); Calcium,Total 9.1 mg/dL (8.5-10.1); Chloride 105 mmol/L (98-107); Creatinine, Serum 1.04 mg/dL (0.70-1.30); EST Glomerular Filtration Rate 85 mL/min (>60); Est Glom Filt Rate - Afr Amer 103 mL/min (>60); Globulin 3.7 g/dL (2.2-4.2); Glucose 90 mg/dL (74-106); Potassium 3.7 mmol/L (3.5-5.1); Protein, Total 7.6 g/dL (6.4-8.2); Sodium Level 136 mmol/L (136-145)
== END ==
PROVIDERS: Family Provider Family Medicine; PCP Family Medicine; Referring Provider Family Medicine; Visit Provider Family Medicine
DX: Z01.818 Encounter for other preprocedural examination (principal)
CPT/HCPCS: 36415; 80053; 85025

== ENCOUNTER 2019-07-03 13:55 | Inpatient (IN) | payer MEDICAID, SELFPAY ==
[2019-07-03] VITALS (12 sets, daily range): BP systolic 120–141; BP diastolic 70–95; PULSE 60–96; RESP 16; TEMP 36.8–37; O2SAT 92–100; BMI 33.4
--- NOTE | 2019-07-03 10:00 | RAD_ITS ---
STUDY: X-RAY - RIGHT FOOT CLINICAL: Male, 38 years old. FUSION IN O.R. TECHNIQUE: 3 view(s) of the foot. COMPARISON: None. FINDINGS: 3 images were submitted, as radiology support for c-arm imaging in the operating room. This is not a diagnostic examination. Images for documentation purposes only. Fluoroscopy time if reported: 2 minutes 50 seconds. RAD/Foot min 3 Views IMPRESSION: Intraoperative fluoroscopic image guidance. Electronically Signed: Sloane Flores MD at 5:16 EST , Service support ,
--- NOTE | 2019-07-03 10:09 | EKG12_ITS ---
Test Reason : PRE-OP Blood Pressure : / mmHG Vent. Rate : 055 BPM Atrial Rate : 055 BPM P-R Int : 152 ms QRS Dur : 096 ms QT Int : 450 ms P-R-T Axes : 039 054 056 degrees QTc Int : 430 ms Sinus bradycardia with sinus arrhythmia Otherwise normal ECG When compared with ECG of 16-JUL-2018 10:12, Vent. rate has decreased BY 33 BPM Confirmed by DON DIXON, JAMES ([id number]), assistant production editor MIGUEL ARGUELLES ([id number]) on 07/04/2019 12:34:27 PM Referred By: Michele Garcia Confirmed By:JAMES OCHOA MD
[2019-07-03] MEDS: Lactated Ringers 1,000 ML 100 ML IV ×2 (10:14→16:22)
--- NOTE | 2019-07-03 11:00 | BON_PTH ---
PATIENT: ROBERT BRADFORD LOC: [facility]3 U#:[id number] AGE/SX: 38/M ROOM: [facility]316 RE07/03/[address]: Dr. Luma Ngo MD : 1980 BED: 1 DIS: 07/05/2019 SPEC #: [id number] RECD: 07/03/19 16:14 STATUS: JANIE REGen #: [id number] ALEX: 07/03/19 11:[address]: Michele Garcia DEPT: SURGICAL PATHOLOGY RECD BY: Omar Winter ENTERED: 07/04/19 09:50 SP TYPE: Bone OTHR DR: MD Dr. Michele Amado MD Dr. Prakash Chand, MD Tissues: Bone of foot, NOS Procedures: Decalcification bone/plaque Surgery Specimen Level IV HEADER OPERATION: Revision arthrodesis/fusion of third metatarsal PRE-OP DIAGNOSIS: Nonunion of third tarsometatarsal joint TISSUE SUBMITTED: Third tarsometatarsal joint nonunion MICROSCOPIC DIAGNOSIS Tarsometatarsal joint nonunion, biopsy: Fragments of hyaline cartilage and bone with reparative and reactive change. POONAM:alex 07/07/19 MICROSCOPIC DESCRIPTION Slides are reviewed. GROSS DESCRIPTION Received in fixative is one container labeled with the patient's name and designated third tarsometatarsal joint nonunion. The specimen consists of multiple fragments of bone that in aggregate measure 2 x 1.5 x 0.3 cm. The specimen is totally submitted in one cassette after decalcification. / SJ:alex 07/04/19 TC:5 CPT: 61513, 49581
[2019-07-03] MEDS: Cefazolin 2 GM in 0.9% Normal Saline 100 ML IV (11:18)
[2019-07-03] MEDS: Bupivacaine Mpf 0.5% 30 ML VIAL (13:30)
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
--- NOTE | 2019-07-03 14:00 | RAD_ITS ---
STUDY: X-RAY - RIGHT FOOT CLINICAL: Male, 38 years old. POST OP RIGHT REVISION ARTHRODESIS AND FUSION OF 3RD METATARSAL. TECHNIQUE: 3 view(s) of the foot. COMPARISON: 11/17/2018 FINDINGS: Normal talus, calcaneus, and tarsal bones. There are bony defects consistent with previous orthopedic hardware. Arthrodeses of the first and second tarsalmetatarsal joint with a sideplate spanning the cuneiform to proximal third metatarsal, stable Screw spanning the first cuneiform and navicular joint. There is no solid bone fusion. Normal visualized subtalar, talonavicular, calcaneocuboid articulations. Stable deformity proximal first and second metatarsal base. Normal metatarsophalangeal joint of the great toe. Normal tibial and fibular sesamoid bones. Normal interphalangeal joint of the great toe. Normal phalanges of the great toe. Normal second through fifth metatarsophalangeal joints. Normal interphalangeal joints and phalanges of the lesser toes. RAD/Foot min 3 Views IMPRESSION: Interval change of sideplate involving the third ray with solid fusion of the first and second tarsometatarsal joint. Electronically Signed: Sloane Flores MD at 4:26 EST , Service support ,
[2019-07-03] MEDS: HYDROmorphone 1 MG/ML Syringe 2 MG IV ×4 (16:23→23:36)
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
[2019-07-03] MEDS: Pregabalin 75 MG Capsule PO (18:48)
[2019-07-03] MEDS: 0.9% Saline Lock 10 ML Syringe IV (20:46)
[2019-07-04] VITALS (7 sets, daily range): BP systolic 121–155; BP diastolic 56–101; PULSE 60–91; RESP 16; TEMP 36.4–36.9; O2SAT 94–98
[2019-07-04] MEDS: ALPRAZolam 0.5 MG Tablet 4 MG PO (01:04)
[2019-07-04] MEDS: Zolpidem Tartrate 5 MG Tablet PO (01:04)
[2019-07-04] MEDS: Pantoprazole Sodium 20 MG Tablet PO ×2 (01:06→21:17)
[2019-07-04] MEDS: Metoprolol(XL)Succ 50 MG Tablet PO ×2 (01:07→21:17)
[2019-07-04] MEDS: Amitriptyline 10 MG Tablet 30 MG PO (01:09)
[2019-07-04] MEDS: PARoxetine 10 MG Tablet 30 MG PO (01:10)
[2019-07-04] MEDS: Ketorolac 30 MG/ML Syringe IM ×3 (01:10→17:56)
[2019-07-04] MEDS: HYDROmorphone 1 MG/ML Syringe 2 MG IV ×7 (01:56→21:48)
[2019-07-04] MEDS: 0.9% Saline Lock 10 ML Syringe IV ×6 (01:56→19:37)
--- NOTE | 2019-07-04 06:53 | PCM.PN.HOSP ---
Subjective: Patient overnight with pain difficulty to the right ankle, sharp and dull aching, 10 out of 10 previously, now 8 out of 10, and reportedly contacted the veneer slicing machine operator himself and requested that Dr. Garcia be paged to his phone without notifying the veneer slicing machine operator that he was actually a patient. Discussed at length with patient assurance that he has updated pain management that he is currently in the hospital and receiving acute regimen in addition to his chronic. Patient demanding several agents and discussed that this would be something he would need to discuss with Dr. tomlin as he is managing his pain currently. Patient also noted some mild hesitancy and requested back his Cialis. Objective: Physical Examination: General: awake, alert, oriented x 3 and cooperative, in the MedSur bed, does not appear in any market discomfort at this time, previously irritable with staff, improved now. Skin: normal color, turgor, no icterus, cyanosis except noted right ankle in dressing and elevated with no obvious discharge or drainage. HEENT: AT/NC, EOMI, PERRLA, MMM. Lungs: CTA bilaterally, moderate effort, mild decrease BL bases, no rales, ronchi or wheezing. Heart: Regular rate and rhythm; no gallop, rub audible. Abdomen: soft, obese, NTTP, ND, mildly hyperactive bowel sounds. Extremities: no cyanosis, clubbing, status post surgical intervention to right ankle, dressed, elevated, no obvious drainage. Neurological: patient awake, alert, oriented x 3; cognitive function intact; pupils equally reactive to light and accomodation; cranial nerves II-XII grossly normal, moving all 4 extremities although very limited right lower extremity given recent operative intervention and significant pain, strength accordingly moderately to severely globally decreased. Psychiatric: affect appears more calm now but have been irritable, no acute evidence of depressive or anxiety feelings. Vitals/I&O's: Vital Signs Temp Pulse Resp BP Pulse Ox 98 F 91 16 129/91 H 94 07/04/19 01:07 07/04/19 01:07 07/04/19 01:07 07/04/19 01:07 07/04/19 01:07 Oxygen Delivery Method Room Air Weight: 260 lb 9.382 oz Body Mass Index (BMI) 33.4 Finger Stick Blood Glucose 102 Intake and Output for Last 24 Hours 07/02/19 07/03/19 07/04/19 23:59 23:59 23:59 Intake Total 723.33 / 1323.33 2400 / 2400 Output Total 650 / 1225 2225 / 2225 Balance 73.33 / 98.33 175 / 175 Current Medications Acetaminophen (Tylenol) 650 mg PO Q6H PRN PRN PRN Reason: Pain Score 1-10/10 Alprazolam (Xanax) 4 mg PO QHS [facility] Last Admin: 07/04/19 01:04 Dose: 4 mg Documented by: Alprazolam (Xanax) 1 mg PO BID@0800,1700 [facility] Amitriptyline HCl (Elavil) 30 mg PO QHS [facility] Last Admin: 07/04/19 01:09 Dose: 30 mg Documented by: Cyclobenzaprine HCl (Flexeril) 10 mg PO BID PRN PRN PRN Reason: muscle spasms Duloxetine HCl (Cymbalta) 30 mg PO QHS PRN PRN Reason: Pain or Fever Enoxaparin Sodium (Lovenox) 40 mg SC DAILY@0600 [facility] Hydromorphone HCl (Dilaudid Inj) 2 mg IV Q2H PRN PRN PRN Reason: Pain Score 6-10/10 Last Admin: 07/04/19 04:20 Dose: 2 mg Documented by: Lactated Ringer's () 1,000 mls @ 100 mls/hr IV .Q10H [facility] Last Infusion: 07/04/19 04:20 Dose: Infused Documented by: Sodium Chloride () 250 mls @ 15 mls/hr IV .[id number] PRN PRN Reason: Saline Flush Sodium Chloride () 250 mls @ 15 mls/hr IV .[id number] PRN PRN Reason: Additional IVPB Infusion Naloxone HCl 4 mg/ Dextrose 504 mls @ 0 mls/hr IV .Q0M PRN; Protocol PRN Reason: To maintain Resp. rate >10 Ketorolac Tromethamine (Toradol) 30 mg IM Q6H PRN PRN PRN Reason: Pain Score 1-10/10 Stop: 07/08/19 15:01 Last Admin: 07/04/19 01:10 Dose: 30 mg Documented by: Metoprolol Succinate (Toprol Xl (Beta Kelsie)) 50 mg PO QHS [facility] Last Admin: 07/04/19 01:07 Dose: 50 mg Documented by: Naloxone HCl (Narcan) 0.02 mg IV Q1M PRN PRN Reason: RR <10 and pt unresponsive Ondansetron HCl (Zofran) 4 mg IV Q8H PRN PRN PRN Reason: Nausea Pantoprazole Sodium (Protonix) 20 mg PO QHS [facility] Last Admin: 07/04/19 01:06 Dose: 20 mg Documented by: Paroxetine HCl (Paxil) 30 mg PO QHS [facility] Last Admin: 07/04/19 01:10 Dose: 30 mg Documented by: Pregabalin (Lyrica) 75 mg PO BID PRN PRN PRN Reason: nerve pain Last Admin: 07/03/19 18:48 Dose: 75 mg Documented by: Senna/Docusate Sodium (Senokot-S, Kayleigh-Colace) 1 tablet PO BID PRN PRN PRN Reason: Constipation Sodium Chloride () 10 - 40 ml IV UD PRN PRN Reason: SALINE FLUSH Last Admin: 07/04/19 04:20 Dose: 10 ml Documented by: Zolpidem Tartrate (Ambien (Generic)) 5 mg PO QHS PRN PRN Reason: INSOMNIA Last Admin: 07/04/19 01:04 Dose: 5 mg Documented by: Medical Necessity - Tobacco Use Smoking Status: Never smoker Tobacco Use: Non-smoker Assessment/Plan All Active Problems (Last Updated 08/24/17 @ 15:36 by Ana Felix) Painful retained right foot hardware (Acute) Rheumatoid arthritis (Acute) Inadequate pain control (Acute) The patient is a 38 y/o M w/ PMHx: HTN, GERD, DDD w/ radiculopathy w/ Chronic Pain, Fibromyalgia, Anxiety and Depression/Insomnia, Rheumatoid Arthritis off biologics secondary to finances who presents to the [facility] on 07/03/19 for planned surgical revision 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 Garcia. 1. 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 Garcia for planned revision arthrodesis/fusion of the 3rd metatarsal cuneiform joint with havest and placement of bone graft, right foot, post-operative pain management, weight bearing status, bowel regimen, DVT Prophylaxis, PT/OT/CM per Orthopedic surgery discretion. Patient with still significant pain to the right ankle, discussed with Dr. Garcia previously and he noted intention to manage pain therefore told patient alterations would need to happen with primary service. 2. Rheumatoid Arthritis: Not on any DMARDs, biological regimen secondary to patient insurance/financial issues, CM may be consulted to assist per primary discretion. 3. Chronic Pain Syndrome/Fibromyalgia/DDD w/ radiculopathy: Following with pain management in [place], will continue Lyrica, Cymbalta, Flexeril with oral and IV narcotic breakthrough with recommended patient discussion with primary pain management physician to update on current presentation. 4. Anxiety and Depression: We will continue patient home Cymbalta, Xanax, nightly Ativan. Of note patient also on Paxil in addition, patient would benefit from avoidance of dual agents given already using Cymbalta will defer to outpatient given significant history. 5. Hypertension: We will continue patient home metoprolol, may alter as needed, may add PRN hydralazine if necessary. 6. GERD: Continue home PPI. 7. BPH: We will add back daily scheduled Cialis. 8. DVT prophylaxis: SCDs, Lovenox per primary service discretion. Code Visit Inpatient E&M: 70757 Subs Hosp L2
[2019-07-04] MEDS: ALPRAZolam 0.5 MG Tablet 1 MG PO ×2 (07:35→16:07)
[2019-07-04] MEDS: Enoxaparin 40 MG/0.4 ML Syringe SC (07:35)
[2019-07-04 09:26] LABS: Absolute Lymphocyte Count 2.57 X10^3/uL (0.83-4.51); Absolute Neutrophil Count 6.8 X10^3/uL (2.0-7.7); Basophil# 0.02 X10^3/uL; Basophil% 0.2 % (0-1); Eosinophil# 0.06 X10^3/uL; Eosinophils% 0.6 % (0-5); Hematocrit 41.6 % (40-54); Hemoglobin 13.8 g/dL (13.0-16.5); Lymphocyte # 2.57 X10^3/ul (4.0); Mean Corp Hgb Conc 33.2 g/dL (32-36); Mean Corpuscular Hgb 29.4 pg (27.0-32.0); Mean Corpuscular Volume 88.7 fL (80-94); Mean Platelet Vol. 8.8 fl (6.2-12.0); Monocyte# 0.83 X10^3/uL; Monocyte% 8.1 % (0-10); NRBC Flagged by Analyzer 0 % (0-5); Neutrophil # 6.76 X10^3/uL (2.7-7.7); Neutrophil % 65.8 % (47-70); Platelet Count 186 K/mm3 (150-450); RBC Distribution Width CV 13.7 % (11.6-14.6); RBC Distribution Width SD 44.3 fl (35.1-43.9); Red Blood Count 4.69 M/mm3 (4.6-6.2); White Blood Count 10.3 K/mm3 (4.4-11.0)
[2019-07-04 09:48] LABS: Anion Gap 3 (5-15); BUN 17 mg/dL (7-18); BUN/Creat Ratio 16.7 RATIO (10-20); Calcium,Total 8.7 mg/dL (8.5-10.1); Chloride 103 mmol/L (98-107); Creatinine, Serum 1.02 mg/dL (0.70-1.30); EST Glomerular Filtration Rate 87 mL/min (>60); Est Glom Filt Rate - Afr Amer 105 mL/min (>60); Estimated Creatinine Clearance 115.29 ml/min; Glucose 120 mg/dL (74-106); Potassium 3.7 mmol/L (3.5-5.1); Sodium Level 135 mmol/L (136-145)
--- NOTE | 2019-07-04 10:44 | CASEMGMT ---
RN CM Assessment Note Presentation: Revision 3rd tarsometatarsal arthrodesis w/removal of hardware and placement of new hardware. Intro role of CM and purpose of RN CM assessment to patient in room. Demographics, PCP and Pharmacy verified. Pt plans to return home on dc. Lives with his mother; states he is independent with ADL's. PCP: Dr. Michele Sheffield Specialists: Dr. Garcia Preferred Pharmacy: [facility] retail Insurance: [employer] Prescription Benefit: yes LNOK: alicia Sheffield Living Arrangements: Lives in two story home with his mother. Bedroom is upstairs, pt states he scoots up and down stairs without weight bearing, Pt states he has had crutches in past and would like to return home on crutches. Call to PT- states they used walker today for stability, and can crutch walk teach pt for home. If pt does need walker, advised him to first have someone look at home for his walker, and if not found, may need to attempt to order new one. Pt does not know which DME company he used. List reviewed and pt would like [employer] for supplies. Transportation: Pt uses [employer] for transportation. RN MINH called to [facility] transportation dept and they will transport to Dr. Garcia's office. Pt given transportation brochure and notified to call in advance if ride needed to office for f/u. DME: cane. HHC/SNF: none Patient DC goals: home DC PLAN: Anticipate home with crutches. Anabel COOPER RN ACM
[2019-07-04] MEDS: Pregabalin 75 MG Capsule PO ×2 (11:06→21:18)
[2019-07-04] MEDS: Gabapentin 300 MG Capsule PO ×2 (12:39→16:07)
[2019-07-04] MEDS: Senna/Docusate Sodium 1 Tablet PO ×2 (12:39→21:16)
[2019-07-04] MEDS: cycloBENZAPRine HCl 10 MG Tablet PO (17:56)
--- NOTE | 2019-07-04 18:20 | PN_ITS ---
Subjective: Patient was seen today for follow up on right foot surgery. He relates there is throbbing pain. He is requesting oxycodone. He is also asking about another nerve block. He relates to chronic back pain. He has no other complaints. No complaints of fever, chills, nausea, vomiting, shortness of breath, chest pain or calf pain. - Physical Exam Vitals/I&O's: Vital Signs Temp Pulse Resp BP Pulse Ox 97.6 F L 72 16 145/80 H 97 07/04/19 16:16 07/04/19 16:16 07/04/19 16:16 07/04/19 16:16 07/04/19 16:16 Oxygen Delivery Method Room Air Weight: 118.2 kg Body Mass Index (BMI) 33.4 Finger Stick Blood Glucose 102 Intake and Output for Last 24 Hours 07/02/19 07/03/19 07/04/19 23:59 23:59 23:59 Intake Total 723.33 / 1323.33 3250 / 3250 Output Total 650 / 1225 3325 / 3325 Balance 73.33 / 98.33 -75 / -75 General: Alert, Oriented x3, Cooperative, No apparent distress Extremities: Capillary Refill Less than 3 Seconds, No Calf Tenderness, - - Dressing right foot is clean, dry and intact. CFT < 2 seconds to all toes on right foot, no evidence of infection, DVT or complication at this time. Psych/Mental Status: Alert and oriented to time, place, person, mood and affect - He is resting in bed with right foot elevated on pillows. Laboratory Results 07/04/19 09:10: WBC 10.3, RBC 4.69, Hgb 13.8, Hct 41.6, MCV 88.7, MCH 29.4, MCHC 33.2, RDW Std Deviation 44.3 H, RDW Coeff of Jelani 13.7, Plt Count 186, MPV 8.8, Immature Gran % (Auto) 0.300, Neut % (Auto) 65.8, Lymph % (Auto) 25.0, [place] % (Auto) 8.1, Eos % (Auto) 0.6, Baso % (Auto) 0.2, Absolute Neuts (auto) 6.8, Absolute Lymphs (auto) 2.57, Nucleated RBC % 0 07/04/19 09:10: Sodium 135 L, Potassium 3.7, Chloride 103, Carbon Dioxide 29.0, Anion Gap 3 L, BUN 17, Creatinine 1.02, Estim Creat Clear Calc 115.29, Est GFR (MDRD) Af Amer 105, Est GFR (MDRD) Non-Af 87, BUN/Creatinine Ratio 16.7, Glucose 120 H, Calcium 8.7 Current Medications Acetaminophen (Tylenol) 650 mg PO Q6H PRN PRN PRN Reason: Pain Score 1-10/10 Alprazolam (Xanax) 4 mg PO QHS [facility] Last Admin: 07/04/19 01:04 Dose: 4 mg Documented by: Alprazolam (Xanax) 1 mg PO BID@0800,1700 [facility] Last Admin: 07/04/19 16:07 Dose: 1 mg Documented by: Amitriptyline HCl (Elavil) 30 mg PO QHS [facility] Last Admin: 07/04/19 01:09 Dose: 30 mg Documented by: Cyclobenzaprine HCl (Flexeril) 10 mg PO BID PRN PRN PRN Reason: muscle spasms Last Admin: 07/04/19 17:56 Dose: 10 mg Documented by: Duloxetine HCl (Cymbalta) 30 mg PO QHS PRN PRN Reason: Pain or Fever Enoxaparin Sodium (Lovenox) 40 mg SC DAILY@0600 [facility] Last Admin: 07/04/19 07:35 Dose: 40 mg Documented by: Gabapentin (Neurontin) 300 mg PO TIDCM [facility] Last Admin: 07/04/19 16:07 Dose: 300 mg Documented by: Hydrocortisone Acetate (Anusol Hc) 25 mg RECTAL BID PRN PRN PRN Reason: hemorrhoidal pain Hydromorphone HCl (Dilaudid Inj) 2 mg IV Q2H PRN PRN PRN Reason: Pain Score 6-10/10 Last Admin: 07/04/19 16:07 Dose: 2 mg Documented by: Sodium Chloride () 250 mls @ 15 mls/hr IV .[id number] PRN PRN Reason: Saline Flush Sodium Chloride () 250 mls @ 15 mls/hr IV .[id number] PRN PRN Reason: Additional IVPB Infusion Naloxone HCl 4 mg/ Dextrose 504 mls @ 0 mls/hr IV .Q0M PRN; Protocol PRN Reason: To maintain Resp. rate >10 Ketorolac Tromethamine (Toradol) 30 mg IM Q12H PRN PRN PRN Reason: Pain Score 1-10/10 Stop: 07/09/19 18:19 Metoprolol Succinate (Toprol Xl (Beta Kelsie)) 50 mg PO QHS [facility] Last Admin: 07/04/19 01:07 Dose: 50 mg Documented by: Naloxone HCl (Narcan) 0.02 mg IV Q1M PRN PRN Reason: RR <10 and pt unresponsive Non-Formulary Medication (Cialas) 5 mg PO QHS [facility] Ondansetron HCl (Zofran) 4 mg IV Q8H PRN PRN PRN Reason: Nausea Pantoprazole Sodium (Protonix) 20 mg PO QHS [facility] Last Admin: 07/04/19 01:06 Dose: 20 mg Documented by: Paroxetine HCl (Paxil) 30 mg PO QHS [facility] Last Admin: 07/04/19 01:10 Dose: 30 mg Documented by: Pregabalin (Lyrica) 75 mg PO BID PRN PRN PRN Reason: nerve pain Last Admin: 07/04/19 11:06 Dose: 75 mg Documented by: Senna/Docusate Sodium (Senokot-S, Kayleigh-Colace) 1 tablet PO BID PRN PRN PRN Reason: Constipation Last Admin: 07/04/19 12:39 Dose: 1 tablet Documented by: Sodium Chloride () 10 - 40 ml IV UD PRN PRN Reason: SALINE FLUSH Last Admin: 07/04/19 16:08 Dose: 10 ml Documented by: Zolpidem Tartrate (Ambien (Generic)) 5 mg PO QHS PRN PRN Reason: INSOMNIA Last Admin: 07/04/19 01:04 Dose: 5 mg Documented by: Medical Necessity - Tobacco Use Smoking Status: Never smoker Tobacco Use: Non-smoker Assessment/Plan All Active Problems (Last Updated 08/24/17 @ 15:36 by Ana Felix) Painful retained right foot hardware (Acute) Rheumatoid arthritis (Acute) Inadequate pain control (Acute) s/p revision arthrodesis of 3rd tarsometatarsal fusion with grafting on 07/03/2019 Post op pain control which consists of Dilaudid, Acetaminophen, Toradol, and Flexeril - advised patient we will not add oxycodone with Dilaudid, explained rationale and concern of excessive use of narcotics/pain medication. Patient follows with Dr. Garcia, pain management - per pre op communication with Dr. Jose Campos for 2 weeks post op and hold oxycodone during this time. Advised patient it is normal to have post op pain and at this time nothing appears out of the ordinary. Discussed concern for pain medication seeking behavior with patient. We will consider another nerve block tomorrow as this is completed by anesthesia service and they are gone for today. Patient agreed. No weightbearing right foot, keep right foot elevated at all times. DVT Prophylaxis: Lovenox 40mg subcutaneous starting 07/04/2019. Other medical problems: Medicine team has been consulted - greatly appreciate assistance.
[2019-07-05] MEDS: HYDROmorphone 1 MG/ML Syringe 2 MG IV ×4 (00:21→06:45)
[2019-07-05] MEDS: 0.9% Saline Lock 10 ML Syringe IV ×3 (00:21→04:43)
[2019-07-05] MEDS: PARoxetine 10 MG Tablet 30 MG PO (01:21)
[2019-07-05] MEDS: Amitriptyline 10 MG Tablet 30 MG PO (01:21)
[2019-07-05] MEDS: Zolpidem Tartrate 5 MG Tablet PO (01:25)
[2019-07-05] MEDS: ALPRAZolam 0.5 MG Tablet 4 MG PO (01:26)
[2019-07-05] MEDS: TADALAFIL 5 MG TABLET PO (01:27)
[2019-07-05 02:40] VITALS: BP 158/104; PULSE 65; RESP 16; TEMP 36.5; O2SAT 100
[2019-07-05] MEDS: Enoxaparin 40 MG/0.4 ML Syringe SC (06:44)
[2019-07-05 07:51] VITALS: O2SAT 98
--- NOTE | 2019-07-05 08:18 | PCM.PN.HOSP ---
Subjective: Patient this a.m. very lethargic, fatigue, no acute complaints at this time but recent sedated medications likely responsible for current presentation. Patient per discussion with nursing staff continues to aspirate pain medication and was relating that he would need to stay at least until Wednesday prior to discharge but discussed at length that plan of care would be to attempt to obtain block today and following this patient will be discharged to home. Did state that patient would be discharged to home on his current recommended medications per his pain management physician which would not include gabapentin especially given following this he has been more sedate and lethargic. Patient denies fevers, chills, nausea, emesis, abdominal pain, chest pain or dyspnea. Objective: Physical Examination: General: Awakens to some stimuli, fatigued, lethargic, recent sedated pain medication administration, no acute obvious distress but per nursing staff reportedly has been intermittently asking frequently for narcotic therapy. Skin: normal color, turgor, no icterus, cyanosis except noted right ankle in dressing and elevated with no obvious discharge or drainage. HEENT: AT/NC, EOMI, PERRLA, MMM. Lungs: CTA bilaterally, decreased effort given lethargy, mild decrease BL bases, no rales, ronchi or wheezing. Heart: Regular rate and rhythm; no gallop, rub audible. Abdomen: soft, obese, NTTP, ND, normal bowel sounds. Extremities: no cyanosis, clubbing, status post surgical intervention to right ankle, dressed, elevated, no obvious drainage. Neurological: Awakens to some stimuli, fatigued, lethargic, recent sedated pain medication administration, no acute obvious distress but per nursing staff reportedly has been intermittently asking frequently for narcotic therapy; cognitive function he is from baseline secondary to recent sedated regimen; pupils equally reactive to light and accomodation; cranial nerves II-XII grossly normal, moving all 4 extremities although very limited right lower extremity given recent operative intervention and lethargy given sedated regimen. Psychiatric: affect appears calm, sedate secondary to recent sedated regimen, no acute evidence of depressive or anxiety feelings. Vitals/I&O's: Vital Signs Temp Pulse Resp BP Pulse Ox 97.7 F L 65 16 158/104 H 98 07/05/19 02:40 07/05/19 02:40 07/05/19 02:40 07/05/19 02:40 07/05/19 07:51 Oxygen Delivery Method Room Air Weight: 260 lb 9.382 oz Body Mass Index (BMI) 33.4 Finger Stick Blood Glucose 102 Intake and Output for Last 24 Hours 07/03/19 07/04/19 07/05/19 23:59 23:59 23:59 Intake Total 723.33 / 1323.33 3250 / 3250 600 / 600 Output Total 650 / 1225 3325 / 3325 1500 / 1500 Balance 73.33 / 98.33 -75 / -75 -900 / -900 Laboratory Results 07/04/19 09:10: WBC 10.3, RBC 4.69, Hgb 13.8, Hct 41.6, MCV 88.7, MCH 29.4, MCHC 33.2, RDW Std Deviation 44.3 H, RDW Coeff of Jelani 13.7, Plt Count 186, MPV 8.8, Immature Gran % (Auto) 0.300, Neut % (Auto) 65.8, Lymph % (Auto) 25.0, [place] % (Auto) 8.1, Eos % (Auto) 0.6, Baso % (Auto) 0.2, Absolute Neuts (auto) 6.8, Absolute Lymphs (auto) 2.57, Nucleated RBC % 0 07/04/19 09:10: Sodium 135 L, Potassium 3.7, Chloride 103, Carbon Dioxide 29.0, Anion Gap 3 L, BUN 17, Creatinine 1.02, Estim Creat Clear Calc 115.29, Est GFR (MDRD) Af Amer 105, Est GFR (MDRD) Non-Af 87, BUN/Creatinine Ratio 16.7, Glucose 120 H, Calcium 8.7 Current Medications Acetaminophen (Tylenol) 650 mg PO Q6H PRN PRN PRN Reason: Pain Score 1-10/10 Alprazolam (Xanax) 4 mg PO QHS [facility] Last Admin: 07/05/19 01:26 Dose: 4 mg Documented by: Alprazolam (Xanax) 1 mg PO BID@0800,1700 [facility] Last Admin: 07/04/19 16:07 Dose: 1 mg Documented by: Amitriptyline HCl (Elavil) 30 mg PO QHS [facility] Last Admin: 07/05/19 01:21 Dose: 30 mg Documented by: Cyclobenzaprine HCl (Flexeril) 10 mg PO BID PRN PRN PRN Reason: muscle spasms Last Admin: 07/04/19 17:56 Dose: 10 mg Documented by: Duloxetine HCl (Cymbalta) 30 mg PO QHS PRN PRN Reason: Pain or Fever Enoxaparin Sodium (Lovenox) 40 mg SC DAILY@0600 [facility] Last Admin: 07/05/19 06:44 Dose: 40 mg Documented by: Gabapentin (Neurontin) 300 mg PO TIDCM [facility] Last Admin: 07/04/19 16:07 Dose: 300 mg Documented by: Hydrocortisone Acetate (Anusol Hc) 25 mg RECTAL BID PRN PRN PRN Reason: hemorrhoidal pain Hydromorphone HCl (Dilaudid Inj) 2 mg IV Q2H PRN PRN PRN Reason: Pain Score 6-10/10 Last Admin: 07/05/19 06:45 Dose: 2 mg Documented by: Sodium Chloride () 250 mls @ 15 mls/hr IV .[id number] PRN PRN Reason: Saline Flush Sodium Chloride () 250 mls @ 15 mls/hr IV .[id number] PRN PRN Reason: Additional IVPB Infusion Naloxone HCl 4 mg/ Dextrose 504 mls @ 0 mls/hr IV .Q0M PRN; Protocol PRN Reason: To maintain Resp. rate >10 Ketorolac Tromethamine (Toradol) 30 mg IM Q12H PRN PRN PRN Reason: Pain Score 1-10/10 Stop: 07/10/19 06:01 Metoprolol Succinate (Toprol Xl (Beta Kelsie)) 50 mg PO QHS [facility] Last Admin: 07/04/19 21:17 Dose: 50 mg Documented by: Naloxone HCl (Narcan) 0.02 mg IV Q1M PRN PRN Reason: RR <10 and pt unresponsive Ondansetron HCl (Zofran) 4 mg IV Q8H PRN PRN PRN Reason: Nausea [facility] Last Admin: 07/04/19 21:17 Dose: 20 mg Documented by: Paroxetine HCl (Paxil) 30 mg PO QHS [facility] Last Admin: 07/05/19 01:21 Dose: 30 mg Documented by: Pregabalin (Lyrica) 75 mg PO BID PRN PRN PRN Reason: nerve pain Last Admin: 07/04/19 21:18 Dose: 75 mg Documented by: Senna/Docusate Sodium (Senokot-S, Kayleigh-Colace) 1 tablet PO BID PRN PRN PRN Reason: Constipation Last Admin: 07/04/19 21:16 Dose: 1 tablet Documented by: Sodium Chloride () 10 - 40 ml IV UD PRN PRN Reason: SALINE FLUSH Last Admin: 07/05/19 04:43 Dose: 20 ml Documented by: Tadalafil (Cialis) 5 mg PO QHS [facility] Last Admin: 07/05/19 01:27 Dose: 5 mg Documented by: Zolpidem Tartrate (Ambien (Generic)) 5 mg PO QHS PRN PRN Reason: INSOMNIA Last Admin: 07/05/19 01:25 Dose: 5 mg Documented by: STROKE Vital Signs/Narrative: Vital Signs Pulse Ox 07/05/19 07:51 98 Medical Necessity - Tobacco Use Smoking Status: Never smoker Tobacco Use: Non-smoker Assessment/Plan All Active Problems (Last Updated 08/24/17 @ 15:36 by Ana Felix) Painful retained right foot hardware (Acute) Rheumatoid arthritis (Acute) Inadequate pain control (Acute) The patient is a 38 y/o M w/ PMHx: HTN, GERD, DDD w/ radiculopathy w/ Chronic Pain, Fibromyalgia, Anxiety and Depression/Insomnia, Rheumatoid Arthritis off biologics secondary to finances who presents to the [facility] on 07/03/19 for planned surgical revision 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 Garcia. 1. 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 Garcia for planned revision arthrodesis/fusion of the 3rd metatarsal cuneiform joint with havest and placement of bone graft, right foot, post-operative pain management, weight bearing status, bowel regimen, DVT Prophylaxis, PT/OT/CM per Orthopedic surgery discretion. Patient with planned block today and following this we will discontinue his extra breakthrough IV Dilaudid and continue current oral PRN regimen as well as Toradol. Per discussion with podiatry patient will be discharged to home with recommended follow-up with his pain management physician. Per discussions would discontinue his oxycodone when he went home and continue on oral Dilaudid as well as fentanyl patch per his current list per pain management recommendations to podiatry prior to current intervention. During the admission patient has appeared dishonest and the medications that he has been giving including asking for gabapentin from his primary care which is a scheduled medication on but notes to his pain management physician. This was added to his medications during the hospitalization and once added he became extremely sedate and lethargic and requested several times to couple these types of medications with other sedating medications including Dilaudid and Xanax. 2. Rheumatoid Arthritis: Not on any DMARDs, biological regimen secondary to patient insurance/financial issues, CM may be consulted to assist per primary discretion. 3. Chronic Pain Syndrome/Fibromyalgia/DDD w/ radiculopathy: Following with pain management in [place], will continue Lyrica, Cymbalta, Flexeril. Given currently planned for block per anesthesia, following will d/c IV narcotic breakthrough with recommended patient discussion with primary pain management physician to update on current presentation. At discharge per discussion with primary service, podiatry would plan to discontinue his oral oxycodone as will be on oral Dilaudid per his pain management physician with continued transdermal fentanyl patch and if requesting gabapentin will need to discuss this with his pain management physician. 4. Anxiety and Depression: We will continue patient home Cymbalta, Xanax, nightly Ativan. Of note patient also on Paxil in addition, patient would benefit from avoidance of dual agents given already using Cymbalta will defer to outpatient given significant history. 5. Hypertension: We will continue patient home metoprolol, may alter as needed, may add PRN hydralazine if necessary. 6. GERD: Continue home PPI. 7. BPH: We will add back daily scheduled Cialis. 8. DVT prophylaxis: SCDs, Lovenox per primary service discretion. Code Visit Inpatient E&M: 79514 Subs Hosp L2
[2019-07-05 09:11] VITALS: BP 128/71; PULSE 57; RESP 16; TEMP 36.6; O2SAT 97
[2019-07-05] MEDS: Gabapentin 300 MG Capsule PO ×2 (09:33→11:46)
[2019-07-05] MEDS: ALPRAZolam 0.5 MG Tablet 1 MG PO (09:33)
--- NOTE | 2019-07-05 13:09 | CASEMGMT ---
RN MINH called mother and verified that patient has crutches at home. Mother Heaven to bring crutches in when patient is discharged. Patient is currently off unit, will update floor nurse.
--- NOTE | 2019-07-05 13:24 | DCINST_ITS ---
Discharge Activity: May Not Drive, Use Crutches Weight Bearing Status: No weight bearing - No weightbearing right foot Call your doctor if your incision/area has: Continuous Slow Oozing, Sudden Increased Bleeding, Foul Smelling Discharge Call your doctor if you observe: Fever of 101 or Higher, Shortness of breath, Chest pain, Calf discomfort, Uncontrolled pain Cleanse incision/area with: Do not get Incision Wet, Keep Dressing Clean & Dry Allergies/Adverse Reactions: Allergies No Known Allergies Allergy (Verified 07/03/19 09:32) Medications to take at Discharge Loratadine [Claritin] 10 mg PO DAILY 03/26/13 Ibuprofen [Motrin] 600 mg PO Q6H PRN PRN #20 tablet 03/31/13 Testosterone Cypionate [Testone Cik] 200 mg IM MEZA 07/23/15 cycloBENZAPRine HCl [Flexeril] 10 mg PO TID PRN #20 tablet 08/16/15 Paroxetine HCl [Paxil] 30 mg PO QHS 11/25/16 Rabeprazole Sodium [Aciphex] 20 mg PO QHS 11/25/16 Tadalafil [Cialis] 5 mg PO QHS 04/30/17 alprazolam 1 mg tablet 1 mg PO BID #60 tab 07/19/17 amitriptyline 10 mg tablet 30 mg PO QHS #90 tab 07/19/17 zolpidem 10 mg tablet 10 mg PO QHS #30 tab 08/24/17 ALPRAZolam [Xanax] 4 mg PO QHS 11/19/17 Omeprazole [Prilosec] 20 mg PO PRN PRN 11/19/17 Pregabalin [Lyrica] 75 mg PO BID PRN PRN 11/19/17 Metoprolol Succinate 50 mg PO QHS 06/22/18 Duloxetine Hcl [Cymbalta] 30 mg PO QHS PRN 11/17/18 Fentanyl 1 ea TD Q72H 06/30/19 Hydromorphone HCl [Dilaudid] 4 mg PO Q4H PRN PRN #30 tab 07/04/19 Senna/Docusate Sodium [Senokot-S] 1 tab PO BID PRN PRN #60 tab 07/05/19 The following prescriptions were given: Hydromorphone HCl [Dilaudid] 4 mg PO Q4H PRN PRN #30 tab PRN Reason: Pain Score 4-10/10 Prescription Printed Senna/Docusate Sodium [Senokot-S] 1 tab PO BID PRN PRN #60 tab PRN Reason: Constipation Transmission Status: Sent to [facility] Primary Care Physician: Michele Sheffield MD [Primary Care Provider] - Test Results: Test results from this visit will be discussed in further detail at your follow- up appointment, if applicable. Please Follow Up With: Michele Garcia DPM When: next week in office, sooner if needed
--- NOTE | 2019-07-05 13:26 | PCM.DC.SUM ---
Discharge Date and Diagnosis Date of Admission: 07/03/19 Date of Discharge: 07/05/19 - Primary Discharge Diagnosis s/p revision arthrodesis of the right 3rd TMT joint admitted for pain controlled. 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 Operations: None, - - s/p revision arthrodesis 3rd metatarsal cuneiform joint, right foot Summary of Care Provided: The patient is a 38 year old M [] Subjective: Patient underwent revision arthrodesis of the 3rd TMT joint right foot on 07/03/19, patient was admitted for post op pain control. He has a very low pain tolerance and follows with pain management. Pain has been managed with Dilaudid, Toradol, acetaminophen, Flexeril, and his other home medications were continued w/ exception of oxycodone. He is requesting another block. At this time he is going to receive another lower extremity block for further pain management and then he will be discharged home with prescription for Dilaudid 4mg q 4-6 hours prn pain. Per Dr. 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 I spoke with Dr. Ngo who agreed with discharge today. - Physical Exam Vitals/I&O's: Vital Signs Temp Pulse Resp BP Pulse Ox 97.8 F 57 L 16 128/71 H 97 07/05/19 09:11 07/05/19 09:11 07/05/19 09:11 07/05/19 09:11 07/05/19 09:11 Oxygen Delivery Method Room Air Weight: 118.2 kg Body Mass Index (BMI) 33.4 Finger Stick Blood Glucose 102 Intake and Output for Last 24 Hours 07/03/19 07/04/19 07/05/19 23:59 23:59 23:59 Intake Total 723.33 / 1323.33 3250 / 3250 600 / 600 Output Total 650 / 1225 3325 / 3325 1500 / 1500 Balance 73.33 / 98.33 -75 / -75 -900 / -900 General: Oriented x3, Cooperative, No apparent distress Extremities: Capillary Refill Less than 3 Seconds, No Calf Tenderness, - - Dressing right foot is clean, dry and intact, CFT < 2 seconds to all toes, no evidence of post op complication, infection or DVT. Patient relates to chronic pain and requesting a block. Current Medications Acetaminophen (Tylenol) 650 mg PO Q6H PRN PRN PRN Reason: Pain Score 1-10/10 Alprazolam (Xanax) 4 mg PO QHS ON LICENSE OF [facility] Last Admin: 07/05/19 01:26 Dose: 4 mg Documented by: Alprazolam (Xanax) 1 mg PO BID@0800,1700 ON LICENSE OF [facility] Last Admin: 07/05/19 09:33 Dose: 1 mg Documented by: Amitriptyline HCl (Elavil) 30 mg PO QHS ON LICENSE OF [facility] Last Admin: 07/05/19 01:21 Dose: 30 mg Documented by: Cyclobenzaprine HCl (Flexeril) 10 mg PO BID PRN PRN PRN Reason: muscle spasms Last Admin: 07/04/19 17:56 Dose: 10 mg Documented by: Duloxetine HCl (Cymbalta) 30 mg PO QHS PRN PRN Reason: Pain or Fever Enoxaparin Sodium (Lovenox) 40 mg SC DAILY@0600 ON LICENSE OF [facility] Last Admin: 07/05/19 06:44 Dose: 40 mg Documented by: Gabapentin (Neurontin) 300 mg PO TIDCM ON LICENSE OF [facility] Last Admin: 07/05/19 11:46 Dose: 300 mg Documented by: Hydrocortisone Acetate (Anusol Hc) 25 mg RECTAL BID PRN PRN PRN Reason: hemorrhoidal pain Hydromorphone HCl (Dilaudid Inj) 2 mg IV Q2H PRN PRN PRN Reason: Pain Score 6-10/10 Last Admin: 07/05/19 06:45 Dose: 2 mg Documented by: Sodium Chloride () 250 mls @ 15 mls/hr IV .[id number] PRN PRN Reason: Saline Flush Sodium Chloride () 250 mls @ 15 mls/hr IV .[id number] PRN PRN Reason: Additional IVPB Infusion Naloxone HCl 4 mg/ Dextrose 504 mls @ 0 mls/hr IV .Q0M PRN; Protocol PRN Reason: To maintain Resp. rate >10 Ketorolac Tromethamine (Toradol) 30 mg IM Q12H PRN PRN PRN Reason: Pain Score 1-10/10 Stop: 07/10/19 06:01 Metoprolol Succinate ([facility]rol Xl (Beta Kelsie)) [facility] Last Admin: 07/04/19 21:17 Dose: 50 mg Documented by: Naloxone HCl (Narcan) 0.02 mg IV Q1M PRN PRN Reason: RR <10 and pt unresponsive Ondansetron HCl (Zofran) 4 mg IV Q8H PRN PRN PRN Reason: Nausea Pantoprazole Sodium ([facility]ix) [facility] Last Admin: 07/04/19 21:17 Dose: 20 mg Documented by: Paroxetine HCl (Paxil) [facility] Last Admin: 07/05/19 01:21 Dose: 30 mg Documented by: Pregabalin (Lyrica) 75 mg PO BID PRN PRN PRN Reason: nerve pain Last Admin: 07/04/19 21:18 Dose: 75 mg Documented by: Senna/Docusate Sodium (Senokot-S, Kayleigh-Colace) 1 tablet PO BID PRN PRN PRN Reason: Constipation Last Admin: 07/04/19 21:16 Dose: 1 tablet Documented by: Sodium Chloride () 10 - 40 ml IV UD PRN PRN Reason: SALINE FLUSH Last Admin: 07/05/19 04:43 Dose: 20 ml Documented by: Tadalafil (Cialis) 5 mg PO QHS ON LICENSE OF [facility] Last Admin: 07/05/19 01:27 Dose: 5 mg Documented by: Zolpidem Tartrate (Ambien (Generic)) 5 mg PO QHS PRN PRN Reason: INSOMNIA Last Admin: 07/05/19 01:25 Dose: 5 mg Documented by: Discharge Activity: May Not Drive, Use Crutches Weight Bearing Status: No weight bearing - No weightbearing right foot Call your doctor if your incision/area has: Continuous Slow Oozing, Sudden Increased Bleeding, Foul Smelling Discharge Call your doctor if you observe: Fever of 101 or Higher, Shortness of breath, Chest pain, Calf discomfort, Uncontrolled pain Cleanse incision/area with: Do not get Incision Wet, Keep Dressing Clean & Dry Home Medications: Medications to take at Discharge Loratadine [Claritin] 10 mg PO DAILY 03/26/13 Ibuprofen [Motrin] 600 mg PO Q6H PRN PRN #20 tablet 03/31/13 Testosterone Cypionate [Testone Cik] 200 mg IM MEZA 07/23/15 cycloBENZAPRine HCl [Flexeril] 10 mg PO TID PRN #20 tablet 08/16/15 Paroxetine HCl [Paxil] 30 mg PO QHS 11/25/16 Rabeprazole Sodium [Aciphex] 20 mg PO QHS 11/25/16 Tadalafil [Cialis] 5 mg PO QHS 04/30/17 alprazolam 1 mg tablet 1 mg PO BID #60 tab 07/19/17 amitriptyline 10 mg tablet 30 mg PO QHS #90 tab 07/19/17 zolpidem 10 mg tablet 10 mg PO QHS #30 tab 08/24/17 ALPRAZolam [Xanax] 4 mg PO QHS 11/19/17 Omeprazole [Prilosec] 20 mg PO PRN PRN 11/19/17 Pregabalin [Lyrica] 75 mg PO BID PRN PRN 11/19/17 Metoprolol Succinate 50 mg PO QHS 06/22/18 Duloxetine Hcl [Cymbalta] 30 mg PO QHS PRN 11/17/18 Fentanyl 1 ea TD Q72H 06/30/19 Hydromorphone HCl [Dilaudid] 4 mg PO Q4H PRN PRN #30 tab 07/04/19 Senna/Docusate Sodium [Senokot-S] 1 tab PO BID PRN PRN #60 tab 07/05/19 Following Prescrptions Were Given to Patient: Hydromorphone HCl [Dilaudid] 4 mg PO Q4H PRN PRN #30 tab PRN Reason: Pain Score 4-10/10 Prescription Printed Senna/Docusate Sodium [Senokot-S] 1 tab PO BID PRN PRN #60 tab PRN Reason: Constipation Transmission Status: Received by [facility] Primary Care Physician: Michele Sheffield MD [Primary Care Provider] - Please Follow Up With: Michele Garcia DPM When: next week in office, sooner if needed Disposition: Home Medical Necessity - Tobacco Use Smoking Status: Never smoker Tobacco Use: Non-smoker Meaningful Use Info Meaningful Use Diagnoses (Choose all that apply): None applicable
--- NOTE | 2019-07-05 14:16 | CASEMGMT ---
SPRING WILKINSON updated by floor nurse that mother is stating that crutches are broken. SPRING WILKINSON spoke with mother and updated her that CM will setup crutches for patient to discharge with. [facility] transport van to take patient home. SPRING WILKINSON updated floor nurse.
[2019-07-05] MEDS: Pregabalin 75 MG Capsule PO (14:19)
== END 2019-07-05 15:00 | disposition home or self-care (01) | DRG 850 ==
LOC: SDC 14:30 → MS3 14:30
PROVIDERS: Anesthesiology; Admitting Provider Podiatrist; Family Provider Family Medicine; PCP Family Medicine; Referring Provider Podiatrist; Visit Provider Family Medicine
PROC: 0SGK07Z Fusion of Right Tarsometatarsal Joint with Autologous Tissue Substitute, Open Approach (ICD-10-PCS; principal; 2019-07-03 10:45)
PROC: 3E0T3BZ Introduction of Anesthetic Agent into Peripheral Nerves and Plexi, Percutaneous Approach (ICD-10-PCS; principal; 2019-07-05 13:55)
DX: M96.0 Pseudarthrosis after fusion or arthrodesis (principal); Y83.8 Other surgical procedures as the cause of abnormal reaction of the patient, or of later complication, without mention of misadventure at the time of the procedure; I10 Essential (primary) hypertension; M79.7 Fibromyalgia; F84.5 Asperger's syndrome; M06.9 Rheumatoid arthritis, unspecified; K21.9 Gastro-esophageal reflux disease without esophagitis; N40.0 Benign prostatic hyperplasia without lower urinary tract symptoms; F32.9 Major depressive disorder, single episode, unspecified; F41.9 Anxiety disorder, unspecified
CPT/HCPCS: 36415; 73630; 76000; 80048; 85025; 88304; 88305; 88311; 93005; 97163; 99251; C1713; J7120; A4216; G0463

== ENCOUNTER 2020-03-24 07:45 | Emergency (ER) | payer MEDICAID, SELFPAY ==
[2019-07-03 15:58] VITALS: BMI 33.4
[2020-03-24 07:47] VITALS: BP 113/98; PULSE 102; RESP 18; TEMP 36.8; O2SAT 99; BMI 21.2
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
--- NOTE | 2020-03-24 08:05 | RAD_ITS ---
STUDY: X-RAY - RIGHT FOOT CLINICAL: Male, 39 years old. FELL TECHNIQUE: 3 view(s) of the foot. COMPARISON: None. FINDINGS: Normal talus, calcaneus, and tarsal bones. There is bony ankylosis of the first and second tarsal-metatarsal articulations with single screw at in the medial mid foot. Surgical plate and screws of the third tarsal-metatarsal articulation also identified. Normal metatarsi. There is degenerative arthrosis of the metatarsophalangeal joint of the hallux . Normal tibial and fibular sesamoid bones. Normal interphalangeal joint of the great toe. Normal phalanges of the great toe. Normal second through fifth metatarsophalangeal joints. Normal interphalangeal joints and phalanges of the lesser toes. The soft tissue structures are unremarkable. RAD/Foot min 3 Views IMPRESSION: 1. Stable operative changes. No fracture or malalignment. Electronically Signed: Dakota Benitez MD (Brooks) at 8:37 EDT , Service support ,
--- NOTE | 2020-03-24 08:48 | NURSING ---
DR RUANO IN ROOM
--- NOTE | 2020-03-24 09:06 | PCM.CONS.GEN ---
Problem List (1) Fall down stairs Status: Acute (2) Right foot pain Status: Chronic Comment: acute on chronic (3) Lisfranc dislocation Status: Chronic Qualifiers: Encounter type: sequela Laterality: right Qualified Code(s): S93.324S - Dislocation of tarsometatarsal joint of right foot, sequela (4) Chronic pain due to trauma Status: Chronic Reason for Consult Date of Consultation: 03/24/20 Reason for Consultation: Right foot pain History of Present Illness: The patient is a 39 year old M with significant past medical history of Asperger's, fibromyalgia, and chronic pain syndrome sustained a Lisfranc fracture dislocation that required surgery in 2017. He has developed a nonunion with revisional surgery this past June [address] Garcia. In the most recent setting, he reports he fell down some stairs at 6:30 AM which exacerbated his right foot pain condition while he was traveling to the bathroom. He denies immediate swelling or bruising. He relates his pain is unbearable and rated it high on the pain scale. He denies loss of consciousness or other new injuries during the fall. He was brought into the emergency room via ambulance. 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) Corneal abrasion (Chronic) Laceration (Chronic) Fibromyalgia (Chronic) Medical History: Medical History (Last Updated 08/24/17 @ 15:36 by Ana Felix) Degenerative disc disease (Chronic) Aspergers' syndrome (Chronic) F84.5 Rheumatoid arthritis (Acute) M06.9 Back problem (Chronic) M53.9 Arthritis (Chronic) M19.90 Allergies No Known Allergies Allergy (Verified 03/24/20 07:49) Home Medications: Ambulatory Orders Medication Instructions Recorded Loratadine [Claritin] 10 mg PO DAILY 03/26/13 Ibuprofen [Motrin] 600 mg PO Q6H PRN PRN #20 tablet 03/31/13 Testosterone Cypionate [Testone 200 mg IM MEZA 07/23/15 Cik] cycloBENZAPRine HCl [Flexeril] 10 mg PO TID PRN #20 tablet 08/16/15 Paroxetine HCl [Paxil] 30 mg PO QHS 11/25/16 Rabeprazole Sodium [Aciphex] 20 mg PO QHS 11/25/16 Tadalafil [Cialis] 5 mg PO QHS 04/30/17 alprazolam 1 mg tablet 1 mg PO BID #60 tab 07/19/17 amitriptyline 10 mg tablet 30 mg PO QHS #90 tab 07/19/17 zolpidem 10 mg tablet 10 mg PO QHS #30 tab 08/24/17 ALPRAZolam [Xanax] 4 mg PO QHS 11/19/17 Omeprazole [Prilosec] 20 mg PO PRN PRN 11/19/17 Pregabalin [Lyrica] 75 mg PO DAILY PRN PRN 11/19/17 Metoprolol Succinate 50 mg PO QHS 06/22/18 Senna/Docusate Sodium [Senokot-S] 1 tab PO BID PRN PRN #60 tab 07/05/19 Surgical History: Surgical History (Last Updated 07/19/17 @ 15:32 by Carri Mccain) of foot surgery Z98.890 Surgical History: - - devited septum, tonsillectemy Smoking Status: Never smoker - *Family History Paternal Family History: Family History (Last Updated 07/19/17 @ 15:50 by Carri Mccain) Father Anxiety Depression Myocardial infarction mental disorders Seizures Mother Arthritis History Items: - - father with etoh, at age 40 and of a seizure Review of Systems Constitutional: Denies: Chills, Fever Cardiovascular: Denies: Claudication Respiratory: Denies: Cough, Shortness of Breath Gastrointestinal: Denies: Nausea, Vomiting Musculoskeletal: Reports: Foot Pain. Denies: Leg Pain Skin: Denies: Wounds Neurological: Reports: Numbness Hematologic/ Lymphatic: Denies: Easy Bruising Patient Problems: Active and Suspected Problems (Last Updated 08/24/17 @ 15:36 by Ana Felix) Fall down stairs (Acute) - Physical Exam Vitals/I&O's: Vital Signs Temp Pulse Resp BP Pulse Ox 98.3 F 102 H 18 113/98 H 99 03/24/20 07:47 03/24/20 07:47 03/24/20 07:47 03/24/20 07:47 03/24/20 07:47 Oxygen Delivery Method Room Air Weight: 74.843 kg Body Mass Index (BMI) 21.2 Finger Stick Blood Glucose 102 General: Alert, Oriented x3, Cooperative, - - In distress HEENT: Atraumatic Extremities: No cyanosis, No edema, Capillary Refill Less than 3 Seconds, No Calf Tenderness, Peripheral Pulses Normal, Tenderness, - - No skin tenting. Compartments of foot ankle and leg remain soft to palpate Skin: Incision - To dorsal cicatrix right foot without infection, gapping, or open lesion., - - No ecchymosis, erythema, bogginess or fluctuance on palpation. Musculoskeletal: No Muscle Wasting, - - Able to perform active range of motion of the digits and ankle of the right lower extremity. He has hypersensitivity to light touch to the right foot that is not noted after distraction. He has deep pain on palpation to the dorsal lateral midfoot Neurological: Sensory exam intact to light touch and pain Psych/Mental Status: Normal Affect, Appropriate, Anxious, Restless Assessment/Plan All Active Problems (Last Updated 08/24/17 @ 15:36 by Ana Felix) Painful retained right foot hardware (Acute) Fall down stairs (Acute) Rheumatoid arthritis (Acute) Inadequate pain control (Acute) Right foot pain exacerbation with recent fall downstairs History of Lisfranc fracture dislocation with open reduction internal fixation, nonunion, and chronic pain Chronic pain syndrome Asperger's I discussed his case. His vitals are stable and he is afebrile. I reviewed his x-rays. His previous injury site and surgically placed hardware appears to be intact without disruption. There is no evidence of hardware malfunction. I do not see any acute injuries or diastases of the current Lisfranc joints. This is unchanged compared to his prior clinical [facility]. He does not appear to have any clinical signs of infection, skin tenting nor evidence of significant tissue compromise. We discussed his chronic pain issue. I recommend he continues to follow-up with pain management clinic, Dr. Garcia. I offered him a local anesthetic block which was performed today after verbal consent in the emergency room. Preparation of the skin with isopropyl alcohol was also performed and 20 cc of a one-to-one mix of 1% lidocaine plain and 0.5% Marcaine plain was administered in typical ankle block fashion of the right lower extremity. Immediately after administration he did not demonstrate any hypersensitivity with manipulation of the foot and palpation his foot skin. Pressure was applied to maintain hemostasis and a Band-Aid was applied. He tolerated this well. He has a cam walker boot at home and he was advised to resume walking in the cam walker boot if he is unable to bear weight. To avoid exacerbating activities and to reduce overall activity for the next couple of days. To elevate for pain and inflammation control. He understands he will need to follow-up in outpatient setting with Dr. Garcia at the [facility] [place]. He also understands, in the future this is a more appropriate outpatient clinical visit. I discussed this case with emergency room physician as well. I answered the patient's questions. Please do not hesitate to call if you have any questions. Suze Lisa DPM, FACF[facility] [phone]
[2020-03-24] MEDS: Bupivacaine Mpf 0.5% 30 ML VIAL 10 ML INFILT (09:12)
== END 2020-03-24 09:13 | disposition home or self-care (01) ==
PROVIDERS: Emergency Provider Emergency Medicine; PCP Family Medicine
DX: M79.671 Pain in right foot (principal); F32.9 Major depressive disorder, single episode, unspecified; M19.90 Unspecified osteoarthritis, unspecified site; M79.7 Fibromyalgia; W19.XXXA Unspecified fall, initial encounter
CPT/HCPCS: 73630; 99284

== ENCOUNTER → 2020-05-20 17:34 | Outpatient (CLI) | payer MEDICAID, SELFPAY ==
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
== END ==
PROVIDERS: PCP Family Medicine; Referring Provider Podiatrist; Visit Provider Podiatrist
DX: M19.071 Primary osteoarthritis, right ankle and foot (principal)
CPT/HCPCS: 73700

== ENCOUNTER 2020-10-22 00:16 | Emergency (ER) | payer MEDICAID, SELFPAY ==
[2020-10-22 00:17] VITALS: BP 155/113; PULSE 96; RESP 16; TEMP 36.2; O2SAT 100; BMI 35.4
--- NOTE | 2020-10-22 00:24 | EX.ED.DYSGE1 ---
HPI History of Present Illness Chief Complaint: Bite Informant: patient Onset/Context/Timing Onset: Yesterday Context: Sudden Onset Timing: Continuous Quality: Redness, warmth, itching Location: Volar surface left wrist Current Severity: Mild Maximum Severity: Moderate Worsened by: None thing Relieved by: Nothing Associated Symptoms Associated Symptoms: Pain itching and redness with warmth Narrative Narrative: Patient is a 39-year-old [id number] male presents after reported spider bite. He did not see the spider bite him. He states he felt crawl on his arm felt a sting. He presents now because of pain, redness and warmth. He denies history diabetes. [place] fever or chills. Eyes atraumatic fever, heart murmur, SBE or being immune suppressed. He denies paresthesia, anesthesia or motor weakness. Prior similar symptoms: No Recent Illness/Hospitalization: No PFSH PFS Medical History Arthritis Aspergers' syndrome Back problem Degenerative disc disease History of prostate cancer Rheumatoid arthritis Home Medications loratadine [Allergy Relief (loratadine)] 10 mg PO DAILY 03/26/13 [History Last Taken 11/26/16] ibuprofen 600 mg PO Q6H PRN PRN #20 tablet 03/31/13 [Rx Last Taken 09/29/16] testosterone cypionate [Testone CIK] 200 mg IM MEZA 07/23/15 [History Last Taken 11/05/16] cyclobenzaprine 10 mg PO TID PRN #20 tablet 08/16/15 [Rx Last Taken 11/25/16] paroxetine HCl [Paxil] 30 mg PO QHS 11/25/16 [History Last Taken 11/25/16] rabeprazole [AcipHex] 20 mg PO QHS 11/25/16 [History Last Taken 11/25/16] tadalafil [Cialis] 5 mg PO QHS 04/30/17 [History Last Taken Unknown] alprazolam 1 mg tablet 1 mg PO BID #60 tab 07/19/17 [Rx Last Taken Unknown] amitriptyline 10 mg tablet 30 mg PO QHS #90 tab 07/19/17 [Rx Last Taken Unknown] zolpidem 10 mg tablet 10 mg PO QHS #30 tab 08/24/17 [Rx Last Taken Unknown] alprazolam [Xanax] 4 mg PO QHS 11/19/17 [History Last Taken Unknown] omeprazole 20 mg PO PRN PRN 11/19/17 [History Last Taken 11/19/17 05:00] pregabalin 75 mg PO DAILY PRN PRN 11/19/17 [History Last Taken Unknown] metoprolol succinate 50 mg PO QHS 06/22/18 [History Last Taken Unknown] sennosides-docusate sodium 1 tab PO BID PRN PRN #60 tab 07/05/19 [Rx Last Taken Unknown] clindamycin HCl [Cleocin HCl] 300 mg PO Q6H #28 capsule 10/22/20 [Rx Last Taken Unknown] Allergy/AdvReac Type Severity Reaction Status Date / Time No Known Allergies Allergy Verified 03/24/20 07:49 Family History Father Anxiety Depression Myocardial infarction mental disorders Seizures Mother Arthritis Surgical History (Updated 11/19/17 @ 12:[address] Donte Correa MD) Hx of foot surgery no surgical history Social History Smoking Status: Never smoker alcohol intake: never substance use type: does not use what type of physical activity do you participate in: none ROS ROS ED Constitutional Constitutional ED: Denies chills, fever(s), subjective or sweats Eyes Eyes: Denies blurry vision or change in vision ENT ENT ED: Denies ear pain, rhinorrhea or sore throat Cardiovascular Cardiovascular: Denies chest pain Respiratory/Chest Respiratory/Chest: Denies dyspnea Gastrointestinal Gastrointestinal: Denies nausea or vomiting Musculoskeletal Musculoskeletal: Denies arthralgias, back pain, myalgias or neck pain Integumentary Reports rash; Denies abscess Neurologic Neurologic: Denies paresthesias or weakness EXAM Physical Exam Const Vital Signs: 10/22/20 00:17 Temperature 97.2 F L Temperature Source Temporal Pulse Rate 96 Respiratory Rate 16 Blood Pressure 155/113 H Blood Pressure Mean 127 Pulse Ox 100 Oxygen Delivery Method Room Air Positive well nourished and well developed General Appearance ED: well developed and NAD; Negative for pallor HEENT Reports moist mucous membranes HEENT Narrative: Nose and nasal mucosa normal. Right and left ear normal. Neck no lymphadenopathy and supple Resp normal respiratory effort and clear to auscultation bilaterally Cardio regular rate, regular rhythm, S1 normal heart sound, S2 normal heart sound and no murmurs Extremity Negative for normal to inspection General Extremety ED: Yes tenderness; Negative for edema General Extremity: Negative for edema Neuro oriented x3, CN's II-XII intact bilaterally and no sensory deficits noted Sensorium / Orientation: alert Motor Exam: strength 5/5 throughout Psych mental status grossly normal Skin no wounds General Skin Exam: Negative for jaundice or pallor Rashes: rashes noted Blanching erythematous warm rash with mild induration. There is no lymphangitis. Narrative: There is no epitrochlear or axillary lymphadenopathy. MDM MDM MDM Narrative Medical decision making narrative: Patient with rash that is probably a combination of local allergic reaction as well as cellulitis. He was treated with clindamycin. He received his first dose in the emergency department. Discharge Plan Triage Chief Complaint: Bite ED Provider: Saman Pinto Dx/Rx/DC Orders Clinical Impression: Cellulitis of left wrist Instructions: ED Cellulitis Prescriptions: New clindamycin HCl [Cleocin HCl] 300 MG capsule 300 mg PO Q6H Qty: 28 RF: 0 No Action amitriptyline 10 MG tablet 30 mg PO QHS Qty: 90 RF: 2 alprazolam 1 mg tablet 1 mg PO BID Qty: 60 RF: 0 zolpidem 10 MG tablet 10 mg PO QHS Qty: 30 RF: 0 loratadine [Allergy Relief (loratadine)] 10 MG tablet 10 mg PO DAILY RF: 0 ibuprofen 600 MG tablet 600 mg PO Q6H PRN PRN (Reason: Pain) Qty: 20 RF: 0 testosterone cypionate [Testone CIK] 200 MG/ML kit 200 mg IM MEZA RF: 0 cyclobenzaprine 10 MG tablet 10 mg PO TID PRN (Reason: Muscle Spasm) Qty: 20 RF: 0 rabeprazole [AcipHex] 20 MG tablet,delayed release (DR/EC) 20 mg PO QHS RF: 0 paroxetine HCl [Paxil] 30 MG tablet 30 mg PO QHS RF: 0 tadalafil [Cialis] 5 tablet 5 mg PO QHS RF: 0 omeprazole 20 MG capsule 20 mg PO PRN PRN (Reason: Heartburn) RF: 0 pregabalin 75 MG capsule 75 mg PO DAILY PRN PRN (Reason: nerve pain) RF: 0 alprazolam [Xanax] 2 MG tablet 4 mg PO QHS RF: 0 metoprolol succinate 50 MG tablet extended release 24 hr 50 mg PO QHS RF: 0 sennosides-docusate sodium 1 TABLET tablet 1 tab PO BID PRN PRN (Reason: Constipation) Qty: 60 RF: 0 Primary Care Provider: Michele Sheffield Referrals: Michele Sheffield MD [Primary Care Provider] - 2 Days for wound check Disposition Disposition: Home, self care
[2020-10-22] MEDS: Clindamycin HCl 150 MG Capsule 300 MG PO (00:32)
[2020-10-22] MEDS: HYDROcodone Bitartrate/Apap 5/325 Tablet PO (00:32)
[2020-10-22] MEDS: DiphenhydrAMINE 25 MG Capsule PO (01:10)
== END 2020-10-22 02:10 | disposition home or self-care (01) ==
LOC: ED 00:44
PROVIDERS: Emergency Provider Emergency Medicine; PCP Family Medicine
DX: L03.114 Cellulitis of left upper limb (principal); M19.90 Unspecified osteoarthritis, unspecified site; M06.9 Rheumatoid arthritis, unspecified; Z79.899 Other long term (current) drug therapy
CPT/HCPCS: 99285